=== PATIENT | male | born 1970 | race African-American/Black ===

== ENCOUNTER → 2020-12-01 16:14 | Outpatient (BNVA) | payer OTHER, SELFPAY | PROVIDERS: PCP Internal Medicine; Visit Provider Urology ==

== ENCOUNTER → 2021-01-06 14:11 | Outpatient (BNVA) | payer OTHER, SELFPAY | PROVIDERS: PCP Internal Medicine; Visit Provider Urology | DX: Z13.89 Encounter for screening for other disorder (principal) ==

== ENCOUNTER → 2021-05-26 15:31 | Outpatient (BNVA) | payer OTHER, SELFPAY | PROVIDERS: PCP Internal Medicine; Visit Provider Urology ==

== ENCOUNTER → 2021-11-24 14:23 | Outpatient (BNVA) | payer OTHER, SELFPAY | PROVIDERS: PCP Internal Medicine; Visit Provider Urology | DX: Z13.89 Encounter for screening for other disorder (principal) ==

== ENCOUNTER 2024-01-02 09:01 | Outpatient (AMB) | payer OTHER, SELFPAY ==
--- NOTE | 2024-01-02 09:11 | MHC.OFFVIS ---
Intake Visit Reasons: Hematuria follow up Intake Note: Patient is Present for Follow Up Hematuria Urology Medication: Dutasteride Antibiotic Allergies:None Blood Thinners:None Patient recently was experiencing Hematuria Allergies shellfish derived [SHELLFISH DERIVED] Allergy (Mild, Unverified 05/27/20 17:10) HIVES Medication List - Last Reconciled 01/02/24 by Miguel Ángel Soriano MD albuterol sulfate 90 mcg/actuation 0 mcg inhalation ciprofloxacin HCl 500 mg PO BID 7 days dutasteride 0.5 mg PO DAILY dutasteride 0.5 mg PO DAILY prednisone mg PO tranexamic acid 650 mg PO Q8H 10 days HPI Comments Details: Tyshawn VEGA is a very pleasant male. He is a patient of Dr. Rowe. He is seen for the following urologic conditions - lower urinary tract symptoms - recurring hematuria Previous persistent hematuria Had recommended repeat laser of prostate Has been given TXA previously Lower Urinary Tract Symptoms: Continue with plan follow-up. Current visit is for further evaluation of, lower urinary tract symptoms, predominate obstructive symptoms. Current treatment includes medication, 5-AR. Prior treatments include 03/26 , procedure, TURP. Prostate Symptom Score Moderate (9-19), Bother 3. Symptoms include incomplete emptying, weak stream, nocturia (>2), and are progressing. Results from testing include cystoscopy Enlarged median lobe 04/26 renal/bladder us Yes PVR 50 prostate size 70 Prior Prostate Score mild. Prostate volume 50+gm. Testing at next visit will include Prostate Symptom Score. Treatment plan continue with current medications [facility] Medical History Asthma Bladder outlet obstruction Dysuria Gross hematuria Hematuria Review of Systems Const Denies chills and Denies fever(s) Card Reports no additional complaints and Denies syncope Resp Denies cough GI Denies abdominal pain and Denies heartburn Reports as per HPI and Denies change in libido Neuro Denies syncope Psych Denies change in libido Endo Denies change in libido Physical Exam Const General: cooperative, healthy appearing, comfortable and no acute distress Orientation/consciousness: patient oriented x3 HEENT Face and sinus: Yes normal facial exam Mouth: moist mucous membranes Neck Neck: Yes normal visual inspection, Yes full ROM and Yes trachea midline Chest Chest palpation & inspection: normal inspection of the chest Resp Effort & Inspection: normal respiratory effort, able to speak in complete sentences and no respiratory distress GI Inspection: Yes normal to inspection Back/Spine/Pelvis Cervical Spine: normal cervical lordosis Thoracic/Lumbar Spine: thoracic and lumbar spine normal to inspection Skin General skin exam: no rashes or lesions noted Neuro General: patient oriented x3, gait normal, tone normal and moves all extremities Extrem General: Yes normal to inspection and Yes capillary refill normal Assessment & Plan Assessment & Plan (1) BPH w urinary obs/LUTS: Code(s): N40.1 - Benign prostatic hyperplasia with lower urinary tract symptoms; N13.8 - Other obstructive and reflux uropathy Category: Medical (2) Gross hematuria: Code(s): R31.0 - Gross hematuria Category: Medical Plan Risks, benefits and alternatives to therapy were discussed. These include but are not limited to infection, bleeding, damage to local organs and tissues, need for further interventions. Anesthetic risks regarding cardiac arrhythmia, blood clots, and potential mortality were discussed. The patient understands the typical recovery time and the outpatient nature of the procedure. After consideration of these risks the patient gives full informed consent and they wish to move ahead with the procedure. GreenLight laser prostatectomy Orders: Orders AMB Urinalysis Automated Today R31.0 - Gross hematuria, Z13.9 - Encounter for screening, unspecified Patient Instructions: Imaging studies, laboratory and physical exam results were discussed and reviewed in detail. No major barriers to patient understanding were identified. An opportunity to ask questions regarding the treatment plan was provided. All questions were answered. The patient expressed understanding and agreement with the above treatment plan. The patient is aware they should contact our office by phone for worsening of their current condition or the appearance of new urologic symptoms. Compliance is encouraged with any medications and followup testing that is ordered. It is a privilege to participate in the urologic care of your patient. If you have any questions or concerns regarding treatment for the above conditions, or other urologic issues, please do not hesitate to contact me. The office telephone contact is [phone]. This note is constructed using voice recognition software. While every effort has been made to ensure accuracy food service associate errors may have been included. Yours sincerely, Dr Miguel Ángel Soriano MD, [facility] - Urology Providers of Expert, Compassionate Care for the Genitourinary System Coding Level of Care Code Est Pt Level 4 (31122) Diagnoses BPH w urinary obs/LUTS N40.1; N13.8 Gross hematuria R31.0
== END 2024-01-02 10:15 | disposition home or self-care (01) ==
PROVIDERS: PCP Nurse Practitioner Family; Visit Provider Urology
DX: N40.1 Benign prostatic hyperplasia with lower urinary tract symptoms (principal); N13.8 Other obstructive and reflux uropathy; R31.0 Gross hematuria
CPT/HCPCS: 99213

== ENCOUNTER → 2024-01-02 09:01 | Outpatient (BNVA) | payer OTHER, SELFPAY | PROVIDERS: PCP Nurse Practitioner Family; Visit Provider Urology ==

== ENCOUNTER 2024-02-12 14:25 | Outpatient (AMB) | payer OTHER, SELFPAY ==
--- NOTE | 2024-02-12 14:25 | MHC.OFFVIS ---
Intake Visit Reasons: medication review(Terazosin) Intake Note: Patient is Present for Telephone Follow Up For Med Review Urology Med: Dutasteride, Terazosin Antibiotic Allergy: None Blood Thinner: None Allergies shellfish derived [SHELLFISH DERIVED] Allergy (Mild, Verified 02/12/24 14:27) HIVES Medication List - Last Reconciled 02/12/24 by Miguel Ángel Soriano MD albuterol sulfate 90 mcg/actuation 0 mcg inhalation dutasteride 0.5 mg PO DAILY prednisone mg PO terazosin 10 mg PO BEDTIME 90 days tranexamic acid 650 mg PO Q8H 10 days HPI Comments Details: Tyshawn VEGA is a very pleasant male. He is a patient of Dr. Rowe. He is seen for the following urologic conditions - lower urinary tract symptoms - recurring hematuria Telemedicine Evaluation 15 min Consultation [employer] Jackie Video Dutasteride renewed Terazosin renew Has tranexamic acid Planned prostate procedure for April Lower Urinary Tract Symptoms: Continue with plan follow-up. Current visit is for further evaluation of, lower urinary tract symptoms, predominate obstructive symptoms. Current treatment includes medication, 5-AR. Prior treatments include 03/26 , procedure, TURP. Prostate Symptom Score Moderate (9-19), Bother 3. Symptoms include incomplete emptying, weak stream, nocturia (>2), and are progressing. Results from testing include cystoscopy Enlarged median lobe 04/26 renal/bladder us Yes PVR 50 prostate size 70 Prior Prostate Score mild. Prostate volume 50+gm. Testing at next visit will include Prostate Symptom Score. Treatment plan continue with current medications [facility] Medical History Hematuria Asthma Dysuria Gross hematuria Bladder outlet obstruction Review of Systems Const All systems reviewed & are unremarkable except as noted in HPI and below Reports no additional complaints Resp Reports no additional complaints GI Reports no additional complaints Reports as per HPI Musc Reports no additional complaints Physical Exam Telemedicine evaluation Appropriate responses Regular breathing rate and rhythm HEENT Head: Yes normal to inspection Ears: hearing grossly normal bilaterally Eyes General: appearance normal, both eyes and all related structures Neck Neck: Yes normal visual inspection Chest Chest palpation & inspection: normal inspection of the chest Resp Effort & Inspection: normal respiratory effort and able to speak in complete sentences Telehealth Telehealth Telehealth Platform: [employer] Location of provider rendering services: practice address Location of patient: address on file Patient Identification confirmed using: Name, : Yes Telehealth method: video Patient verbally consented to treatment: Yes Patient verbally consented to billing insurance company: Yes Patient informed of any privacy concerns related to visit: Yes Minutes spent on Phone/Video with Pt.: 15 Assessment & Plan Assessment & Plan (1) BPH w urinary obs/LUTS: Code(s): N40.1 - Benign prostatic hyperplasia with lower urinary tract symptoms; N13.8 - Other obstructive and reflux uropathy Category: Medical (2) Gross hematuria: Code(s): R31.0 - Gross hematuria Category: Medical Plan Risks, benefits and alternatives to therapy were discussed. These include but are not limited to infection, bleeding, damage to local organs and tissues, need for further interventions. Anesthetic risks regarding cardiac arrhythmia, blood clots, and potential mortality were discussed. The patient understands the typical recovery time and the outpatient nature of the procedure. After consideration of these risks the patient gives full informed consent and they wish to move ahead with the procedure. April procedure prostate Medications: New terazosin 10 mg PO BEDTIME 90 caps 1RF 90 days Refilled dutasteride 0.5 mg PO DAILY 90 caps 1RF N13.8 - Other obstructive and reflux uropathy, N40.1 - Benign prostatic hyperplasia with lower urinary tract symptoms Patient Instructions: Imaging studies, laboratory and physical exam results were discussed and reviewed in detail. No major barriers to patient understanding were identified. An opportunity to ask questions regarding the treatment plan was provided. All questions were answered. The patient expressed understanding and agreement with the above treatment plan. The patient is aware they should contact our office by phone for worsening of their current condition or the appearance of new urologic symptoms. Compliance is encouraged with any medications and followup testing that is ordered. It is a privilege to participate in the urologic care of your patient. If you have any questions or concerns regarding treatment for the above conditions, or other urologic issues, please do not hesitate to contact me. The office telephone contact is [phone]. This note is constructed using voice recognition software. While every effort has been made to ensure accuracy puller machine errors may have been included. Yours sincerely, Dr Miguel Ángel Soriano MD, [facility] - Urology Providers of Expert, Compassionate Care for the Genitourinary System Coding Level of Care Code Tele Est Pt Level 3 (11893) Diagnoses BPH w urinary obs/LUTS N40.1; N13.8 Gross hematuria R31.0
--- OUTSIDE RECORDS SUMMARY | 2024-02-15 09:58 | XMS_ITS | Continuity of Care Document ---
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 Name Role Phone Cynthia Jerome MD Primary Care Physician Encounter [facility] [place] Date(s): 10/05/19 - 10/15/19 [facility] [address] [place] [address]- [facility] Attending Physician: hSivani Laboy Admitting Physician: Shivani Laboy Referring Physician: AdmtrShivani Allergies, Adverse Reactions, Alerts Substance Reaction Severity Status shellfish hives Persistent Severe Active Other Food Allergy 1 Active 1crab meat Immunizations Given and Recorded Vaccine Date Status Refusal Reason influenza virus vaccine, inactivated 1 05/27/19 Gi inna influenza virus vaccine, inactivated 06/17/18 Give n influenza virus vaccine, inactivated 06/18/17 Give n influenza virus vaccine, inactivated 06/20/16 Give n influenza virus vaccine, inactivated 11/22/15 Give n influenza virus vaccine, inactivated 10/31/13 Give n tetanus/diphtheria/pertussis, acel(Tdap) 08/20/17 Given FluLaval (oldterm) 2 09/20/12 Given Tet/Diphth/Acel, Pertussis (oldterm) 08/30/07 Give n Pneumococcal Vaccine (oldterm) 3 12/07/06 Given 1Result Comment: [facility] [id number] 2Admin Note: vis date 03/11/2012 3Result Comment: [id number] Medications cetirizine 10 mg oral tablet See Instructions, # 90 tablet, Refills 4 Tot. Refills 4, TAKE ONE TABLET BY MOUTH EVERY NIGHT AT BEDTIME, [facility] Start Date: 01/07/19 Status: Ordered DuoNeb 3 mg-0.5 mg/3 ml inhalation solution 3 mL, Neb, 3 times a day, # 63 mL, 0 Refills, Maintenance, 01/04/17 18:58:49, Solution, 3 mL Neb 3 times a day,x7 days Start Date: 01/04/17 Stop Date: 01/11/17 Status: Ordered fluticasone 50 mcg/inh nasal spray See Instructions, # 16 Gm, Refills 5 Tot. Refills 5, USE 2 SPRAYS IN EACH NOSTRIL DAILY, [facility] Start Date: 01/07/19 Status: Ordered predniSONE 20 mg oral tablet See Instructions, 3 tablets for 3 days, then 2 tablets for 3 days thyen 1 tablet for 3 days, # 18 tablet, 0 Refills, Acute 10/16/19 12:26:00 EST, 10/05/19 12:25:00 EST, Tablet, [id number], 183, cm, 10/05/19 12:00:00 EST, Height, 186.1... Start Date: 10/05/19 Stop Date: 10/16/19 Status: Ordered Problem List Condition Effective Dates Status Health Status Inform ant Acid reflux(Confirmed) Active Asthma, moderate persistant(Confirmed) Active Hypercholesterolemia(Confirmed) Active HTN (hypertension)(Confirmed) Active Morbid Obesity(Confirmed) Active Obesity due to excess calories(Confirmed) Active Prostatism(Confirmed) Active Seasonal allergic rhinitis(Confirmed) Active Sleep apnea(Confirmed) Active Chest tightness(Confirmed) Active Vitamin D deficiency(Confirmed) Active Social History Social History Type Response Tobacco Other: 20 packyear h x, quit 2006. Sex
--- OUTSIDE RECORDS SUMMARY | 2024-02-15 09:58 | XMS_ITS | Continuity of Care Document ---
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 Gas Metal Arc Name Role Phone Rosario WOODY, Erin Primary Care Physician Encounter [facility] [place] Date(s): 10/05/19 - 10/12/19 [facility] [address] [place] [address]- [facility] Attending Physician: Heri WOODY, Booker Weber Referring Physician: Erick Rucker MD Allergies, Adverse Reactions, Alerts Substance Reaction Severity [...] Vaccine (oldterm) 3 12/07/06 Given 1Result Comment: [facility] [id number] 2Admin Note: vis date 03/11/2012 3Result Comment: [id number] Medications cetirizine 10 mg oral tablet See Instructions, # 90 tablet, Refills 4 Tot. Refills 4, TAKE ONE TABLET BY MOUTH EVERY NIGHT AT BEDTIME, [facility] Start Date: 01/07/19 Status: [...] USE 2 SPRAYS IN EACH NOSTRIL DAILY, [facility] Start Date: 01/07/19 Status: Ordered predniSONE 20 mg oral tablet See Instructions, 3 tablets for 3 days, then 2 tablets for 3 days thyen 1 tablet for 3 days, # 18 tablet, 0 Refills, Acute 10/16/19 12:26:00 EST, 10/05/19 12:25:00 EST, Tablet, [id number], 183, cm, 10/05/19 12:00:00 EST, Height, 186.1... Start Date: 10/05/19 Stop Date: 10/16/19 Status: Ordered Problem List Condition Effective Dates Status Health Status Inform ant Acid reflux(Confirmed) Active Asthma, moderate persistant(Confirmed) Active Hypercholesterolemia(Confirmed) Active HTN (hypertension)(Confirmed) Active Morbid Obesity(Confirmed) Active Obesity due to excess calories(Confirmed) Active Prostatism(Confirmed) Active Seasonal allergic rhinitis(Confirmed) Active Sleep apnea(Confirmed) Active Chest tightness(Confirmed) Active Vitamin D deficiency(Confirmed) Active Vital Signs Most recent to oldest [Reference Range]: 1 Height 183 cm (10/05/19 12:00 PM) Oxygen Saturation [94-100 %] 94 % (10/05/19 12:00 PM) Pulse Rate [55-90 bpm] 58 bpm (10/05/19 12:00 PM) Blood Pressure [90-138/55-84 mm Hg] 141/ 61mm Hg *H* (10/05/19 12:00 PM) Temperature [96.8-100.4 DegF] 97.9 DegF (10/05/19 12:00 PM) Blood pressure sites Arm, left (10/05/19 12:00 PM) Temperature Route Oral (10/05/19 12:00 PM) Weight Obtained Via Standing scale (10/05/19 12:00 PM) Social History Social History Type Response Tobacco Other: 20 packyear h x, quit 2006. Sex
--- OUTSIDE RECORDS SUMMARY | 2024-02-15 09:58 | XMS_ITS | Continuity of Care Document ---
Author Organization [facility] Address [address] [place] [id number]- Care Team Providers Care Concrete Bucket Unloader Name Role Phone Soledad ROOF ASSEMBLER, Marques Primary Care Physician Encounter 09/25/23 - 11/22/23 [facility] [address] [place] [id number]- Discharge Disposition: GOALS MET Allergies, Adverse Reactions, Alerts Substance Reaction Severity Status shellfish hives Persistent Severe Active Other Food Allergy 1 Active 1crab meat Immunizations Given and Recorded Vaccine Date Status Refusal Reason influenza virus vaccine, inactivated 07/13/22 Give n influenza virus vaccine, inactivated 1 07/10/20 Re corded influenza virus vaccine, inactivated 2 05/27/19 Gi inna influenza virus vaccine, inactivated 06/17/18 Give n influenza virus vaccine, inactivated 06/18/17 Give n influenza virus vaccine, inactivated 06/20/16 Give n influenza virus vaccine, inactivated 11/22/15 Give n influenza virus vaccine, inactivated 10/31/13 Give n SARS-CoV-2 (COVID-19) mRNA BNT-162b2 vac 09/13/21 Recorded SARS-CoV-2 (COVID-19) mRNA BNT-162b2 vac 02/24/21 Recorded SARS-CoV-2 (COVID-19) mRNA BNT-162b2 vac 02/03/21 Recorded tetanus/diphtheria/pertussis, acel(Tdap) 08/20/17 Given FluLaval (oldterm) 3 09/20/12 Given Tet/Diphth/Acel, Pertussis (oldterm) 08/30/07 Give n Pneumococcal Vaccine (oldterm) 4 12/07/06 Given 1Result Comment: [id number] exp 03/09/2021 2Result Comment: [facility] [id number] 3Admin Note: vis date 03/11/2012 4Result Comment: [id number] Medications Advair Diskus 500 mcg-50 mcg inhalation powder 1, puffs, Inhalation, 2 times a day, # 1 each, Refills 5, Tot. Refills 5, Maintenance, 10/09/23 16:05:00 EST, Route to Pharmacy Electronically, NCPDP_ID- [id number], [facility], 183, cm,10/09/23 15:14:00 EST, Height, 179.2, kg, 09/17/23... Start Date: 10/09/23 Status: Ordered albuterol 0.083% inhalation solution 3 mL = 2.5 mg, Inhalation, Every 6 hours, PRN for wheezing/shortness of breath, # 100 each, 3 Refills, Maintenance, 10/09/23 16:05:00 EST, Solution, [facility], Partial fill upon patient request if the prescription is for a schedule I... Start Date: 10/09/23 Stop Date: 10/03/24 Status: Ordered albuterol CFC free 90 mcg/inh inhalation aerosol 2, puffs, Inhalation, Every 4 hours, PRN, # 2 each, Refills 5, Tot. Refills 5, Maintenance, 10/09/23 16:05:00 EST, Aerosol, Route to Pharmacy Electronically, NCPDP_[id number], [facility], 183, cm, 10/09/23 15:14:00 EST, Height, 179.2,... Start Date: 10/09/23 Stop Date: 04/06/24 Status: Ordered All Day Allergy 10 mg oral tablet 1 tablet, By Mouth, Daily, # 90 tablet, 3 Refills, 10/09/23 16:05:00 EST, [facility], 183, cm, 10/09/23 15:14:00 EST, Height, 179.2, kg, 09/17/23 21:44:00 EST, Dry Weight Start Date: 10/09/23 Status: Ordered amLODIPine 10 mg oral tablet 1 tablet = 10 mg, By Mouth, Daily, # 90 tablet, 3 Refills, Maintenance, 10/09/23 16:05:00 EST, Tablet, [facility], Partial fill upon patient request if the prescription is for a schedule II opioid drug., 183, cm, 10/09/23 15:14:00 EST... Start Date: 10/09/23 Status: Ordered atorvastatin 10 mg oral tablet 1 tablet, By Mouth, Daily, # 90 tablet, 3 Refills, Maintenance, 10/09/23 16:05:00 EST, [facility], 183, cm, 10/09/23 15:14:00 EST, Height, 179.2, kg, 09/17/23 21:44:00 EST, Dry Weight Start Date: 10/09/23 Status: Ordered empagliflozin 25 mg oral tablet 1 tablet = 25 mg, By Mouth, Daily in AM, # 90 tablet, 3 Refills, Maintenance, 10/09/23 16:05:00 EST, Tablet, [facility], Partial fill upon patient request if the prescription is for a schedule II opioid drug., 183, cm, 10/09/23 15:14:... Start Date: 10/09/23 Status: Ordered FREESTYLE LANCETS MISC FREESTYLE LANCETS MISC, See Instructions, # 300 each, 3 Refills, Maintenance, use to check blood sugar for diabetes 4x daily. E11.9, 07/13/22 22:15:00 EDT, 183, cm, 07/13/22 22:09:00 EDT, Height Start Date: 07/13/22 Status: Ordered FreeStyle August 2 Monitor See Instructions, # 7 each, Maintenance, Use to check blood glucose 4 times daily for diabetes. E11.9, 10/09/23 16:17:00 EST, Supply, 183, cm, 10/09/23 15:14:00 EST, Height, 179.2, kg, 09/17/23 21:44:00 EST, Dry Weight Start Date: 10/09/23 Status: Ordered FreeStyle August 2 Sensors See Instructions, # 7 each, Refills 5, Tot. Refills 5, Maintenance, Use to check blood glucose 4 times daily for diabetes. E11.9, 10/09/23 16:17:00 EST, Supply, 183, cm, 10/09/23 15:14:00 EST, Height, 179.2, kg, 09/17/23 21:44:00 EST, Dry Weight Start Date: 10/09/23 Status: Ordered FREESTYLE LITE TEST STRP FREESTYLE LITE TEST STRP, See Instructions, # 300 each, 3 Refills, Maintenance, use to check blood sugar for diabetes 4x daily. E11.9, 07/13/22 22:18:00 EDT, 183, cm, 07/13/22 22:09:00 EDT, Height Start Date: 07/13/22 Status: Ordered furosemide 20 mg oral tablet 20 mg, 1, tablet, By Mouth, Daily, # 90 tablet, Refills 3, Tot. Refills 3, Maintenance, 10/09/23 16:05:00 EST, Route to Pharmacy Electronically, [facility], Partial fill upon patientrequest if the prescription is for a schedule II op... Start Date: 10/09/23 Status: Ordered hydrochlorothiazide-lisinopril 25 mg-20 mg oral tablet 1 tablet, By Mouth, Daily, # 90 tablet, 3 Refills, Maintenance, 10/09/23 16:05:00 EST, Tablet, [facility], Partial fill upon patient request, 1 tablet By Mouth Daily, 183, cm, 10/09/23 15:14:00 EST, Height, 179.2, kg, 09/17/23 21:44:0... Start Date: 10/09/23 Status: Ordered Lantus Solostar Pen 100 units/mL subcutaneous solution See Instructions, INJECT 32 UNITS SUBCUTANEOUSLY ONCE DAILY AT BEDTIME, # 15 mL, 5 Refills, Maintenance, 10/09/23 16:05:00 EST, [facility], 183, cm, 10/09/23 15:14:00 EST, Height, 179.2, kg, 09/17/23 21:44:00 EST, Dry Weight Start Date: 10/09/23 Status: Ordered montelukast 10 mg oral tablet 10 mg, 1, tablet, By Mouth, Daily, # 90 tablet, Refills 3, Tot. Refills 3, Soft Stop, 10/09/23 16:05:00 EST, Route to Pharmacy Electronically, [facility], 183, cm, 10/09/23 15:14:00 EST, Height, 179.2, kg, 09/17/23 21:44:00 EST, Dry W... Start Date: 10/09/23 Stop Date: 10/03/24 Status: Ordered omeprazole 20 mg oral enteric coated capsule 1 capsule, By Mouth, Daily, # 90 capsule, 3 Refills, Maintenance, 10/09/23 16:05:00 EST, [facility], 183, cm, 10/09/23 15:14:00 EST, Height, 179.2, kg, 09/17/23 21:44:00 EST, Dry Weight Start Date: 10/09/23 Status: Ordered Ozempic 2 mg/3 mL (0.25 mg or 0.5 mg dose) subcutaneous solution = 0.25 mg, Subcutaneous Injection, Every week, rotate injection sites, # 3 mL, 0 Refills, Maintenance, 10/09/23 16:27:00 EST, Solution, [facility], Partial fill upon patient request if the prescription is for a schedule II opioid drug... Start Date: 10/09/23 Stop Date: 12/04/23 Status: Ordered Pen [place], 31 G x 5 mm BD Ultra Fine III See Instructions, # 100 each, Refills 3, Tot. Refills 3, Maintenance, use once daily as for Type 2 Diabetes Mellitus, 10/09/23 16:17:00 EST, Supply, 183, cm, 10/09/23 15:14:00 EST, Height, 179.2, kg,09/17/23 21:44:00 EST, Dry Weight Start Date: 10/09/23 Stop Date: 10/03/24 Status: Ordered predniSONE 10 mg oral tablet See Instructions, Day 1-4: 5 tabs By Mouth Daily Day 5-8: 3 tabs By Mouth Daily Day 9-10: 1 tab By Mouth Daily, # 34 tablet, 0 Refills, Maintenance, 10/09/23 16:31:00 EST, [facility], Partial fill upon patient request if the prescri... Start Date: 10/09/23 Status: Ordered sildenafil 100 mg oral tablet 1 tablet = 100 mg, By Mouth, Daily, 1 hour before sexual activity, # 4 tablet, 0 Refills, Maintenance, 05/27/21 18:02:00 EDT, Tablet, [facility], Partial fill upon patient request ifthe prescription is for a schedule II opioid drug.,... Start Date: 05/27/21 Status: Ordered Vitamin D2 50,000 intl units (1.25 mg) oral capsule 1 capsule, By Mouth, Every week, # 13 capsule, 0 Refills, Maintenance, 10/09/23 16:05:00 EST, [facility], 183, cm, 10/09/23 15:14:00 EST, Height, 179.2, kg, 09/17/23 21:44:00 EST, Dry Weight Start Date: 10/09/23 Status: Ordered Problem List Condition Confirmation Course Effective Dates Status Health Status Informant Acid reflux Confirmed Active Asthma, moderate persistant Confirmed Active Degenerative arthritis of knee, bilateral Confirmed Active Diabetes mellitus Confirmed Active Hypercholesterolemia Confirmed Active HTN (hypertension) Confirmed Active Prostatism Confirmed Active Seasonal allergic rhinitis Confirmed Active Severe obesity Confirmed Active Sleep apnea Confirmed Active Vitamin D deficiency Confirmed Active Social History Social History Type Response Tobacco Other: 20 packyear h x, quit 2006. Sex Patient Care team information Care Team Personnel Name: Alicja Manzanares RN Position: S RN Member Role: Primary Care Nurse Name: Sri Jacobo RN Position: [facility] RN Member Role: Primary Care Nurse Name: Marques Rowe NP Position: [facility] PCO Associate Professional Member Role: PCP Address: Address: [address] [place] [address] [place], [place] [address] Name: Lola Fox RN Position: S RN Member Role: Primary Care Nurse Name: Malorie Salas RN Position: S RN Member Role: Primary Care Nurse Name: Shayla Frost RN Position: S RN Member Role: Primary Care Nurse Name: Sophia Crawford RN Position: [facility] Onco RN Member Role: Primary Care Nurse Care Team Related Persons Name: JOMAR VEGA Address: home [address] [place] [id number] Name: ASHLEIGH LAGOS Address: home [address] [address]
--- OUTSIDE RECORDS SUMMARY | 2024-02-15 09:58 | XMS_ITS | Continuity of Care Document ---
Author Organization [facility] Address [address] [place] [id number]- Care Team Providers Care Pallet Assembler Name Role Phone Soledad ADAME, Marques Primary Care Physician Encounter [facility] Date(s): 10/30/23 - 11/29/[address] [address]- Attending Physician: Shivani Laboy Admitting Physician: AdmShivani cesar Referring Physician: [id number] Allergies, Adverse Reactions, Alerts Substance Reaction Severity [...] Vaccine (oldterm) 4 12/07/06 Given 1Result Comment: [id number] exp 03/09/2021 2Result Comment: [facility] [id number] 3Admin Note: vis date 03/11/2012 4Result Comment: [id number] Medications Advair Diskus 500 mcg-50 mcg inhalation powder 1, puffs, Inhalation, 2 times a day, # 1 each, Refills 5, Tot. Refills 5, Maintenance, 10/09/23 16:05:00 EST, Route to Pharmacy Electronically, NCPDP_ID- [id number], [facility], 183, cm,10/09/23 15:14:00 EST, Height, 179.2, kg, 09/17/23... Start Date: 10/09/23 Status: Ordered albuterol 0.083% inhalation solution 3 mL = 2.5 mg, Inhalation, Every 6 hours, PRN for wheezing/shortness of breath, # 100 each, 3 Refills, Maintenance, 10/09/23 16:05:00 EST, Solution, [facility], Partial fill upon patient request if the prescription is for a schedule I... Start Date: 10/09/23 Stop Date: 10/03/24 Status: Ordered albuterol CFC free 90 mcg/inh inhalation aerosol 2, puffs, Inhalation, Every 4 hours, PRN, # 2 each, Refills 5, Tot. Refills 5, Maintenance, 10/09/23 16:05:00 EST, Aerosol, Route to Pharmacy Electronically, NCPDP_[id number], [facility], 183, cm, 10/09/23 15:14:00 EST, Height, 179.2,... Start Date: 10/09/23 Stop Date: 04/06/24 Status: Ordered All Day Allergy 10 mg oral tablet 1 tablet, By Mouth, Daily, # 90 tablet, 3 Refills, 10/09/23 16:05:00 EST, [facility], 183, cm, 10/09/23 15:14:00 EST, Height, 179.2, kg, 09/17/23 21:44:00 EST, Dry Weight Start Date: 10/09/23 Status: Ordered amLODIPine 10 mg oral tablet 1 tablet = 10 mg, By Mouth, Daily, # 90 tablet, 3 Refills, Maintenance, 10/09/23 16:05:00 EST, Tablet, [facility], Partial fill upon patient request if the prescription is for a schedule II opioid drug., 183, cm, 10/09/23 15:14:00 EST... Start Date: 10/09/23 Status: Ordered atorvastatin 10 mg oral tablet 1 tablet, By Mouth, Daily, # 90 tablet, 3 Refills, Maintenance, 10/09/23 16:05:00 EST, [facility], 183, cm, 10/09/23 15:14:00 EST, Height, 179.2, kg, 09/17/23 21:44:00 EST, Dry Weight Start Date: 10/09/23 Status: Ordered empagliflozin 25 mg oral tablet 1 tablet = 25 mg, By Mouth, Daily in AM, # 90 tablet, 3 Refills, Maintenance, 10/09/23 16:05:00 EST, Tablet, [facility], Partial fill upon patient request if [...] 10/09/23 16:05:00 EST, Route to Pharmacy Electronically, [facility], Partial fill upon patientrequest if the prescription is for a schedule II op... Start Date: 10/09/23 Status: Ordered hydrochlorothiazide-lisinopril 25 mg-20 mg oral tablet 1 tablet, By Mouth, Daily, # 90 tablet, 3 Refills, Maintenance, 10/09/23 16:05:00 EST, Tablet, [facility], Partial fill upon patient request, 1 tablet By Mouth Daily, 183, cm, 10/09/23 15:14:00 EST, Height, 179.2, kg, 09/17/23 21:44:0... Start Date: 10/09/23 Status: Ordered Lantus Solostar Pen 100 units/mL subcutaneous solution See Instructions, INJECT 32 UNITS SUBCUTANEOUSLY ONCE DAILY AT BEDTIME, # 15 mL, 5 Refills, Maintenance, 10/09/23 16:05:00 EST, [facility], 183, cm, 10/09/23 15:14:00 EST, Height, 179.2, kg, 09/17/23 21:44:00 EST, Dry Weight Start Date: 10/09/23 Status: Ordered montelukast 10 mg oral tablet 10 mg, 1, tablet, By Mouth, Daily, # 90 tablet, Refills 3, Tot. Refills 3, Soft Stop, 10/09/23 16:05:00 EST, Route to Pharmacy Electronically, [facility], 183, cm, 10/09/23 15:14:00 EST, Height, 179.2, kg, 09/17/23 21:44:00 EST, Dry W... Start Date: 10/09/23 Stop Date: 10/03/24 Status: Ordered omeprazole 20 mg oral enteric coated capsule 1 capsule, By Mouth, Daily, # 90 capsule, 3 Refills, Maintenance, 10/09/23 16:05:00 EST, [facility], 183, cm, 10/09/23 15:14:00 EST, Height, 179.2, kg, 09/17/23 21:44:00 EST, Dry Weight Start Date: 10/09/23 Status: Ordered Ozempic 2 mg/3 mL (0.25 mg or 0.5 mg dose) subcutaneous solution = 0.25 mg, Subcutaneous Injection, Every week, rotate injection sites, # 3 mL, 0 Refills, Maintenance, 10/09/23 16:27:00 EST, Solution, [facility], Partial fill upon patient request if the prescription is for a schedule II opioid drug... Start Date: 10/09/23 Stop Date: 12/04/23 Status: Ordered Pen [place], 31 G x 5 mm BD Ultra [...] tablet, 0 Refills, Maintenance, 10/09/23 16:31:00 EST, [facility], Partial fill upon patient request if the prescri... Start Date: 10/09/23 Status: Ordered sildenafil 100 mg oral tablet 1 tablet = 100 mg, By Mouth, Daily, 1 hour before sexual activity, # 4 tablet, 0 Refills, Maintenance, 05/27/21 18:02:00 EDT, Tablet, [facility], Partial fill upon patient request ifthe prescription is for a schedule II opioid drug.,... Start Date: 05/27/21 Status: Ordered Vitamin D2 50,000 intl units (1.25 mg) oral capsule 1 capsule, By Mouth, Every week, # 13 capsule, 0 Refills, Maintenance, 10/09/23 16:05:00 EST, [facility], 183, cm, 10/09/23 15:14:00 EST, [...] Team Personnel Name: Alicja Manzanares RN Position: [facility] RN Member Role: Primary Care Nurse Name: Sri Jacobo RN Position: [facility] RN Member Role: Primary Care Nurse Name: Marques Rowe NP Position: [facility] PCO Associate Professional Member Role: PCP Address: Address: [address] [place] [address] Name: Lola Fox RN Position: [facility] RN Member Role: Primary Care Nurse Name: Malorie Salas RN Position: [facility] RN Member Role: Primary Care Nurse Name: Shayla Frost RN Position: [facility] RN Member Role: Primary Care Nurse Name: Sophia Crawford RN Position: [facility] Onco RN Member Role: Primary Care Nurse Care Team Related Persons Name: JOMAR VEGA Address: home [address] [place] [id number] Name: ASHLEIGH LAGOS Address: home [address] [place] [address]
--- OUTSIDE RECORDS SUMMARY | 2024-02-15 09:58 | XMS_ITS | Continuity of Care Document ---
Author Organization [facility] Address [address] [place] [id number]- Care Team Providers Care Hospice Team Lead Name Role Phone Soledad REALTIME COURT REPORTER, Marques Primary Care Physician Encounter [facility] Date(s): 10/05/20 - 11/20/[address] [id number] Attending Physician: Rico Soriano MD Admitting Physician: Rico Soriano MD Allergies, Adverse Reactions, Alerts Substance Reaction Severity Status shellfish hives Persistent Severe Active Other Food Allergy 1 Active 1crab meat Immunizations Given and Recorded Vaccine Date Status Refusal Reason influenza virus vaccine, inactivated 1 07/10/20 Re corded influenza virus vaccine, inactivated 2 05/27/19 Gi inna influenza virus vaccine, inactivated 06/17/18 Give n influenza virus vaccine, inactivated 06/18/17 Give n influenza virus vaccine, inactivated 06/20/16 Give n influenza virus vaccine, inactivated 11/22/15 Give n influenza virus vaccine, inactivated 10/31/13 Give n tetanus/diphtheria/pertussis, acel(Tdap) 08/20/17 Given FluLaval (oldterm) 3 09/20/12 Given Tet/Diphth/Acel, Pertussis (oldterm) 08/30/07 Give n Pneumococcal Vaccine (oldterm) 4 12/07/06 Given 1Result Comment: [id number] exp 03/09/2021 2Result Comment: [facility] [id number] 3Admin Note: vis date 03/11/2012 4Result Comment: [id number] Problem List Condition Effective Dates Status Health Status Inform ant Acid reflux(Confirmed) Active Asthma, moderate persistant(Confirmed) Active Hypercholesterolemia(Confirmed) Active HTN (hypertension)(Confirmed) Active Morbid Obesity(Confirmed) Active Prostatism(Confirmed) Active Seasonal allergic rhinitis(Confirmed) Active Sleep apnea(Confirmed) Active Chest tightness(Confirmed) Active Vitamin D deficiency(Confirmed) Active Social History Social History Type Response Tobacco Other: 20 packyear h x, quit 2006. Sex
--- OUTSIDE RECORDS SUMMARY | 2024-02-15 09:58 | XMS_ITS | Continuity of Care Document ---
Author Organization [facility] ter Address [address] [place] [id number]- Care Team Providers Care Rn On Site Name Role Phone Marques Rowe NP Primary Care Physician Encounter [facility] Date(s): 12/02/23 - 01/10/[address] [address]- Attending Physician: Maximo Vega MD Admitting Physician: Maximo Vega MD Referring Physician: Marques Rowe NP Allergies, Adverse Reactions, Alerts Substance Reaction Severity [...] 08/30/07 Give n Pneumococcal Vaccine (oldterm) 4 3/30/07 Given 1Result Comment: [id number] exp 03/09/2021 2Result Comment: [facility] [id number] 3Admin Note: vis date 03/11/2012 4Result Comment: [id number] Medications Advair Diskus 500 mcg-50 mcg inhalation powder 1, puffs, Inhalation, 2 times a day, # 1 each, Refills 5, Tot. Refills 5, Maintenance, 10/09/23 16:05:00 EST, Route to Pharmacy Electronically, NCPDP_ID- [id number], [facility], 183, cm,10/09/23 15:14:00 EST, Height, 179.2, kg, 09/17/23... Start Date: 10/09/23 Status: Ordered albuterol 0.083% inhalation solution 3 mL = 2.5 mg, Inhalation, Every 6 hours, PRN for wheezing/shortness of breath, # 100 each, 3 Refills, Maintenance, 10/09/23 16:05:00 EST, Solution, [facility], Partial fill upon patient request if the prescription is for a schedule I... Start Date: 10/09/23 Stop Date: 10/03/24 Status: Ordered albuterol CFC free 90 mcg/inh inhalation aerosol 2, puffs, Inhalation, Every 4 hours, PRN, # 2 each, Refills 5, Tot. Refills 5, Maintenance, 10/09/23 16:05:00 EST, Aerosol, Route to Pharmacy Electronically, NCPDP_[id number], [facility], 183, cm, 10/09/23 15:14:00 EST, Height, 179.2,... Start Date: 10/09/23 Stop Date: 04/06/24 Status: Ordered All Day Allergy 10 mg oral tablet 1 tablet, By Mouth, Daily, # 90 tablet, 3 Refills, 10/09/23 16:05:00 EST, [facility], 183, cm, 10/09/23 15:14:00 EST, Height, 179.2, kg, 09/17/23 21:44:00 EST, Dry Weight Start Date: 10/09/23 Status: Ordered amLODIPine 10 mg oral tablet 1 tablet = 10 mg, By Mouth, Daily, # 90 tablet, 3 Refills, Maintenance, 10/09/23 16:05:00 EST, Tablet, [facility], Partial fill upon patient request if the prescription is for a schedule II opioid drug., 183, cm, 10/09/23 15:14:00 EST... Start Date: 10/09/23 Status: Ordered atorvastatin 10 mg oral tablet 1 tablet, By Mouth, Daily, # 90 tablet, 3 Refills, Maintenance, 10/09/23 16:05:00 EST, [facility], 183, cm, 10/09/23 15:14:00 EST, Height, 179.2, kg, 09/17/23 21:44:00 EST, Dry Weight Start Date: 10/09/23 Status: Ordered empagliflozin 25 mg oral tablet 1 tablet = 25 mg, By Mouth, Daily in AM, # 90 tablet, 3 Refills, Maintenance, 10/09/23 16:05:00 EST, Tablet, [facility], Partial fill upon patient request [...] 10/09/23 16:05:00 EST, Route to Pharmacy Electronically, [facility], Partial fill upon patientrequest if the prescription is for a schedule II op... Start Date: 10/09/23 Status: Ordered hydrochlorothiazide-lisinopril 25 mg-20 mg oral tablet 1 tablet, By Mouth, Daily, # 90 tablet, 3 Refills, Maintenance, 10/09/23 16:05:00 EST, Tablet, [facility], Partial fill upon patient request, 1 tablet By Mouth Daily, 183, cm, 10/09/23 15:14:00 EST, Height, 179.2, kg, 09/17/23 21:44:0... Start Date: 10/09/23 Status: Ordered Lantus Solostar Pen 100 units/mL subcutaneous solution See Instructions, INJECT 32 UNITS SUBCUTANEOUSLY ONCE DAILY AT BEDTIME, # 15 mL, 5 Refills, Maintenance, 10/09/23 16:05:00 EST, [facility], 183, cm, 10/09/23 15:14:00 EST, Height, 179.2, kg, 09/17/23 21:44:00 EST, Dry Weight Start Date: 10/09/23 Status: Ordered montelukast 10 mg oral tablet 10 mg, 1, tablet, By Mouth, Daily, # 90 tablet, Refills 3, Tot. Refills 3, Soft Stop, 10/09/23 16:05:00 EST, Route to Pharmacy Electronically, [facility], 183, cm, 10/09/23 15:14:00 EST, Height, 179.2, kg, 09/17/23 21:44:00 EST, Dry W... Start Date: 10/09/23 Stop Date: 10/03/24 Status: Ordered omeprazole 20 mg oral enteric coated capsule 1 capsule, By Mouth, Daily, # 90 capsule, 3 Refills, Maintenance, 10/09/23 16:05:00 EST, [facility], 183, cm, 10/09/23 15:14:00 EST, Height, 179.2, kg, 09/17/23 21:44:00 EST, Dry Weight Start Date: 10/09/23 Status: Ordered Pen [place], 31 G x 5 mm BD Ultra [...] Daily, # 34 tablet, 0 Refills, Maintenance, 12/17/23 13:58:00 EDT, [facility], Partial fill upon patient request if the prescri... Start Date: 12/17/23 Status: Ordered semaglutide 0.5 mg/0.5 mL (0.5 mg dose) subcutaneous solution = 0.5 mg, Subcutaneous Injection, Every week, for 4 week(s), in the abdomen, thigh, or upper arm, #2 mL, 3 Refills, Acute 04/07/24 14:02:00 EDT, 12/17/23 14:02:00 EDT, Solution, [facility], Partial fill upon patient request if the pr... Start Date: 12/17/23 Stop Date: 04/07/24 Status: Ordered sildenafil 100 mg oral tablet 1 tablet = 100 mg, By Mouth, Daily, 1 hour before sexual activity, # 4 tablet, 0 Refills, Maintenance, 05/27/21 18:02:00 EDT, Tablet, [facility], Partial fill upon patient request ifthe prescription is for a schedule II opioid drug.,... Start Date: 05/27/21 Status: Ordered tranexamic acid 650 mg oral tablet 1 tablet, By Mouth, 3 times a day, # 18 tablet, 0 Refills, Maintenance, 12/28/23 14:50:00 EDT, [facility], 183, cm, 12/17/23 17:58:00 EDT, Height, 182, kg, 11/07/23 17:47:00 EST, DryWeight Start Date: 12/28/23 Status: Ordered Vitamin D2 50,000 intl units (1.25 mg) oral capsule 1 capsule, By Mouth, Every week, # 13 capsule, 0 Refills, Maintenance, 10/09/23 16:05:00 EST, [facility], 183, cm, 10/09/23 15:14:00 [...] Team Personnel Name: Alicja Manzanares RN [facility] RN Member Role: Primary Care Nurse Name: Sri Jacobo RN Position: [facility] RN Member Role: Primary Care Nurse Name: Marques Rowe NP Position: [facility] PCO Associate Professional Member Role: PCP Address: Address: [address] [place] [address] [place] [address]- Name: Lola Fox RN Position: S RN Member Role: Primary Care Nurse Name: Malorie Salas RN Position: S RN Member Role: Primary Care Nurse Name: Shayla Frost RN Position: S RN Member Role: Primary Care Nurse Name: Sophia Crawford RN Position: [facility] Onco RN Member Role: Primary Care Nurse Care Team Related Persons Name: JOMAR VEGA Address: home [address] [place] [address] Name: ASHLEIGH LAGOS Address: home [address] [address]
--- OUTSIDE RECORDS SUMMARY | 2024-02-15 09:59 | XMS_ITS | Continuity of Care Document ---
Author Organization [facility] ter Address [address] [place] [address]- Care Team Providers Care Hrbp Name Role Phone Marques Rowe NP Primary Care Physician Encounter [facility] Date(s): 09/20/23 - 10/20/[address] [address]- Attending Physician: Not on Staff, Attending MD Admitting Physician: Not on Staff, Admitting MD Referring Physician: Not on Staff, Referring MD Allergies, Adverse Reactions, Alerts Substance Reaction [...] Vaccine (oldterm) 4 3/30/07 Given 1Result Comment: [id number] exp 03/09/2021 2Result Comment: [facility] [id number] 3Admin Note: vis date 03/11/2012 4Result Comment: [id number] Medications Advair Diskus 500 mcg-50 mcg inhalation powder 1, puffs, Inhalation, 2 times a day, # 1 each, Refills 5, Tot. Refills 5, Maintenance, 10/09/23 16:05:00 EST, Route to Pharmacy Electronically, NCPDP_ID- [id number], [facility], 183, cm,10/09/23 15:14:00 EST, Height, 179.2, kg, 09/17/23... Start Date: 10/09/23 Status: Ordered albuterol 0.083% inhalation solution 3 mL = 2.5 mg, Inhalation, Every 6 hours, PRN for wheezing/shortness of breath, # 100 each, 3 Refills, Maintenance, 10/09/23 16:05:00 EST, Solution, [facility], Partial fill upon patient request if the prescription is for a schedule I... Start Date: 10/09/23 Stop Date: 10/03/24 Status: Ordered albuterol CFC free 90 mcg/inh inhalation aerosol 2, puffs, Inhalation, Every 4 hours, PRN, # 2 each, Refills 5, Tot. Refills 5, Maintenance, 10/09/23 16:05:00 EST, Aerosol, Route to Pharmacy Electronically, NCPDP_ID-[id number], [facility], 183, cm, 10/09/23 15:14:00 EST, Height, 179.2,... Start Date: 10/09/23 Stop Date: 04/06/24 Status: Ordered All Day Allergy 10 mg oral tablet 1 tablet, By Mouth, Daily, # 90 tablet, 3 Refills, 10/09/23 16:05:00 EST, [facility], 183, cm, 10/09/23 15:14:00 EST, Height, 179.2, kg, 09/17/23 21:44:00 EST, Dry Weight Start Date: 10/09/23 Status: Ordered amLODIPine 10 mg oral tablet 1 tablet = 10 mg, By Mouth, Daily, # 90 tablet, 3 Refills, Maintenance, 10/09/23 16:05:00 EST, Tablet, [facility], Partial fill upon patient request if the prescription is for a schedule II opioid drug., 183, cm, 10/09/23 15:14:00 EST... Start Date: 10/09/23 Status: Ordered atorvastatin 10 mg oral tablet 1 tablet, By Mouth, Daily, # 90 tablet, 3 Refills, Maintenance, 10/09/23 16:05:00 EST, [facility], 183, cm, 10/09/23 15:14:00 EST, Height, 179.2, kg, 09/17/23 21:44:00 EST, Dry Weight Start Date: 10/09/23 Status: Ordered empagliflozin 25 mg oral tablet 1 tablet = 25 mg, By Mouth, Daily in AM, # 90 tablet, 3 Refills, Maintenance, 10/09/23 16:05:00 EST, Tablet, [facility], Partial fill upon patient request [...] 16:05:00 EST, Route to Pharmacy Electronically, [facility], Partial fill upon patientrequest if the prescription is for a schedule II op... Start Date: 10/09/23 Status: Ordered hydrochlorothiazide-lisinopril 25 mg-20 mg oral tablet 1 tablet, By Mouth, Daily, # 90 tablet, 3 Refills, Maintenance, 10/09/23 16:05:00 EST, Tablet, [facility], Partial fill upon patient request, 1 tablet By Mouth Daily, 183, cm, 10/09/23 15:14:00 EST, Height, 179.2, kg, 09/17/23 21:44:0... Start Date: 10/09/23 Status: Ordered Lantus Solostar Pen 100 units/mL subcutaneous solution See Instructions, INJECT 32 UNITS SUBCUTANEOUSLY ONCE DAILY AT BEDTIME, # 15 mL, 5 Refills, Maintenance, 10/09/23 16:05:00 EST, [facility], 183, cm, 10/09/23 15:14:00 EST, Height, 179.2, kg, 09/17/23 21:44:00 EST, Dry Weight Start Date: 10/09/23 Status: Ordered montelukast 10 mg oral tablet 10 mg, 1, tablet, By Mouth, Daily, # 90 tablet, Refills 3, Tot. Refills 3, Soft Stop, 10/09/23 16:05:00 EST, Route to Pharmacy Electronically, [facility], 183, cm, 10/09/23 15:14:00 EST, Height, 179.2, kg, 09/17/23 21:44:00 EST, Dry W... Start Date: 10/09/23 Stop Date: 10/03/24 Status: Ordered omeprazole 20 mg oral enteric coated capsule 1 capsule, By Mouth, Daily, # 90 capsule, 3 Refills, Maintenance, 10/09/23 16:05:00 EST, [facility], 183, cm, 10/09/23 15:14:00 EST, Height, 179.2, kg, 09/17/23 21:44:00 EST, Dry Weight Start Date: 10/09/23 Status: Ordered Ozempic 2 mg/3 mL (0.25 mg or 0.5 mg dose) subcutaneous solution = 0.25 mg, Subcutaneous Injection, Every week, rotate injection sites, # 3 mL, 0 Refills, Maintenance, 10/09/23 16:27:00 EST, Solution, [facility], Partial fill upon patient request if the prescription is for a schedule II opioid drug... Start Date: 10/09/23 Stop Date: 12/04/23 Status: Ordered Pen [place], 31 G x 5 mm BD Ultra [...] tablet, 0 Refills, Maintenance, 10/09/23 16:31:00 EST, [facility], Partial fill upon patient request if the prescri... Start Date: 10/09/23 Status: Ordered sildenafil 100 mg oral tablet 1 tablet = 100 mg, By Mouth, Daily, 1 hour before sexual activity, # 4 tablet, 0 Refills, Maintenance, 05/27/21 18:02:00 EDT, Tablet, [facility], Partial fill upon patient request ifthe prescription is for a schedule II opioid drug.,... Start Date: 05/27/21 Status: Ordered Vitamin D2 50,000 intl units (1.25 mg) oral capsule 1 capsule, By Mouth, Every week, # 13 capsule, 0 Refills, Maintenance, 10/09/23 16:05:00 EST, [facility], 183, cm, 10/09/23 15:14:00 [...] Team Personnel Name: Alicja Manzanares RN Position: [facility] RN Member Role: Primary Care Nurse Name: Sri Jacobo RN Position: [facility] RN Member Role: Primary Care Nurse Name: Marques Rowe NP Position: [facility] PCO Associate Professional Member Role: PCP Address: Address: [address] [place] [address] Name: Lola Fox RN Position: [facility] RN Member Role: Primary Care Nurse Name: Malorie Salas RN Position: [facility] RN Member Role: Primary Care Nurse Name: Shayla Frost RN Position: [facility] RN Member Role: Primary Care Nurse Name: Sophia Crawford RN Position: [facility] Onco RN Member Role: Primary Care Nurse Care Team Related Persons Name: GARY JOMAR Address: home [address] [place] [address] Name: ASHLEIGH LAGOS Address: home [address] [place] [id number]
--- OUTSIDE RECORDS SUMMARY | 2024-02-15 09:59 | XMS_ITS | Continuity of Care Document ---
Author Organization [facility] Address [address] [place] [address]- Care Team Providers Care Plate Keeper Name Role Phone Soledad PRE PAROLE COUNSELING AIDE, Marques Primary Care Physician Encounter [facility] Date(s): 04/25/23 - 05/25/23 [facility] [address] [place] [id number] Allergies, Adverse Reactions, Alerts Substance Reaction Severity [...] Vaccine (oldterm) 4 12/07/06 Given 1Result Comment: [id number] exp 03/09/2021 2Result Comment: [facility] [id number] 3Admin Note: vis date 03/11/2012 4Result Comment: [id number] Medications Advair Diskus 500 mcg-50 mcg inhalation powder 1, puffs, Inhalation, 2 times a day, # 1 each, Refills 11, Tot. Refills 11, Maintenance, 07/13/22 22:22:00 EDT, Route to Pharmacy Electronically, NCPDP_ID- [id number], [facility], 183, cm, 07/13/22 22:09:00 EDT, Height Start Date: 07/13/22 Status: Ordered albuterol 0.083% inhalation solution 3 mL = 2.5 mg, Inhalation, Every 6 hours, PRN for wheezing/shortness of breath, # 60 mL, 0 Refills,Maintenance, 05/31/22 15:53:00 EDT, Solution, [facility], Partial fill upon patient request if the prescription is for a schedule II o... Start Date: 05/31/22 Status: Ordered albuterol CFC free 90 mcg/inh inhalation aerosol 2, puffs, Inhalation, Every 4 hours, PRN, # 2 each, Refills 5, Tot. Refills 5, Maintenance, 05/23/23 11:48:00 EDT, Aerosol, Route to Pharmacy Electronically, NCPDP_[id number], [facility], 183, , 05/23/23 10:47:00 EDT, Height Start Date: 05/23/23 Stop Date: 11/19/23 Status: Ordered All Day Allergy 10 mg oral tablet 1 tablet, By Mouth, Daily, # 90 tablet, 3 Refills, 05/23/23 11:51:00 EDT, [facility], 183, , 05/23/23 10:47:00 EDT, Height Start Date: 05/23/23 Status: Ordered amLODIPine 10 mg oral tablet 1 tablet = 10 mg, By Mouth, Daily, # 90 tablet, 3 Refills, Maintenance, 03/30/23 15:54:00 EDT, Tablet, [facility], Partial fill upon patient request if the prescription is for a schedule II opioid drug., 183, cm, 03/30/23 15:10:00 EDT... Start Date: 03/30/23 Status: Ordered atorvastatin 10 mg oral tablet 1 tablet, By Mouth, Daily, # 90 tablet, 3 Refills, Maintenance, 07/13/22 22:12:00 EDT, [facility], 183, cm, 07/13/22 22:09:00 EDT, Height Start Date: 07/13/22 Status: Ordered empagliflozin 25 mg oral tablet 1 tablet = 25 mg, By Mouth, Daily in AM, # 90 tablet, 3 Refills, Maintenance, 03/30/23 15:48:00 EDT, Tablet, [facility], Partial fill upon patient request if the prescription is for a schedule II opioid drug., 183, cm, 03/30/23 15:10:... Start Date: 03/30/23 Stop Date: 03/24/24 Status: Ordered FREESTYLE LANCETS MISC FREESTYLE LANCETS MISC, See Instructions, # 300 each, 3 Refills, Maintenance, use to check blood sugar for diabetes 4x daily. E11.9, 07/13/22 22:15:00 EDT, 183, cm, 07/13/22 22:09:00 EDT, Height Start Date: 07/13/22 Status: Ordered FreeStyle August 2 Monitor See Instructions, # 7 each, Maintenance, Use to check blood glucose 4 times daily for diabetes. E11.9, 09/15/22 11:52:00 EST, Supply, 183, cm, 09/15/22 11:16:00 EST, Height Start Date: 09/15/22 Status: Ordered FreeStyle August 2 Sensors See Instructions, # 7 each, Maintenance, Use to check blood glucose 4 times daily for diabetes. E11.9, 09/15/22 11:53:00 EST, Supply, 183, cm, 09/15/22 11:16:00 EST, Height Start Date: 09/15/22 Status: Ordered FREESTYLE LITE TEST STRP FREESTYLE LITE TEST STRP, See Instructions, # 300 each, 3 Refills, Maintenance, use to check blood sugar for diabetes 4x daily. E11.9, 07/13/22 22:18:00 EDT, 183, cm, 07/13/22 22:09:00 EDT, Height Start Date: 07/13/22 Status: Ordered furosemide 20 mg oral tablet 20 mg, 1, tablet, By Mouth, Daily, # 30 tablet, Refills 0, Tot. Refills 0, Maintenance, 02/13/22 14:23:00 EDT, Route to Pharmacy Electronically, [facility], Partial fill upon patientrequest if the prescription is for a schedule II op... Start Date: 02/13/22 Status: Ordered hydrochlorothiazide-lisinopril 25 mg-20 mg oral tablet 1 tablet, By Mouth, Daily, # 90 tablet, 3 Refills, Maintenance, 07/13/22 22:22:00 EDT, Tablet, [facility], Partial fill upon patient request, 1 tablet By Mouth Daily, 183, cm, 07/13/22 22:09:00 EDT, Height Start Date: 07/13/22 Status: Ordered Lantus Solostar Pen 100 units/mL subcutaneous solution See Instructions, INJECT 20 UNITS SUBCUTANEOUSLY ONCE DAILY AT BEDTIME, # 15 mL, 3 Refills, Maintenance, 07/11/22 17:50:00 EDT, [facility], 183, cm, 06/15/22 8:46:00 EDT, Height Start Date: 07/11/22 Status: Ordered metFORMIN 1000 mg oral tablet 1 tablet = 1,000 mg, By Mouth, 2 times a day, # 180 tablet, 3 Refills, Maintenance, 07/13/22 22:22:00 EDT, Tablet, [facility], Partial fill upon patient request if the prescription is for a schedule II opioid drug., 183, cm, 07/13/22... Start Date: 07/13/22 Stop Date: 07/08/23 Status: Ordered montelukast 10 mg oral tablet 10 mg, 1, tablet, By Mouth, Daily, # 90 tablet, Refills 3, Tot. Refills 3, Soft Stop, 05/23/23 11:51:00 EDT, Route to Pharmacy Electronically, [facility], 183, cm, 05/23/23 10:47:00 EDT, Height Start Date: 05/23/23 Stop Date: 05/17/24 Status: Ordered Nasonex 50 mcg/inh nasal spray 1 sprays, Nares, Both, Daily, # 17 Gm, 0 Refills, Maintenance, 06/08/22 13:55:00 EDT, [place], [facility], Partial fill upon patient request if the prescription is for a schedule II opioid drug., 1 sprays Nares, Both Daily, 183, cm, .. Start Date: 06/08/22 Status: Ordered omeprazole 20 mg oral enteric coated capsule 1 capsule, By Mouth, Daily, # 90 capsule, 0 Refills, Maintenance, 03/28/23 15:03:00 EDT, [facility], 183, cm, 01/19/23 17:39:00 EDT, Height Start Date: 03/28/23 Status: Ordered Pen [place], 31 G x 5 mm BD Ultra Fine III See Instructions, # 100 each, Refills 3, Tot. Refills 3, Maintenance, use once daily as for Type 2 Diabetes Mellitus, 07/13/22 22:20:00 EDT, Supply, 183, cm, 07/13/22 22:09:00 EDT, Height Start Date: 07/13/22 Stop Date: 07/08/23 Status: Ordered predniSONE 10 mg oral tablet See Instructions, take 4 tabs PO day 1-3, take 3 tabs PO day 4-6, take 2 tabs PO day 7-9, take 1 tab PO day 10-12, # 30 tablet, 0 Refills, Maintenance, 05/23/23 11:49:00 EDT, Tablet, [facility], Partial fill upon patient request if th... Start Date: 05/23/23 Status: Ordered ProAir HFA 90 mcg/inh inhalation aerosol 2 puffs, Inhalation, Every 6 hours, PRN as needed for wheezing, # 18 Gm, 0 Refills, Maintenance, 05/04/23 23:22:00 EDT, Aerosol, [id number], Partial fill upon patient request if the prescription is for a schedule II opioid drug., 183,... Start Date: 05/04/23 Status: Ordered sildenafil 100 mg oral tablet 1 tablet = 100 mg, By Mouth, Daily, 1 hour before sexual activity, # 4 tablet, 0 Refills, Maintenance, 05/27/21 18:02:00 EDT, Tablet, [facility], Partial fill upon patient request ifthe prescription is for a schedule II opioid drug.,... Start Date: 05/27/21 Status: Ordered tranexamic acid 650 mg oral tablet 1 tablet = 650 mg, By Mouth, 3 times a day, # 18 tablet, 0 Refills, Maintenance, 03/30/23 15:51:00 EDT, Tablet, [facility], Partial fill upon patient request if the prescription is for a schedule II opioid drug., 183, cm, 03/30/23 15:... Start Date: 03/30/23 Stop Date: 04/05/23 Status: Ordered Vitamin D2 50,000 intl units (1.25 mg) oral capsule 1 capsule, By Mouth, Every week, # 13 capsule, 0 Refills, Maintenance, 03/29/23 14:07:00 EDT, [facility], 183, cm, 01/19/23 17:39:00 EDT, Height Start Date: 03/29/23 Status: Ordered Problem List Condition Confirmation Course Effective Dates Status Health Status Informant Acid reflux Confirmed Active Asthma, moderate persistant Confirmed Active Degenerative arthritis of knee, bilateral Confirmed Active Diabetes mellitus Confirmed Active Hypercholesterolemia Confirmed Active HTN (hypertension) Confirmed Active Morbid Obesity Confirmed Active Prostatism Confirmed Active Seasonal allergic rhinitis Confirmed Active Severe obesity Confirmed Active Sleep apnea Confirmed Active Vitamin D deficiency Confirmed Active Social History Social History Type Response Tobacco Other: 20 packyear h x, quit 2006. Sex Patient Care team information Care Team Personnel Name: Marques Rowe NP Position: [facility] PCO Associate Professional Member Role: PCP Address: Address: [address] [place] [address] [place] [address]- Name: Sophia Crawford RN Position: [facility] RN Member Role: Primary Care Nurse Care Team Related Persons Name: JOMAR VEGA Address: home [address] [place] [id number] Name: ASHLEIGH LAGOS Address: home [address] [address]
--- OUTSIDE RECORDS SUMMARY | 2024-02-15 09:59 | XMS_ITS | Continuity of Care Document ---
Author Organization [facility] ter Address [address] [place] [id number]- Care Team Providers Care Heat Treating Operator Name Role Phone Soledad ADAME, Marques Primary Care Physician [place] [facility] [place]05[place]22 - 12/08/[address] [address] Attending Physician: Erwin Law MD Admitting Physician: Thanh WOODY, Erwin Referring Physician: Erwin Law MD Allergies, Adverse Reactions, Alerts Substance Reaction [...] Vaccine (oldterm) 4 3/30/07 Given 1Result Comment: [id number] exp 03/09/2021 2Result Comment: [facility] [id number] 3Admin Note: vis date 03/11/2012 4Result Comment: [id number] Medications Advair Diskus 500 mcg-50 mcg inhalation powder 1, puffs, Inhalation, 2 times a day, # 1 each, Refills 11, Tot. Refills 11, Maintenance, 07/13/22 22:22:00 EDT, Route to Pharmacy Electronically, NCPDP_ID- [id number], [facility], 183, cm, 07/13/22 22:09:00 EDT, Height Start Date: 07/13/22 Status: Ordered albuterol 0.083% inhalation solution 3 mL = 2.5 mg, Inhalation, Every 6 hours, PRN for wheezing/shortness of breath, # 60 mL, 0 Refills,Maintenance, 05/31/22 15:53:00 EDT, Solution, [facility], Partial fill upon patient request if the prescription is for a schedule II o... Start Date: 05/31/22 Status: Ordered All Day Allergy 10 mg oral tablet 1 tablet, By Mouth, Daily, # 90 tablet, 3 Refills, 12/04/22 16:31:00 EDT, [facility], 183, cm, 09/28/22 12:55:00 EST, Height Start Date: 12/04/22 Status: Ordered amLODIPine 10 mg oral tablet 1 tablet = 10 mg, By Mouth, Daily, # 90 tablet, 3 Refills, Maintenance, 02/13/22 14:14:00 EDT, Tablet, [facility], Partial fill upon patient request if the prescription is for a schedule II opioid drug., 183, cm, 02/13/22 13:12:00 EDT... Start Date: 02/13/22 Status: Ordered atorvastatin 10 mg oral tablet 1 tablet, By Mouth, Daily, # 90 tablet, 3 Refills, Maintenance, 07/13/22 22:12:00 EDT, [facility], 183, cm, 07/13/22 22:09:00 EDT, Height Start Date: 07/13/22 Status: Ordered empagliflozin 10 mg oral tablet 1 tablet = 10 mg, By Mouth, Daily in AM, # 90 tablet, 3 Refills, Maintenance, 09/15/22 11:58:00 EST, Tablet, [facility], Partial fill upon patient request if the prescription is for a schedule II opioid drug., 183, cm, 09/15/22 11:16:... Start Date: 09/15/22 Stop Date: 09/10/23 Status: Ordered ergocalciferol 23574 iu oral capsule 50,000 International_Units, 1, capsule, By Mouth, Every week, # 13 capsule, Refills 0, Tot. Refills0, Maintenance, 10/15/22 1:19:00 EST, Route to Pharmacy Electronically, [facility], Partial fill upon patient request if the prescript... Start Date: 10/15/22 Stop Date: 01/14/23 Status: Ordered FREESTYLE LANCETS MISC FREESTYLE LANCETS [...] 02/13/22 14:23:00 EDT, Route to Pharmacy Electronically, [facility], Partial fill upon patientrequest if the prescription is for a schedule II op... Start Date: 02/13/22 Status: Ordered hydrochlorothiazide-lisinopril 25 mg-20 mg oral tablet 1 tablet, By Mouth, Daily, # 90 tablet, 3 Refills, Maintenance, 07/13/22 22:22:00 EDT, Tablet, [facility], Partial fill upon patient request, 1 tablet By Mouth Daily, 183, cm, 07/13/22 22:09:00 EDT, Height Start Date: 07/13/22 Status: Ordered Lantus Solostar Pen 100 units/mL subcutaneous solution See Instructions, INJECT 20 UNITS SUBCUTANEOUSLY ONCE DAILY AT BEDTIME, # 15 mL, 3 Refills, Maintenance, 07/11/22 17:50:00 EDT, [facility], 183, cm, 06/15/22 8:46:00 EDT, Height Start Date: 07/11/22 Status: Ordered metFORMIN 1000 mg oral tablet 1 tablet = 1,000 mg, By Mouth, 2 times a day, # 180 tablet, 3 Refills, Maintenance, 07/13/22 22:22:00 EDT, Tablet, [facility], Partial fill upon patient request if the prescription is for a schedule II opioid drug., 183, cm, 07/13/22... Start Date: 07/13/22 Stop Date: 07/08/23 Status: Ordered montelukast 10 mg oral tablet 10 mg, 1, tablet, By Mouth, Daily, # 90 tablet, Refills 3, Tot. Refills 3, Soft Stop, 12/05/21 17:18:00 EDT, Route to Pharmacy Electronically, [facility], 183, cm, 08/31/21 12:05:00 EST, Height Start Date: 12/05/21 Stop Date: 11/30/22 Status: Ordered Nasonex 50 mcg/inh nasal spray 1 sprays, Nares, Both, Daily, # 17 Gm, 0 Refills, Maintenance, 06/08/22 13:55:00 EDT, [place], [facility], Partial fill upon patient request if the prescription is for a schedule II opioid drug., 1 sprays Nares, Both Daily, 183, cm, ... Start Date: 06/08/22 Status: Ordered omeprazole 20 mg oral enteric coated capsule 1 capsule, By Mouth, Daily, # 90 capsule, 0 Refills, Maintenance, 10/06/22 13:33:00 EST, [facility], 183, cm, 09/28/22 12:55:00 EST, Height Start Date: 10/06/22 Status: Ordered Pen [place], 31 G x 5 mm BD Ultra Fine III See Instructions, # 100 each, Refills 3, Tot. Refills 3, Maintenance, use once daily as for Type 2 Diabetes Mellitus, 07/13/22 22:20:00 EDT, Supply, 183, cm, 07/13/22 22:09:00 EDT, Height Start Date: 07/13/22 Stop Date: 07/08/23 Status: Ordered sildenafil 100 mg oral tablet 1 tablet = 100 mg, By Mouth, Daily, 1 hour before sexual activity, # 4 tablet, 0 Refills, Maintenance, 05/27/21 18:02:00 EDT, Tablet, [facility], Partial fill upon patient request ifthe prescription is for a schedule II opioid drug.,... Start Date: 05/27/21 Status: Ordered tranexamic acid 650 mg oral tablet 1 tablet = 650 mg, By Mouth, 3 times a day, # 18 tablet, 0 Refills, Maintenance, 08/13/22 0:42:00 EST, Tablet, [facility], Partial fill upon patient request if the prescription is for a schedule II opioid drug., 183, cm, 07/13/22 22:0... Start Date: 08/13/22 Stop Date: 08/19/22 Status: Ordered Ventolin HFA 108 mcg/inh inhalation aerosol with adapter 2 puffs, Inhalation, 4 times a day, PRN for wheezing, # 2 each, 5 Refills, Maintenance, 07/22/22 12:32:00 EST, Aerosol, [facility], Partial fill upon patient request if the prescription is for a schedule II opioid drug., 183, cm, 110... Start Date: 07/22/22 Status: Ordered Problem List Condition Confirmation Course [...] Team Personnel Name: Marques Rowe NP Position: [facility] PCO Associate Professional Member Role: PCP Address: Address: [address] [place] [address] [place] [address]- Name: Sophia Crawford RN Position: [facility] RN Member Role: Primary Care Nurse Care Team Related Persons Name: JOMAR VEGA Address: home [address] [place] [id number] Name: ASHLEIGH LAGOS Address: home [address] [place] [id number]
--- OUTSIDE RECORDS SUMMARY | 2024-02-15 09:59 | XMS_ITS | Continuity of Care Document ---
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 Name Role Phone Soledad ADAME, Marques Primary Care Physician Encounter [facility] [place] Date(s): 11/07/23 - 12/07/23 [facility] [address] [place] [address]- Attending Physician: Shivani Laboy Admitting Physician: Shivani Laboy Referring Physician: [...] Vaccine (oldterm) 4 3/30/07 Given 1Result Comment: [id number] exp 03/09/2021 2Result Comment: [facility] [id number] 3Admin Note: vis date 03/11/2012 4Result Comment: [id number] Medications Advair Diskus 500 mcg-50 mcg inhalation powder 1, puffs, Inhalation, 2 times a day, # 1 each, Refills 5, Tot. Refills 5, Maintenance, 10/09/23 16:05:00 EST, Route to Pharmacy Electronically, NCPDP_ID- [id number], [facility], 183, cm,10/09/23 15:14:00 EST, Height, 179.2, kg, 09/17/23... Start Date: 10/09/23 Status: Ordered albuterol 0.083% inhalation solution 3 mL = 2.5 mg, Inhalation, Every 6 hours, PRN for wheezing/shortness of breath, # 100 each, 3 Refills, Maintenance, 10/09/23 16:05:00 EST, Solution, [facility], Partial fill upon patient request if the prescription is for a schedule I... Start Date: 10/09/23 Stop Date: 10/03/24 Status: Ordered albuterol CFC free 90 mcg/inh inhalation aerosol 2, puffs, Inhalation, Every 4 hours, PRN, # 2 each, Refills 5, Tot. Refills 5, Maintenance, 10/09/23 16:05:00 EST, Aerosol, Route to Pharmacy Electronically, NCPDP_[id number], [facility], 183, cm, 10/09/23 15:14:00 EST, Height, 179.2,... Start Date: 10/09/23 Stop Date: 04/06/24 Status: Ordered All Day Allergy 10 mg oral tablet 1 tablet, By Mouth, Daily, # 90 tablet, 3 Refills, 10/09/23 16:05:00 EST, [facility], 183, cm, 10/09/23 15:14:00 EST, Height, 179.2, kg, 09/17/23 21:44:00 EST, Dry Weight Start Date: 10/09/23 Status: Ordered amLODIPine 10 mg oral tablet 1 tablet = 10 mg, By Mouth, Daily, # 90 tablet, 3 Refills, Maintenance, 10/09/23 16:05:00 EST, Tablet, [facility], Partial fill upon patient request if the prescription is for a schedule II opioid drug., 183, cm, 10/09/23 15:14:00 EST... Start Date: 10/09/23 Status: Ordered atorvastatin 10 mg oral tablet 1 tablet, By Mouth, Daily, # 90 tablet, 3 Refills, Maintenance, 10/09/23 16:05:00 EST, [facility], 183, cm, 10/09/23 15:14:00 EST, Height, 179.2, kg, 09/17/23 21:44:00 EST, Dry Weight Start Date: 10/09/23 Status: Ordered empagliflozin 25 mg oral tablet 1 tablet = 25 mg, By Mouth, Daily in AM, # 90 tablet, 3 Refills, Maintenance, 10/09/23 16:05:00 EST, Tablet, [facility], Partial fill upon patient request [...] 10/09/23 16:05:00 EST, Route to Pharmacy Electronically, [facility], Partial fill upon patientrequest if the prescription is for a schedule II op... Start Date: 10/09/23 Status: Ordered hydrochlorothiazide-lisinopril 25 mg-20 mg oral tablet 1 tablet, By Mouth, Daily, # 90 tablet, 3 Refills, Maintenance, 10/09/23 16:05:00 EST, Tablet, [facility], Partial fill upon patient request, 1 tablet By Mouth Daily, 183, cm, 10/09/23 15:14:00 EST, Height, 179.2, kg, 09/17/23 21:44:0... Start Date: 10/09/23 Status: Ordered Lantus Solostar Pen 100 units/mL subcutaneous solution See Instructions, INJECT 32 UNITS SUBCUTANEOUSLY ONCE DAILY AT BEDTIME, # 15 mL, 5 Refills, Maintenance, 10/09/23 16:05:00 EST, [facility], 183, cm, 10/09/23 15:14:00 EST, Height, 179.2, kg, 09/17/23 21:44:00 EST, Dry Weight Start Date: 10/09/23 Status: Ordered montelukast 10 mg oral tablet 10 mg, 1, tablet, By Mouth, Daily, # 90 tablet, Refills 3, Tot. Refills 3, Soft Stop, 10/09/23 16:05:00 EST, Route to Pharmacy Electronically, [facility], 183, cm, 10/09/23 15:14:00 EST, Height, 179.2, kg, 09/17/23 21:44:00 EST, Dry W... Start Date: 10/09/23 Stop Date: 10/03/24 Status: Ordered omeprazole 20 mg oral enteric coated capsule 1 capsule, By Mouth, Daily, # 90 capsule, 3 Refills, Maintenance, 10/09/23 16:05:00 EST, [facility], 183, cm, 10/09/23 15:14:00 EST, Height, 179.2, kg, 09/17/23 21:44:00 EST, Dry Weight Start Date: 10/09/23 Status: Ordered Ozempic 2 mg/3 mL (0.25 mg or 0.5 mg dose) subcutaneous solution = 0.25 mg, Subcutaneous Injection, Every week, rotate injection sites, # 3 mL, 0 Refills, Maintenance, 10/09/23 16:27:00 EST, Solution, [facility], Partial fill upon patient request if the prescription is for a schedule II opioid drug... Start Date: 10/09/23 Stop Date: 12/04/23 Status: Ordered Pen [place], 31 G x 5 mm BD Ultra [...] tablet, 0 Refills, Maintenance, 10/09/23 16:31:00 EST, [facility], Partial fill upon patient request if the prescri... Start Date: 10/09/23 Status: Ordered sildenafil 100 mg oral tablet 1 tablet = 100 mg, By Mouth, Daily, 1 hour before sexual activity, # 4 tablet, 0 Refills, Maintenance, 05/27/21 18:02:00 EDT, Tablet, [facility], Partial fill upon patient request ifthe prescription is for a schedule II opioid drug.,... Start Date: 05/27/21 Status: Ordered Vitamin D2 50,000 intl units (1.25 mg) oral capsule 1 capsule, By Mouth, Every week, # 13 capsule, 0 Refills, Maintenance, 10/09/23 16:05:00 EST, [facility], 183, cm, 10/09/23 15:14:00 [...] Team Personnel Name: Alicja Manzanares RN Position: [facility] RN Member Role: Primary Care Nurse Name: Sri Jacobo RN Position: [facility] RN Member Role: Primary Care Nurse Name: Marques Roew NP Position: [facility] PCO Associate Professional Member Role: PCP Address: Address: [address] [place] [address] Name: Lola Fox RN Position: [facility] RN Member Role: Primary Care Nurse Name: Malorie Salas RN Position: [facility] RN Member Role: Primary Care Nurse Name: Shayla Frost RN Position: [facility] RN Member Role: Primary Care Nurse Name: Sophia Crawford RN Position: [facility] Onco RN Member Role: Primary Care Nurse Care Team Related Persons Name: GARY JOMAR Address: home [address] [place] [address] Name: ASHLEIGH LAGOS Address: home [address] [place] [id number]
--- OUTSIDE RECORDS SUMMARY | 2024-02-15 09:59 | XMS_ITS | Continuity of Care Document ---
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 Name Role Phone Soledad ADAME, Marques Primary Care Physician Encounter [facility] [place] Date(s): 09/15/23 - 09/22/[address] [address]- Encounter Diagnosis Asthma(Final) - 09/15/23 Discharge Disposition: A-D/C Home Attending Physician: Hugo Cook MD Admitting Physician: Albert Hoyt DO Referring Physician: Not on Staff, Referring MD [...] mRNA [id number] vac 02/03/21 Recorded tetanus/diphtheria/pertussis, acel(Tdap) 12/11/17 Given FluLaval (oldterm) 3 09/20/12 Given Tet/Diphth/Acel, Pertussis (oldterm) 08/30/07 Give n Pneumococcal Vaccine (oldterm) 4 12/07/06 Given 1Result Comment: [id number] exp 03/09/2021 2Result Comment: [facility] [id number] 3Admin Note: vis date 03/11/2012 4Result Comment: [id number] Medications Advair Diskus 500 mcg-50 mcg inhalation powder 1, puffs, Inhalation, 2 times a day, # 1 each, Refills 2, Tot. Refills 2, Maintenance, 09/22/23 9:59:00 EST, Route to Pharmacy Electronically, [id number], [facility], 183, cm, 09/22/23 5:17:00 EST, Height, 179.2... Start Date: 09/22/23 Status: Ordered albuterol 0.083% inhalation solution 3 mL = 2.5 mg, Inhalation, Every 6 hours, PRN for wheezing/shortness of breath, # 100 each, 2 Refills, Maintenance, 09/22/23 9:59:00 EST, Solution, [facility], Partial fill upon patientrequest if the prescription is for a schedule II op... Start Date: 09/22/23 Stop Date: 06/18/24 Status: Ordered albuterol CFC free 90 mcg/inh inhalation aerosol 2, puffs, Inhalation, Every 4 hours, PRN, # 2 each, Refills 5, Tot. Refills 5, Maintenance, 09/22/23 9:59:00 EST, Aerosol, Route to Pharmacy Electronically, [id number], [facility], 183, cm, 09/22/23 5:17:00 EST,... Start Date: 09/22/23 Stop Date: 03/20/24 Status: Ordered All Day Allergy 10 mg oral tablet 1 tablet, By Mouth, Daily, # 90 tablet, 3 Refills, 05/23/23 11:51:00 EDT, [facility], 183, cm, 05/23/23 10:47:00 EDT, Height Start Date: 05/23/23 Status: Ordered amLODIPine 10 mg oral tablet 10 mg, Tablet, By Mouth, Hold for: SBP <110, 09/22/23 9:00:00 EST Start Date: 09/22/23 Stop Date: 09/22/23 Status: Completed amLODIPine 10 mg oral tablet 1 tablet = 10 mg, By Mouth, Daily, # 30 tablet, 2 Refills, Maintenance, 09/22/23 9:59:00 EST, Tablet, [facility], Partial fill upon patient request if the prescription is for a scheduleII opioid drug., 183, cm, 09/22/23 5:17:00 EST, Hei... Start Date: 09/22/23 Status: Ordered atorvastatin 10 mg oral tablet 1 tablet, By Mouth, Daily, # 30 tablet, 2 Refills, Maintenance, 09/22/23 10:00:00 EST, [facility], 183, cm, 09/22/23 5:17:00 EST, Height, 179.2, kg, 09/17/23 21:44:00 EST, Dry Weight Start Date: 09/22/23 Status: Ordered Augmentin 500 mg-125 mg oral tablet 1 tablet, By Mouth, Every 8 hours, for 3 days, # 9 tablet, 0 Refills, Acute 09/25/23 10:00:00 EST, 09/22/23 10:00:00 EST, Tablet, [facility], Partial fill upon patient request if the prescription is for a schedule II opioid drug., 183, c... Start Date: 09/22/23 Stop Date: 09/25/23 Status: Ordered azithromycin 250 mg oral tablet 1 tablet = 250 mg, By Mouth, Daily, for 3 days, # 3 tablet, 0 Refills, Acute 09/25/23 10:01:00 EST,09/22/23 10:01:00 EST, Tablet, [facility], Partial fill upon patient request if the prescription is for a schedule II opioid drug., 183,... Start Date: 09/22/23 Stop Date: 09/25/23 Status: Ordered Cough Relief 15 mg/5 mL oral syrup 5 mL = 15 mg, By Mouth, Every 4 hours, PRN for cough, # 120 mL, 1 Refills, Acute 11/08/23 11:00:00 EST, 09/22/23 10:40:00 EST, Syrup, [facility], Partial fill upon patient request if the prescription is for a schedule II opioid drug., 18... Start Date: 09/22/23 Stop Date: 11/08/23 Status: Ordered empagliflozin 25 mg oral tablet 1 tablet = 25 mg, By Mouth, Daily in AM, # 30 tablet, 2 Refills, Maintenance, 09/22/23 9:59:00 EST,Tablet, [facility], Partial fill upon patient request if the prescription is for a schedule II opioid drug., 183, cm, 09/22/23 5:17:00 ES... Start Date: 09/22/23 Stop Date: 09/16/24 Status: Ordered FREESTYLE LANCETS MISC FREESTYLE LANCETS MISC, See Instructions, # 300 each, 3 Refills, Maintenance, use to check blood sugar for diabetes 4x daily. E11.9, 07/13/22 22:15:00 EDT, 183, cm, 07/13/22 22:09:00 EDT, Height Start Date: 07/13/22 Status: Ordered FreeStyle August 2 Monitor See Instructions, # 7 each, Maintenance, Use to check blood glucose 4 times daily for diabetes. E11., 09/15/22 11:52:00 EST, Supply, 183, cm, 09/15/22 [...] By Mouth, Daily, # 30 tablet, Refills 2, Tot. Refills 2, Maintenance, 09/22/23 10:00:00 EST, Route to Pharmacy Electronically, [facility], Partial fill upon patient request if the prescription is for a schedule II opioi... Start Date: 09/22/23 Status: Ordered hydrochlorothiazide-lisinopril 25 mg-20 mg oral tablet 1 tablet, By Mouth, Daily, # 30 tablet, 2 Refills, Maintenance, 09/22/23 9:59:00 EST, Tablet, [facility], Partial fill upon patient request, 1 tablet By Mouth Daily, 183, cm, 09/22/23 5:17:00 EST, Height, 179.2, kg, 09/17/23 21:44:00 EST... Start Date: 09/22/23 Status: Ordered Lantus Solostar Pen 100 units/mL subcutaneous solution See Instructions, INJECT 32 UNITS SUBCUTANEOUSLY ONCE DAILY AT BEDTIME, # 15 mL, 2 Refills, Maintenance, 09/22/23 11:36:00 EST, [facility], 183, cm, 09/22/23 11:03:00 EST, Height, 179.2, kg, 09/17/23 21:44:00 EST, Dry Weight Start Date: 09/22/23 Status: Ordered lisinopril 20 mg oral tablet 40 mg, Tablet, By Mouth, 09/22/23 9:00:00 EST Start Date: 09/22/23 Stop Date: 09/22/23 Status: Completed montelukast 10 mg oral tablet 10 mg, 1, tablet, By Mouth, Daily, # 90 tablet, Refills 2, Tot. Refills 2, Soft Stop, 09/22/23 10:00:00 EST, Route to Pharmacy Electronically, [facility], 183, cm, 09/22/23 5:17:00 EST,Height, 179.2, kg, 09/17/23 21:44:00 EST, Dry Weight Start Date: 09/22/23 Stop Date: 06/18/24 Status: Ordered Nasonex 50 mcg/inh nasal spray 1 sprays, Nares, Both, Daily, # 17 Gm, 0 Refills, Maintenance, 06/08/22 13:55:00 EDT, [place], [facility], Partial fill upon patient request if the prescription is for a schedule II opioid drug., 1 sprays Nares, Both Daily, 183, cm, ... Start Date: 06/08/22 Status: Ordered omeprazole 20 mg oral enteric coated capsule 1 capsule, By Mouth, Daily, # 30 capsule, 2 Refills, Maintenance, 09/22/23 10:00:00 EST, [facility], 183, cm, 09/22/23 5:17:00 EST, Height, 179.2, kg, 09/17/23 21:44:00 EST, Dry Weight Start Date: 09/22/23 Status: Ordered Pen [place], 31 G x 5 mm BD Ultra [...] 0 Refills, Maintenance, 05/27/21 18:02:00 EDT, Tablet, [facility], Partial fill upon patient request ifthe prescription is for a schedule II opioid drug.,... Start Date: 05/27/21 Status: Ordered Vitamin D2 50,000 intl units (1.25 mg) oral capsule 1 capsule, By Mouth, Every week, # 13 capsule, 0 Refills, Maintenance, 07/23/23 19:49:00 EST, [facility], 183, cm, 05/23/23 10:47:00 EDT, Height Start Date: 07/23/23 Status: Ordered Problem List Condition Confirmation Course [...] Confirmed Active Vitamin D deficiency Confirmed Active Results Radiology Reports * Exam Date Time Procedure Performing Provider Status 09/20/23 1:21 PM Chest Portable Trish Summers; Auth (Verified) Notes: (Chest Portable) Reason For Exam: Shortness of Breath RESULT: Chest Portable Chest Portable Reason: Shortness of Breath; Clinical Question(s): Pneumonia; pleural effusion. COMPARISON: 09/15/2023. FINDINGS: Single AP upright chest x-ray labeled 12:52 PM. LUNGS AND PLEURA: Interval decreasing lung volumes with bronchovascular crowding versus mild pulmonary congestion. No sizable pleural effusion. No pneumothorax. HEART, MEDIASTINUM AND AMY: Heart is normal in size. Normal mediastinal and hilar contour. BONES AND SOFT TISSUES: No acute abnormality. IMPRESSION: Decrease in volumes with bronchovascular crowding versus mild pulmonary vascular congestion. WSN: [id number] Ordering Physician: Ivett Millard Dictated By: Edwin Bosch MD Dictated Date/Time: 09/20/23 4:25 pm Reviewed By: Edwin Bosch MD Signed By: Edwin Bosch MD Signed Date/Time: 09/20/23 4:25 pm Transcribed By: GRACIE Transcribed Date/Time: 09/20/23 4:22 pm * Exam Date Time Procedure Performing Provider Status 09/15/23 12:24 PM Chest 2 Views Frontal and Lat Jenni Moran; Nader (Verified) Notes: (Chest 2 Views Frontal and Lat) Reason For Exam: Chest Pain;Other: RESULT: Chest 2 Views Frontal and Lat Chest 2 Views Frontal and Lat Hx of Present Illness: Pt c o cough, +flu Sunday. Pt reports exertional SOB, hx asthma. Was prescribed prednisone Sunday, sts It's not helping .; Reason: Other:; Chest Pain; Clinical Question(s): Other: COMPARISON: 06/14/2022. FINDINGS: LINES AND TUBES: None. LUNGS AND PLEURA: No focal consolidation. Normal pulmonary vascularity. No pleural effusion. No pneumothorax. HEART, MEDIASTINUM AND AMY: Heart is normal in size. Normal mediastinal and hilar contour. BONES AND SOFT TISSUES: No acute abnormality. IMPRESSION: No focal consolidation or pleural effusion. WSN: [id number] Ordering Physician: Getachew Phipps Dictated By: Christiane Garay MD Dictated Date/Time: 09/15/23 12:35 p Reviewed By: Christiane Garay MD Signed By: Christiane Garay MD Signed Date/Time: 09/15/23 12:35 pm Transcribed By: GRACIE Transcribed Date/Time: 09/15/23 12:31 pm Vital Signs Most recent to oldest [Reference Range]: 1 2 3 Height 183 cm (09/22/23 11:03 AM) 183 cm (09/22/23 5:17 AM) 183 cm (09/21/23 10:39 PM) Weight 179.2 kg (09/17/23 9:44 PM) 170.9 kg (09/17/23 6:24 PM) 170.9 kg (09/17/23 2:20 AM) Oxygen Saturation [94-100 %] 95 % (09/22/23 11:03 AM) 96 % (09/22/23 5:17 AM) 96 % (09/21/23 10:39 PM) Pulse Rate [55-90 bpm] 102 bpm *H* (09/22/23 11:03 AM) 101 bpm *H* (09/22/23 5:17 AM) 100 bpm *H* (09/21/23 10:39 PM) Body Mass Index [18.5-24.99 kg/m2] 53.51 kg/m2 *>HHI* (09/17/23 9:44 PM) 51.03 kg/m2 *>HHI* (09/17/23 6:24 PM) 51.03 kg/m2 *>HHI* (09/17/23 2:20 AM) Blood Pressure [90-138/55-84 mm Hg] 110/65mm Hg (09/22/23 11:03 AM) 118/65mm Hg (09/22/23 9:22 AM) 118/65mm Hg (09/22/23 9:21 AM) Respiratory Rate [16-30 br/min] 18 br/min (09/22/23 11:03 AM) 20 br/min (09/22/23 5:17 AM) 20 br/min (09/21/23 10:39 PM) Temperature [96.8-100.4 DegF] 97.2 DegF (09/22/23 11:03 AM) 97.2 DegF (09/22/23 5:17 AM) 97.9 DegF (09/21/23 10:39 PM) Liters per Minute 3.5 L/min (09/22/23 11:03 AM) 3 L/min (09/22/23 5:17 AM) 3 L/min (09/21/23 10:39 PM) Mode of Delivery (Oxygen) Nasal cannula (09/22/23 11:03 AM) Nasal cannula (09/22/23 5:17 AM) Nasal cannula (09/21/23 10:39 PM) Blood pressure sites Arm, right (09/22/23 11:03 AM) Arm, left (09/22/23 5:17 AM) Arm, right (09/21/23 10:39 PM) Temperature Route Oral (09/22/23 11:03 AM) Oral (09/22/23 5:17 AM) Oral (09/21/23 10:39 PM) Dry Weight 179.2 kg (09/17/23 9:44 PM) 172.4 kg (09/17/23 6:24 PM) 172.4 kg (09/17/23 2:20 AM) Weight Obtained Via Standing scale (09/17/23 9:44 PM) Patient/family stated (09/16/23 3:04 PM) Dry Weight Obtained Via Patient/family s tated (09/15/23 11:02 AM) Social History Social History Type Response Tobacco Other: 20 packyear h x, quit 2006. Sex Admission evaluation note * Mariam Kingston: PERFORM Event Display: Admission Note Authored Date: Patient: ??AMEE VEGA ? Age:??53 Years?Sex:??Male?:??1970?? Chief Complaint/Reason for Consultation Hx of asthma. P/w 1.5 wks SOB, wheezing. tested flu + on Sunday. Finished PO steroid taper , w/o sxs improvement. . No CP/LE edema. No fevers or chills. History of Present Illness Patient is a 53-year-old male with past medical history of morbid obesity, ROULA???noncompliant with CPAP, essential hypertension, hyperlipidemia, T2DM, seasonal allergic rhinitis, moderate persistent asthma, GERD, vitamin D deficiency, degenerative joint disease. ?? Patient presented to emergency department with approximately 1.5 -week history of persistent dyspnea, intermittent dry non-productive cough, and feeling generally well.?Last week,??09/06,??he contacted PCP office and was started on prednisone taper which he??completed. ??Unfortunately without much symptomatic improvement.?This past Sunday (09/10), he tested negative for COVID, however was positive for influenza A. ??Due to feeling overall unwell, and no improvement in his breathing, he presented to emergency department today.?? Patient denied fevers, chills or rigors.?? Denies any chest pain, dizziness/lightheadedness or diaphoresis.?? No abdominal pain/distention/nausea/vomiting/diarrhea/melena.?? No lower extremity edema or asymmetry. ?? On arrival to ED patient was mildly hypertensive, with minimal tachycardia in the 90s???100s.?? He was mildly tachypneic mostly in the low 20s, and hypoxic requiring 3 LPM's NC. Initial lab work showed leukocytosis, unremarkable H/H and platelet levels.?? General chemistry panel was also reassuring with good renal function creatinine 0.9/BUN of 11; no electrolyte derangements. Twelve-lead EKG demonstrated sinus rhythm at a rate of 100 bpm; no prolonged QTc of 485; no evidence of acute ischemic changes.?? Compared to prior study from 09/28/2022. Basic will panel, confirmed influenza A Chest x-ray fortunately did not show any evidence of acute cardiopulmonary process, no consolidation or pleural effusion. ?? Patient required IV steroids and multiple??albuterol treatments in the ED to achieve??minimal symptomatic relief.?? He needs to be admitted for further evaluation and management. Review of Systems Constitutional symptoms: ??Negative except as documented in HPI.?? Respiratory symptoms:??As per HPI Cardiovascular symptoms:?Negative Gastrointestinal symptoms: ??Negative Genitourinary symptoms: ??Negative Neurologic symptoms:?Negative? Objective Measurements?? Height: 191 cm (09/15/23) Dry Weight: 172.4 kg (09/15/23) ?Vital Signs?? Temperature: 98.4 DegF (09/15/23 15:57:00) Temperature Route: Oral (09/15/23 15:57:00) Pulse Rate:??95 bpm??High (09/15/23 22:49:00) Respiratory Rate: 25 br/min (09/15/23 22:49:00) Systolic Blood Pressure:??154 mm Hg??High (09/15/23 22:49:00) Diastolic Blood Pressure:??98 mm Hg??High (09/15/23 22:49:00) Blood pressure sites: Arm, left (09/15/23 22:49:00) Mean Arterial Pressure: 117 mm Hg (09/15/23 22:49:00) Pulse Pressure: 56 mm Hg (09/15/23 22:49:00) Oxygen Saturation:??93 %??Low (09/15/23 22:49:00) Liters per Minute: 3 L/min (09/15/23 22:49:00) Mode of Delivery (Oxygen): Room air (09/15/23 22:49:00) Early Warning Score: 4 (09/15/23 22:49:17) ?? Pain Scores 1 - 10 Pain Scale Score: 7 (11:41) ? Intake/Output?? No Data Available ? Physical Exam GEN:??Extremely pleasant??gentleman. ??Morbidly obese.?? Sitting comfortably in wheelchair. ??On nasal cannula until p.m. subjective attractions??in the high 90s.?? Speaks in full sentences.?? Nontoxic. ??No distress.?? PONCE x 3. ??His arrived at a later time to provide collateral information??for medication list reviewed. CV: Regular rate and rhythm. S1 and S2 normal . No murmurs. PULM: ??BS clear to auscultation BL. ??On nasal cannula running at 2 LPM's NC, with O2 saturations in high 90s.?? Speaking in full sentences.?? Appears relaxed. ??No accessory muscle use or tripoding.?? No coughing. ABD: Soft. Nontender. Non-distended. Normal bowel sounds present x4 quadrants EXT:??No lower extremity edema or asymmetry. NEURO: No gross neurologic focal deficits. SKIN: No rashes warm/dry/well-perfused. ??No abnormal rashes or lesions.? Assessment/Plan Patient is a 53-year-old male with past medical history of morbid obesity, ROULA???noncompliant with CPAP, essential hypertension, hyperlipidemia, T2DM, seasonal allergic rhinitis, moderate persistent asthma, GERD, vitamin D deficiency, degenerative joint disease. ?? Diagnoses ?? Influenza A (J10.1): . Asthma exacerbation (J45.901): . Acute hypoxic respiratory failure (J96.01): . Shortness of breath (R06.02): . Presented with approximately 1.5-week history of persistent dyspnea, failed outpatient prednisone taper.?? This past Sunday tested positive for influenza A, negative for COVID-19 on home test.?? Arrived to ED mildly hypoxic, requiring supplemental oxygen, IV steroids and multiple albuterol treatments.?? At the time of bedside evaluation, he reported that he still feels tight, however lung sounds are reassuring. ??? Admit to acute care medical floor, telemetry monitoring ??? Continue IV Solumedrol 60 mg q6hrs; can start??tapering ??tomorrow depending on clinical course ???MELISSA q4hrs DuoNeb treatments ???PRN q4hrs DuoNeb treatments for wheezing/dyspnea ??? As needed Robitussin ??? As needed Tylenol ??? Incentive spirometry ?? Morbid Obesity (E66.01): . ROULA (obstructive sleep apnea) (G47.33): -Will closely monitor pulse oximetry when he sleeps.?? Ordered CPAP, however will likely refuse again. ?? Essential hypertension (I10): . -Resumed amlodipine 10 mg, hydrochlorothiazide/lisinopril???per home medication list, and Lasix 20 mg ?? Hyperlipidemia (E78.5): . -Continue atorvastatin 10 mg ?? Insulin dependent type 2 diabetes mellitus (E11.9): Reported that metformin was discontinued.?? He was instead started on empagliflozin.?? His Lantus was increased from 20 units to 24 units. -POC TID and QHS -Continue insulin Lantus 19 units QHS -SSI w. lispro -Diabetic diet ??? Hypoglycemia protocol -POC ?? Seasonal allergic rhinitis (J30.2): . -Resumed cetirizine, per home medication list ?? Chronic GERD (K21.9): . -Pantoprazole as a formally substitute for home omeprazole ?? Vitamin D deficiency (E55.9): . -Takes once weekly vitamin D2 50,000 units every Sunday, will hold for now ?? Multilevel degenerative disc disease (M53.9): . -PRN Tylenol ?? Quality Measures: DVT prophylaxis: Lovenox BID, per BMI Diet:??Diabetic diet Code Status: FULL CODE-as discussed with patient and his at bedside Medication list: confirmed with??patient and his at bedside ?? Opportunity for questions given and answered.?? Patient verbalized understanding and in agreement with the above plan. ?? I personally spent a total of??80 minutes reviewing the chart, notes, images, and labs, speakingwith nurses, examining and interviewing the patient,??speaking with family, placing orders, reconciling medications, and documenting in the medical record.? Histories Allergies Allergies ?(Active and Proposed Allergies Only) shellfish? (Severity: Persistent Severe, Onset: Unknown) ?Reactions: hives Other Food Allergy? (Severity: Unknown severity, Onset: Unknown) ?Comments: crab meat ? Past Medical History/Problem List Active Problems??(12) Acid reflux Asthma, moderate persistant Degenerative arthritis of knee, bilateral Diabetes mellitus HTN (hypertension) Hypercholesterolemia Morbid Obesity Prostatism Seasonal allergic rhinitis Severe obesity Sleep apnea Vitamin D deficiency ? Past Surgical History CT angiography of coronary artery with contrast at [facility]: 02/14/23 ? Social History Alcohol Details:??Use: Never. 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 Exercise Details:??Regular exercise: Yes. ??Exercise duration: 20. ??Exercise frequency: 5-6 times/week. ??Exercise type: Walking. Home/Environment Details:??Living situation: Home/Independent. ??Lives with: Children, Spouse. ??Other: has 7 children. Nutrition/Health Details:??Diet: Regular. Sexual Details:??Gender identity: Identifies as male. ??Self described orientation: Straight or heterosexual. ??Preferred pronoun: He/him. Substance Abuse Details:??Use: Never. Tobacco Details:??Other: 20 packyear hx, quit 2006. Electronic Cigarette/Vaping Details:??Electronic Cigarette Use: Never. ? Psychosocial History Independent,??employed. ??Happily . ?? Family History Mother: Asthma; Diabetes mellitus type II Father (): CAD - Coronary artery disease; Diabetes mellitus type II; Hypertension Mat. Grandmother: Cancer of breast ? Medications Home Medications Albuterol (albuterol CFC free 90 mcg/inh inhalation aerosol)?2?puff(s)?Inhalation?Every4 hours?as needed?for 30?Days?as needed for wheezing Albuterol (albuterol 0.083% inhalation solution)?3?Milliliter?2.5?Milligram?Inhalation?Every 6 hours?as needed?for wheezing/shortness of breath?for 90?Days Amlodipine (amLODIPine 10 mg oral tablet)?1?tab(s)?10?Milligram?By Mouth?Daily Atorvastatin (atorvastatin 10 mg oral tablet)?1?tab(s)?By Mouth?Daily Cetirizine (All Day Allergy 10 mg oral tablet)?1?tab(s)?By Mouth?Daily Durable Medical Equipment (Pen [place], 31 G x 5 mm BD Ultra Fine III)?See Instructions?for 90?Days?use once daily as for Type 2 Diabetes Mellitus Durable Medical Equipment (FreeStyle August 2 Monitor)?See Instructions?Use to check blood glucose 4 times daily for diabetes. E11.9 Durable Medical Equipment (FreeStyle August 2 Sensors)?See Instructions?Use to check blood glucose 4 times daily for diabetes. E11.9 empagliflozin (empagliflozin 25 mg oral tablet)?1?tab(s)?25?Milligram?By Mouth?Daily in AM?for 90?Days Ergocalciferol (Vitamin D2 50,000 intl units (1.25 mg) oral capsule)?1?capsule?By Mouth?Every week Fluticasone-Salmeterol (Advair Diskus 500 mcg-50 mcg inhalation powder)?1?puff(s)?Inhalation?2 times a day Furosemide (furosemide 20 mg oral tablet)?20?Milligram?1?tablet?By Mouth?Daily Hydrochlorothiazide-Lisinopril (hydrochlorothiazide-lisinopril 25 mg-20 mg oral tablet)?1?tab(s)?By Mouth?Daily Insulin Glargine (Lantus Solostar Pen 100 units/mL subcutaneous solution)?See Instructions?INJECT 20 UNITS SUBCUTANEOUSLY ONCE DAILY AT BEDTIME Miscellaneous Rx (FREESTYLE LANCETS ?? MISC)?See Instructions?use to check blood sugar for diabetes 4x daily. E11.9 Miscellaneous Rx (FREESTYLE LITE TEST STRP)?See Instructions?use to check blood sugar for diabetes 4x daily. E11.9 Mometasone Nasal (Nasonex 50 mcg/inh nasal spray)?1?spray(s)?Nares, Both?Daily Montelukast (montelukast 10 mg oral tablet)?10?Milligram?1?tablet?By Mouth?Daily?for 90?Days Omeprazole (omeprazole 20 mg oral enteric coated capsule)?1?capsule?By Mouth?Daily Sildenafil (sildenafil 100 mg oral tablet)?1?tab(s)?100?Milligram?By Mouth?Daily?1 hour before sexual activity Tranexamic Acid (tranexamic acid 650 mg oral tablet)?1?tab(s)?650?Milligram?By Mouth?3 times a day?for 6?Days ? Results Recent Labs BLOOD COUNT & DIFF WBC 6.2 k/mm3 ()?? 09/15/2023 12:00 RBC 4.75 m/mm3 ()?? 09/15/2023 12:00 Hgb 14.0 Gm/dL ()?? 09/15/2023 12:00 Hct 42.6 % ()?? 09/15/2023 12:00 MCV 89.7 femtoliters ()?? 09/15/2023 12:00 MCH 29.5 pg ()?? 09/15/2023 12:00 MCHC 32.9 g/dL (Low)?? 09/15/2023 12:00 Platelet Count 196 k/mm3 ()?? 09/15/2023 12:00 RDW-SD 38.4 femtoliters ()?? 09/15/2023 12:00 MPV 11.1 femtoliters ()?? 09/15/2023 12:00 Nucleated RBC (Automated) 0.0 #/100 WBC'S ()?? 09/15/2023 12:00 Abs. NRBC 0.0 k/mm3 ()?? 09/15/2023 12:00 Abs. Neut 3.5 k/mm3 ()?? 09/15/2023 12:00 Abs. Lymph 2.0 k/mm3 ()?? 09/15/2023 12:00 Abs. [place] 0.6 k/mm3 ()?? 09/15/2023 12:00 Abs. Eo 0.1 k/mm3 ()?? 09/15/2023 12:00 Abs. Baso 0.0 k/mm3 ()?? 09/15/2023 12:00 Neut % 56.4 % ()?? 09/15/2023 12:00 Lymph % 32.0 % ()?? 09/15/2023 12:00 [place] % 10.0 % ()?? 09/15/2023 12:00 Eos % 0.8 % ()?? 09/15/2023 12:00 Baso % 0.5 % ()?? 09/15/2023 12:00 Imm Gran 0.3 % ()?? 09/15/2023 12:00 Abs. Imm Gran 0.0 k/mm3 ()?? 09/15/2023 12:00 ?? CARDIAC High Sensitivity Troponin (HSTnT) 18 ng/L ()?? 09/15/2023 14:42 ?? CHEM GENERAL Sodium 140 mmol/L ()?? 09/15/2023 11:48 Potassium 3.8 mmol/L ()?? 09/15/2023 11:48 Chloride 101 mmol/L ()?? 09/15/2023 11:48 Bicarbonate Level 28 mmol/L ()?? 09/15/2023 11:48 Anion Gap 11 ()?? 09/15/2023 11:48 Glucose Level 217 mg/dL (High)?? 09/15/2023 11:48 BUN 11 mg/dL ()?? 09/15/2023 11:48 Creatinine-Blood 0.9 mg/dL ()?? 09/15/2023 11:48 Estimated GFR Creatinine 103 ML/MIN/1.73 M2 ()?? 09/15/2023 11:48 Calcium 8.8 mg/dL ()?? 09/15/2023 11:48 ?? HEME OTHER Hold Lavender Top SPECIMEN DISCARDED AFTER 24 HOURS. ()?? 09/15/2023 14:42 Hold Blue Top SPECIMEN DISCARDED AFTER 4 HOURS. ()?? 09/15/2023 14:42 ?? MISC. CHEMISTRY Hold Gel Top SPECIMEN DISCARDED AFTER 1 WEEK ()?? 09/15/2023 14:42 Hold Hodge Top SPECIMEN DISCARDED AFTER 1 WEEK ()?? 09/15/2023 14:42 ?? URINE OTHER Est Creatinine Clearance 111.43 mL/min ()?? 09/15/2023 12:59 ?? VIROLOGY Influenza A PCR POSITIVE (Abnormal)?? 09/15/2023 13:41 Influenza B PCR NEGATIVE ()?? 09/15/2023 13:41 RSV PCR NEGATIVE ()?? 09/15/2023 13:41 COVID-19 PCR Specimen Source NASAL ()?? 09/15/2023 13:41 COVID-19 PCR Result NEGATIVE ()?? 09/15/2023 13:41 ? Imaging(s) ?Chest 2 Views Frontal and Lat ?? 09/15/2023 12:24??by Christiane Garay MD ?IMPRESSION: ?? No focal consolidation or pleural effusion. ? EKG study * Event Display: EKG Authored Date: * Event Display: ECG 12-Lead Authored Date: Please click on pdf link to open report * Event Display: ECG 12-Lead Authored Date: Ventricular Rate: 100 BPM Atrial Rate: 100 BPM P-R Interval: 138 ms QRS Duration: 64 ms Q-T Interval: 376 ms QTC Calculation(Bazett): 485 ms P [place]: 78 degrees R [place]: 54 degrees T [place]: 99 degrees Baseline artifact limits ECG interpretation Probable Normal sinus rhythm Nonspecific T wave abnormality Borderline ECG When compared with ECG of 28-SEP-2022 13:08, No significant change was found Confirmed by SIMA MELGAR MD ([id number]) on 09/19/2023 9:31:37 AM [place]: SIMA MELGAR MD Cardiology * Event Display: Cardiac Rhythm Strips Authored Date: Hospital Progress note * Frieda Somers RN: VERIFY, PERFORM, SIGN Event Display: Progress Note Hospital Authored Date: Patient: AMEE VEGA Age: 53 years Sex: Male : 1970 Associated Diagnoses: None Author: Frieda Somers RN Findings Problem Related to Alteration in Respiratory Function (new) : Alteration in Respiratory Function/new 09/22/2023 11:00 EST Alteration in Resp Status Related to Influenza/RSV Goals & Outcomes, Respiratory Pt will maintain/resume baseline physical assessment, Pt will maintain adequate nutritional intake, Pt will maintain/resume normal fluid/electrolyte balance Interventions, Respiratory Resolved problem, Interventions no longer in effect Goals/Interventions, Respiratory Yes Respiratory, Problem Start 09/18/2023 10:52 Reviewed Plan with, Respiratory Patient Patient Progression, Respiratory Resolved problem Respiratory, Problem Resolved 09/22/2023 11:10 09/22/2023 9:00 EST Alteration in Resp Status Related to Influenza/RSV Goals & Outcomes, Respiratory Pt will maintain/resume baseline physical assessment, Pt will maintain adequate nutritional intake, Pt will maintain/resume normal fluid/electrolyte balance Interventions, Respiratory Assess/monitor tolerance to IV infusions; verify rate/dose, Position forcomfort & optimal oxygenation, Initiate pulmonary rehab nurse consult, Monitor sputum color & consistency. Report changes to MD, Teach/encourage use of incentive spirometer, Teach the proper use of inhalers Goals/Interventions, Respiratory Yes Respiratory, Problem Start 09/18/2023 10:52 Reviewed Plan with, Respiratory Patient Patient Progression, Respiratory Patient progressing according to plan . Nursing Data Vital Signs : VITAL SIGNS SECTION 09/22/2023 11:03 EST Temperature 97.2 DegF Temperature Route Oral Pulse Rate 102 bpm H Respiratory Rate 18 br/min Systolic Blood Pressure 110 mm Hg Diastolic Blood Pressure 65 mm Hg Blood pressure sites Arm, right Mean Arterial Pressure 80 mm Hg Pulse Pressure 45 mm Hg Oxygen Saturation 95 % Liters per Minute 3.5 L/min Mode of Delivery (Oxygen) Nasal cannula . Narrative/Incidental Patient alert and oriented x4. Precautions maintained for Flu. Tele rhythm NSR. On 3L NC scheduled nebs administered. Prod cough, cough syrup administered. Inc spirometer at bedside reinforced education. Independent ambulating to bathroom. States no pain. Please see biophysical for further assessment. Patient being discharged home with services. IV and tele discontinued. at bedside. Patient belongings with patient. Safety remained.. . Discharge Information Case Management Discharge Plan : Case Management Discharge Plan Data 09/18/2023 10:50 EST Discharge [employer] Pulmonary Rehab Discharge : Pulmonary Rehab Discharge Status 09/18/2023 10:50 EST Patient Going Home on Oxygen Yes Portable unit required Yes Oxygen Sat. Rm. Air 86 % Oxygen Device used at Home Nasal cannula Liter flow 3 LPM Oxygen Use Duration Continuous Informational handouts Oxygen Therapy Home care instructions Call company when you get home. Rehabilitation Discharge : Rehab Discharge Index 09/19/2023 15:27 EST Full chart review completed Not Done: Task Duplication (Not Done) 09/19/2023 15:11 EST Comments on treatment indicated 53 M admitted for SOB, wheezing, found to be influenza +. WBAT. Skilled PT for strength, balance, amb, transfers, stairs, safety. Rec home c services. Distance pt will ambulate >50ft Full chart review completed Yes Other findings see comment Plan of care PT Gait training, Transfer training, Therapeutic exercise, Functional Activities, Balance training, Neuromuscular education * Joey WOODY, Hugo: PERFORM Event Display: Progress Note Hospital Authored Date: Patient: ??AMEE VEGA ? Age:??53 Years?Sex:??Male?:??1970?? Attending Attestation (Hugo Cook MD):??I have seen and evaluated this patient. ??I have discussed the case and its management with the resident and agree with the findings and plan as documentedin the resident???s note. ? Pt much better--told me that he feels much better mild tachycardia could be from deconditioning WBC elevated but better and could also be from steroids He is aware about home O2 no wheezing on my exam wants to go home. Asked for refill of meds d/c with augmentin and azithromycin PCP f/u was advised ?? * Gregg WOODY, David A: MODIFY, PERFORM, MODIFY Event Display: Progress Note Hospital Authored Date: Patient: ??AMEE VEGA ? Age:??53 Years?Sex:??Male?:??1970?? 53-year-old male with history of type 2 diabetes mellitus admitted for respiratory failure in the setting of flu.?? in the Past 24 hours patient blood glucose has ranged from 1 76-385. This morning his a.m. blood sugar was 235. His last steroid dose was from yesterday and is being discharged. TDD in the past 24 hours were 78 which is equivalent to 0.43 units/kg. ?? We would recommend to discharge the patient on??metformin 1000 mg twice daily, Jardiance 25 Mg daily and increase Lantus to 32 units on discharge ?? The patient can follow-up with PCP for further management of his diabetes and titration of insulin. ?? Recommendations was communicated to primary team via telephone. ?? Rest of Management per primary team Thank you for consulting endocrinology/diabetes & metabolism.?Please do not hesitate to contact us on tigertext?? with any questions or concerns. Page #: [phone] David Escobedo MD PGY-V ?? *This note was dictated by [employer] voice detection software, for any errors or clarifications, please do not hesitate to connect with the scribe.? Consult note * Misa WOODY, Vikram: PERFORM Event Display: Consultation Note Authored Date: [id number] Patient: ??AMEE VEGA ? Age:??53 Years?Sex:??Male?:??1970?? Provider Clinical Summary Consult type: BIDS Reason for consultation: Type 2 diabetes mellitus, steroid use Requesting provider: Marietta Reed NP History of Present Illness 53-year-old male with past medical history of type 2 diabetes mellitus, hypertension, hyperlipidemia, obesity currently admitted to the hospital for acute hypoxemic respiratory failure??secondary to influenza infection.?? Patient was started on??steroids for management of??his respiratory failure. BIDS has been consulted for assistance with management of patient's type 2 diabetes mellitus??and hyperglycemia in the setting of steroid use. ?? Diabetes History: ?? Outpatient diabetes medications:??Lantus 24 units daily, metformin 1000 Mg twice daily, Jardiance 25 Mg daily ?? Home blood glucose monitoring:??POC fingersticks? HbA1C: 11.4% in September 2022 ?? Outpatient DM provider:??PCP ? Current Inpatient glycemic history and management: ?- Basal insulin:??Lantus 25 units daily ?-??Prandial insulin: Humalog 2 units starting at 100??mg/dL with interval increase of 2 units for every??50??mg/dL rise in blood glucose??TIDAC ?- Diet:??60 g carbohydrates per meal ?? Glycemic trends reviewed: Blood glucose range in the past 24 hours 301- >500, bedtime??BG??>500 and??this morning FBG??301mg/dL.?He received a total of 25 units of Lantus and 50 units of Humalog in the past 24 hours.. Physical Exam Vitals & Measurements T:??97.7?F?? TMIN:??97.5?F?? TMAX:??98.4?F?? HR:??91??(Peripheral)?? RR:??20?? BP:??116/75?? SpO2:??95%?? WT:??179.2??kg?? Patient not seen??due to??isolation Assessment/Plan 53-year-old male with past medical history of type 2 diabetes mellitus, hypertension, hyperlipidemia, obesity currently admitted to the hospital for acute hypoxemic respiratory failure??secondary to influenza infection.?? Patient was started on??steroids for management of??his respiratory failure. BIDS has been consulted for assistance with management of patient's type 2 diabetes mellitus??and hyperglycemia in the setting of steroid use. ?? Type 2 diabetes mellitus Home medications:??Lantus??24 units daily, metformin 1000 Mg twice daily, Jardiance 25 Mg daily Patient has had significant hyperglycemia over the past 24 hours, likely in the setting of steroid use??(day 3) ?Continue Lantus 25 units??daily ?Increase Humalog scale to start at??12 units for blood sugar 100mg/dL??with interval increase of??3 units for every 50mg/dL, 3 times daily AC??for today ?Starting tomorrow, please give NPH 40 units??1 hour prior to prednisone administration??(hold NPH if prednisone is being held) ?Would also decrease Humalog scale to start at 6 units for blood sugar 100mg/dL??with interval increase of 2 units for every 50mg/dL??3 times daily AC??starting tomorrow. ?? Plan of care discussed with Dr. Dominique, addendum to follow. ?? Vikram Bynum MD PGY IV Endocrinology, Diabetes, & Metabolism?? Problem List/Past Medical History Ongoing Acid reflux Asthma, moderate persistant Degenerative arthritis of knee, bilateral Diabetes mellitus HTN (hypertension) Hypercholesterolemia Morbid Obesity Prostatism Seasonal allergic rhinitis Severe obesity Sleep apnea TURP - Transurethral resection of prostate Vitamin D deficiency Procedure/Surgical History ???CT angiography of coronary artery with contrast at [facility] (02/14/2023) Medications Inpatient Acetaminophen Tablet, 650 mg, By Mouth, Every 4 hours, PRN amLODIPine 10 mg oral tablet, 10 mg, By Mouth, Daily atorvastatin 10 mg oral tablet, 10 mg, By Mouth, Daily Breo Ellipta 200 mcg-25 mcg Inhaler, 1 puffs, Inhalation, Daily Cetirizine Tablet, 10 mg, By Mouth, Daily Docusate Sodium Capsule, 100 mg= 1 capsule, By Mouth, 2 times a day, PRN Duoneb Inhalation Solution, 1 vials, BAND Nebulizer, 4 times a day Duoneb Inhalation Solution, 1 vials, BAND Nebulizer, Every 4 hours, PRN Enoxaparin Inj, 40 mg= 0.4 mL, Subcutaneous Injection, 2 times a day furosemide 20 mg oral tablet, 20 mg, By Mouth, Daily hydrochlorothiazide 25 mg oral tablet, 25 mg, By Mouth, Daily Insulin Glargine Inj, 25 units= 0.25 mL, Subcutaneous Injection, Daily at bedtime Insulin LISPRO Sliding Scale, 2-14 units, Subcutaneous Injection, 3 times a day before meals lisinopril 20 mg oral tablet, 40 mg, By Mouth, Daily Melatonin Tablet, 3 mg, By Mouth, Daily at bedtime, PRN MiraLax Powder, 17 Gm= 1 pack/packet, By Mouth, Daily, PRN montelukast 10 mg oral tablet, 10 mg, By Mouth, Daily NaCL 0.9% Flush, 3 mL, IV Push, Every 8 hours NaCL 0.9% Flush, 3 mL, IV Push, Every 8 hours, PRN pantoprazole 20 mg oral delayed release tablet, 20 mg, By Mouth, Daily predniSONE 20 mg oral tablet, 20 mg, By Mouth, Daily Robitussin DM Liquid, 10 mL, By Mouth, Every 4 hours, PRN Senna Tablet, 8.6 mg= 1 tablet, By Mouth, 2 times a day, PRN Simethicone Tablet, 80 mg, Chew, 3 times a day, PRN Home Advair Diskus 500 mcg-50 mcg inhalation powder, 1 puffs, Inhalation, 2 times a day, 11 refills albuterol 0.083% inhalation solution, 2.5 mg= 3 mL, Inhalation, Every 6 hours, PRN albuterol CFC free 90 mcg/inh inhalation aerosol, 2 puffs, Inhalation, Every 4 hours, PRN, 5 refills All Day Allergy 10 mg oral tablet, 1 tablet, By Mouth, Daily, 3 refills amLODIPine 10 mg oral tablet, 10 mg= 1 tablet, By Mouth, Daily, 3 refills atorvastatin 10 mg oral tablet, 1 tablet, By Mouth, Daily, 3 refills empagliflozin 25 mg oral tablet, 25 mg= 1 tablet, By Mouth, Daily in AM, 3 refills FREESTYLE LANCETS MISC, See Instructions, 3 refills FreeStyle August 2 Monitor, See Instructions FreeStyle August 2 Sensors, See Instructions FREESTYLE LITE TEST STRP, See Instructions, 3 refills furosemide 20 mg oral tablet, 20 mg= 1 tablet, By Mouth, Daily hydrochlorothiazide-lisinopril 25 mg-20 mg oral tablet, 1 tablet, By Mouth, Daily, 3 refills Lantus Solostar Pen 100 units/mL subcutaneous solution, See Instructions montelukast 10 mg oral tablet, 10 mg= 1 tablet, By Mouth, Daily, 3 refills Nasonex 50 mcg/inh nasal spray, 1 sprays, Nares, Both, Daily omeprazole 20 mg oral enteric coated capsule, 1 capsule, By Mouth, Daily Pen [place], 31 G x 5 mm BD Ultra Fine III, See Instructions, 3 refills sildenafil 100 mg oral tablet, 100 mg= 1 tablet, By Mouth, Daily tranexamic acid 650 mg oral tablet, 650 mg= 1 tablet, By Mouth, 3 times a day Vitamin D2 50,000 intl units (1.25 mg) oral capsule, 1 capsule, By Mouth, Every week Allergies shellfish??(hives) Other Food Allergy Social History Alcohol Use: Never. Electronic Cigarette/Vaping Electronic Cigarette Use: Never. 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 Exercise Regular exercise: Yes. Exercise duration: 20. Exercise frequency: 5-6 times/week. Exercise type: Walking. Home/Environment Living situation: Home/Independent. Lives with: Children, Spouse. Other: has 7 children. Nutrition/Health Diet: Regular. Sexual Gender identity: Identifies as male. Self described orientation: Straight or heterosexual. Preferred pronoun: He/him. Substance Abuse Use: Never. Tobacco Other: 20 packyear hx, quit 2006. Family History Asthma: Mother. CAD - Coronary artery disease: Father. Cancer of breast: Mat. Grandmother. Diabetes mellitus type II: Mother and Father. Hypertension: Father. Immunizations Vaccine Date Status influenza virus vaccine, inactivated - Not Given Comments : Parent Or Guardian Refuses influenza virus vaccine, inactivated 07/13/2022 Given SARS-CoV-2 (COVID-19) mRNA BNT-162b2 vac 09/13/2021 Recorded SARS-CoV-2 (COVID-19) mRNA BNT-162b2 vac 02/24/2021 Recorded SARS-CoV-2 (COVID-19) mRNA BNT-162b2 vac 02/03/2021 Recorded influenza virus vaccine, inactivated 07/10/2020 Recorded Comments : [id number] exp 03/09/2021 influenza virus vaccine, inactivated 05/27/2019 Given Comments : [facility] [id number] influenza virus vaccine, inactivated 06/17/2018 Given tetanus/diphtheria/pertussis, acel(Tdap) 08/20/2017 Given influenza virus vaccine, inactivated 06/18/2017 Given influenza virus vaccine, inactivated 06/20/2016 Given influenza virus vaccine, inactivated 11/22/2015 Given influenza virus vaccine, inactivated 10/31/2013 Given FluLaval (oldterm) 09/20/2012 Given Comments : vis date 03/11/2012 Tet/Diphth/Acel, Pertussis (oldterm) 08/30/2007 Given Pneumococcal Vaccine (oldterm) 12/07/2006 Given Comments : [id number] ?? [id number] * Randy Dominique MD: PERFORM Event Display: Consultation Note Authored Date: [id number] I have discussed the case and its management with the fellow and agree with the findings and plan as documented in the fellow???s note.? Note * Frieda Somers RN: PERFORM Event Display: Discharge/Transfer Note Hospital Authored Date: [id number] Nursing Discharge Note Entered On: 09/22/2023 16:11 EST Performed On: 09/22/2023 16:11 EST by Frieda Somers RN Nursing Discharge Note 2 Discharge Time : 09/22/2023 16:11 EST Discharge Level of Care at Discharge : Home/Shelter/Foster Care Discharge [employer](v[employer] : [employer] Patient Left Unit Via : Wheelchair Patient Accompanied Off Unit with : Significant other DC Instructions Provided & Signed by Pt : Yes Patient Understands D/C Instructions : Yes Patient Instructions Discharge Signed : Yes Did Pt have Specialty Bed or Wound Vac : No Frieda Somers RN - 09/22/2023 16:11 EST * Ivett Millard MD: MODIFY, MODIFY, PERFORM, MODIFY Event Display: Discharge/Transfer Note Hospital Authored Date: [id number] Patient: ??AMEE VEGA ? Age:??53 Years?Sex:??Male?:??1970?? Patient Information Discharge Location: Primary Care Physician: Marques Rowe NP Admit Date/Time: 09/15/23 18:03 Discharge date : 09/22/23 Discharge Disposition Discharge Disposition: Home with Home Health Discharge Diagnosis Acute hypoxic respiratory failure (J96.01) Asthma exacerbation (J45.901) Influenza A (J10.1) Shortness of breath (R06.02) Morbid Obesity (E66.01) ROULA (obstructive sleep apnea) (G47.33) Essential hypertension (I10) Hyperlipidemia (E78.5) Insulin dependent type 2 diabetes mellitus (E11.9) Seasonal allergic rhinitis (J30.2) Chronic GERD (K21.9) Vitamin D deficiency (E55.9) Multilevel degenerative disc disease (M53.9) Asthma (J45.909) Leukocytosis (D72.829) ?? _ Discharge Medications Albuterol (albuterol 0.083% inhalation solution)?3?Milliliter?2.5?Milligram?Inhalation?Every 6 hours?as needed?for wheezing/shortness of breath?for 90?Days Albuterol (albuterol CFC free 90 mcg/inh inhalation aerosol)?2?puff(s)?Inhalation?Every4 hours?as needed?for 30?Days?as needed for wheezing Amlodipine (amLODIPine 10 mg oral tablet)?1?tab(s)?10?Milligram?By Mouth?Daily Amoxicillin-Clavulanate (Augmentin 500 mg-125 mg oral tablet)?1?tab(s)?By Mouth?Every 8hours?for 3?Days Atorvastatin (atorvastatin 10 mg oral tablet)?1?tab(s)?By Mouth?Daily Azithromycin (azithromycin 250 mg oral tablet)?1?tab(s)?250?Milligram?By Mouth?Daily?for 3?Days Cetirizine (All Day Allergy 10 mg oral tablet)?1?tab(s)?By Mouth?Daily Dextromethorphan (Cough Relief 15 mg/5 mL oral syrup)?5?Milliliter?15?Milligram?By Mouth?Every 4 hours?as needed?for cough Durable Medical Equipment (Pen [place], 31 G x 5 mm BD Ultra Fine III)?See Instructions?for 90?Days?use once daily as for Type 2 Diabetes Mellitus Durable Medical Equipment (FreeStyle August 2 Monitor)?See Instructions?Use to check blood glucose 4 times daily for diabetes. E11.9 Durable Medical Equipment (FreeStyle August 2 Sensors)?See Instructions?Use to check blood glucose 4 times daily for diabetes. E11.9 empagliflozin (empagliflozin 25 mg oral tablet)?1?tab(s)?25?Milligram?By Mouth?Daily in AM Ergocalciferol (Vitamin D2 50,000 intl units (1.25 mg) oral capsule)?1?capsule?By Mouth?Every week Fluticasone-Salmeterol (Advair Diskus 500 mcg-50 mcg inhalation powder)?1?puff(s)?Inhalation?2 times a day Furosemide (furosemide 20 mg oral tablet)?20?Milligram?1?tablet?By Mouth?Daily Hydrochlorothiazide-Lisinopril (hydrochlorothiazide-lisinopril 25 mg-20 mg oral tablet)?1?tab(s)?By Mouth?Daily Insulin Glargine (Lantus Solostar Pen 100 units/mL subcutaneous solution)?See Instructions?INJECT 24 UNITS SUBCUTANEOUSLY ONCE DAILY AT BEDTIME Miscellaneous Rx (FREESTYLE LANCETS ?? MISC)?See Instructions?use to check blood sugar for diabetes 4x daily. E11.9 Miscellaneous Rx (FREESTYLE LITE TEST STRP)?See Instructions?use to check blood sugar for diabetes 4x daily. E11.9 Mometasone Nasal (Nasonex 50 mcg/inh nasal spray)?1?spray(s)?Nares, Both?Daily Montelukast (montelukast 10 mg oral tablet)?10?Milligram?1?tablet?By Mouth?Daily?for 90?Days Omeprazole (omeprazole 20 mg oral enteric coated capsule)?1?capsule?By Mouth?Daily Sildenafil (sildenafil 100 mg oral tablet)?1?tab(s)?100?Milligram?By Mouth?Daily?1 hour before sexual activity ? Medications Started Amoxicillin-Clavulanate (Augmentin 500 mg-125 mg oral tablet)?1?tab(s)?By Mouth?Every 8hours?for 3?Days Azithromycin (azithromycin 250 mg oral tablet)?1?tab(s)?250?Milligram?By Mouth?Daily?for 3?Days Dextromethorphan (Cough Relief 15 mg/5 mL oral syrup)?5?Milliliter?15?Milligram?By Mouth?Every 4 hours?as needed?for cough Medications Discontinued N/A Doses Changed Insulin lantus 32units at bedtime PCP Follow-Up/Heads-Up Patient was admitted with hypoxia??in the setting of asthma exacerbation??possibly from upper respiratory tract infection due to influenza A.?? Patient was managed with??inhalers, and prednisone.?? Antibiotics were also started, and??with concerns of??pneumonia during hospitalization. ?? Acute hypoxic respiratory failure/asthma exacerbation/influenza A/? ??Community- acquired pneumonia-patient was stable on 3 L nasal cannula after management of??asthma exacerbation with steroids and inhalers. ??However secondary to patient requiring up to 5 L of nasal cannula with increased cough and sputum production and tachycardia. ??Therefore chest x-ray was obtained with concerns for pneumonia and started on IV ceftriaxone and azithromycin.??Discharging the patient on azithromycin and??Augmentin,??please follow-up with the patient outpatient for monitoring. ??Also, his new baseline is 3 Lof oxygen at home for which??he has been sent with prescription.?? Advised him about complaints on C PAP for ROULA, kindly assess and reevaluate ?? Type 2 diabetes mellitus-patient's blood glucose levels in the hospital were persistently elevated.?? This probably is in the setting of prednisone use.?? NPH??was administered along with prednisone for tighter blood glucose control.?? Endocrinology recommended the same insulin home regimen as previous.?? Please follow-up with the patient??to track his glucose levels and then discuss dosing accordingly. ??Also endocrine requested an outpatient follow-up. Future Appointments Sunday 2:00 PM EST ?? With: Timmy ADAME, Silvia Pickett Where: [facility] [address] [place] [address]- Status: Pending Hospital Course Amee is a 53 y/o male with past medical history of morbid obesity, ROULA non-compliant with CPAP, essential hypertension, hyperlipidemia, T2DM, seasonal allergic rhinitis, moderate persistent asthma, GERD, vitamin D deficiency, degenerative joint disease admitted on 09/15/23 for acute hypoxic respiratory failure in the setting of asthma exacerbation secondary to influenza A. Patient's hospital course has been complicated by episodes of hyperglycemia in the setting of steroid use; he was started on 125 mg IV methylprednisolone on 09/15/23, 180 mg IV methylprednisolone on 09/16/23, and transitioned to 40 mg prednisone PO on 09/17/23. 30 units NPH 1 hour were administered??prior to prednisone administration according to??BIDs recommendations to optimize glucose control. Due to increasedoxygen demand to 5L NC, intermittent tachycardia, and increased immobility, there was low concern for DVT, so D-dimer was obtained on 09/20. D-dimer was low, ruling out DVT. Portable CXR was obtainedon 09/20 to assess for pulmonary or cardiac findings, which showed possible right sided pleural effusion and increased congestion compared to admission CXR on 09/15 on my read, however radiology final report indicated decrease in volumes with bronchovascular crowding versus mild pulmonary vascular congestion, with no sizeable pleural effusion. Started 1 gm ceftriaxone and 500 mg Azithromycin on 09/20 to cover CAP, and will continue 1 gm ceftriaxone today and 250 mg Azithromycin daily. Due to possible right sided pleural effusion, pulmonary congestion, and fluid overload, giving 20 mg IV Lasix??was given on 09/21/2023. ??Over the night,??patient needed??3 L of oxygen via nasal cannula??only??which looks to be his??new baseline.?? Also, on examination on 09/22/2023 patient is much more comfortable??and hemodynamically stable??and therefore??discharged home on oral??Augmentin 875 mg twice daily for 3 days and??azithromycin??250 mg for 3 days??daily. ?? Acute hypoxic respiratory failure (J96.01):?? Asthma exacerbation (J45.901):?? Asthma (J45.909):?? Influenza A (J10.1):?? Leukocytosis (D72.829):?? Shortness of breath (R06.02): Concerns for community-acquired pneumonia ? Up trending leukocytosis likely secondary to daily prednisone. However, with continued uptrend, could be due to pneumonia or underlying infection. Possible strep pneumo considering darker sputum production. Patient remains afebrile. NT-ProNP WNL, with level at 48 reassuring against heart failure, however level may be impacted by high BMI PT consult recommended home with services and Pulm rehab recommends 3 LPM??on dc D-Dimer level low, ruling out PE CXR from 09/20, official radiology read: interval decreasing lung volumes with bronchovascular crowding versus mild pulmonary congestion. No sizable pleural effusion. No pneumothorax. ?? Recs: -Amoxicillin 875 mg twice daily for 3 days -Azithromycin 250 mg daily for 3 days -3 L of O2 at home -Outpatient evaluation??for management of??ROULA -Cough syrup for occasional cough -Very low concern for??volume overload/heart failure exacerbation. ??Therefore outpatient follow-upwith cardiology??and a possible echo. ?? Insulin dependent type 2 diabetes mellitus (E11.9):?? Poorly controlled T2DM, last A1c reported in 06/02 of 10.9, and Lantus was increased from 20 units to 24 units. Self reported home glucose levels range from 180 - 400. Blood sugars ranging between 176-341mg/dL in the past 24 hours, with FBS this morning 176mg/dL [id number]/dL yesterday. Received a total of 35U Lantus, 30 units NPH, and 34U of Humalog in the past 24hours ?? Recs: -Insulin glargine increased to 32 units daily at bedtime -Outpatient follow-up with PCP/endocrinology ?? Morbid Obesity (E66.01):?? ROULA (obstructive sleep apnea) (G47.33):? Recommendations:??Please use your CPAP at home ?? Essential hypertension (I10):? Recs: - Continue amlodipine 10 mg, hydrochlorothiazide/lisinopril (25-20 mg). - Continue home Lasix 20 mg ?? Hyperlipidemia (E78.5):??-Continue atorvastatin 10 mg Seasonal allergic rhinitis (J30.2):??- Resumed 10 mg cetirizine Chronic GERD (K21.9):??- Continue pantoprazole 20 mg Vitamin D deficiency (E55.9):??-Once weekly vitamin D2 50,000 units every Sunday Multilevel degenerative disc disease (M53.9):??-PRN Tylenol Objective Vital Signs?? Temperature: 97.2 DegF (09/22/23 05:17:00) Temperature Route: Oral (09/22/23 05:17:00) Pulse Rate:??101 bpm??High (09/22/23 05:17:00) Respiratory Rate: 20 br/min (09/22/23 05:17:00) Systolic Blood Pressure: 118 mm Hg (09/22/23 09:22:00) Diastolic Blood Pressure: 65 mm Hg (09/22/23 09:22:00) Blood pressure sites: Arm, left (09/22/23 05:17:00) Mean Arterial Pressure: 88 mm Hg (09/22/23 05:17:00) Pulse Pressure: 60 mm Hg (09/22/23 05:17:00) Oxygen Saturation: 96 % (09/22/23 05:17:00) Liters per Minute: 3 L/min (09/22/23 05:17:00) Mode of Delivery (Oxygen): Nasal cannula (09/22/23 05:17:00) Early Warning Score: 6 (09/22/23 10:15:19) ? . Physical Exam General Appearance: The patient appears alert and not in acute distress. Obese habitus. On 5L NC. HEET:??EOMI. CHLOE. No scleral icterus. Neck supple. Respiratory: No wheezes. No crackles.?? Cardiovascular: RRR S1 S2. No murmurs, rubs or gallops. Gastrointestinal: Abdomen soft, non-tender, non-distended. Normal bowel sounds. No pulsatile mass. No hepatosplenomegaly. Neurologic: No focal neurological deficits.??Moves all extremities spontaneously.?? Skin: No rashes or lesions. No petechiae or purpura. Skin intact, warm, and dry Musculoskeletal: No cyanosis or clubbing. No gross deformities. Normal range of motion.??No edema of lower extremities. Psychiatric: Normal mood and affect. Alert and oriented x3 Consultants Randy Dominique MD - Endocrinology Patient Education Titles Influenza (Adult)?? Azithromycin Oral Tablet?? Amoxicillin/Clavulanate Oral Tablet?? Follow-Up Appointments Added Follow Up ?Time Frame ?Comments Prescription has been sent to pharmacy in [facility]?1 to 2 weeks Patient Instructions You presented with??low oxygen levels in the setting of??your asthma getting worse probably from aninfluenza A infection.?? You were started on inhalers and??steroids, and to put on oxygen. ??You are getting better, however certainly??on 09/20/2023 you were needing more oxygen??and also had increased cough and sputum. ??Therefore,??we obtained a chest x-ray??and we were concerned that he might have a??infection on your lungs. ??Therefore we started you on antibiotics.?? At home, please continueto take the antibiotics Augmentin 875 mg??twice daily for 3 days and azithromycin 250 mg daily for 3 days??to complete the course.?? Also,??as per??evaluation for your oxygen requirement she will need to be on 3 L of oxygen at home consistently??and we are sending you prescriptions for the same.?? Please follow-up with your PCP??given that this is a new requirement??and also I would advise you touse your CPAP machine given that?? could control your ROULA. ??Also,??your blood glucose levels were a little??high.?? That is probably because of giving steroids while in the hospital. ??Endocrine doctors followed you??and suggest that you take increased Lantus as below.?Also the suggested that you will follow-up with your PCP or the??them as an outpatient basis to??titrate/monitor your blood glucose levels.?? Please follow-up with them as needed. ?? Medications Started Amoxicillin-Clavulanate (Augmentin 500 mg-125 mg oral tablet)?1?tab(s)?By Mouth?Every 8hours?for 3?Days Azithromycin (azithromycin 250 mg oral tablet)?1?tab(s)?250?Milligram?By Mouth?Daily?for 3?Days Dextromethorphan (Cough Relief 15 mg/5 mL oral syrup)?5?Milliliter?15?Milligram?By Mouth?Every 4 hours?as needed?for cough Medications Discontinued N/A Doses Changed Insulin lantus 32units at bedtime Home Health Face to Face *Denotes mandatory mckeon ?? *I certify that this patient is under my care and that I or an allowed non- physician working with me had a face to face encounter with the patient on this date:??09/22/2023 10:48 ?? 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 *Select the indications for the discipline/s that are being arranged for this patient. Nursing (select all that apply): [_] None [_] Medication management (reconciliation, teaching)?? [xx_] Chronic disease management?? [_] Wound care and treatment?? [_] Home safety evaluation [_] Administer SQ/IM/IV medications?? [_] Cath care?? [_] Drain care?? [_] Trach or GT care?? Other _ Occupation Therapy (select all that apply): [_] None [_] ADL Management [_] Fall prevention training [_] Energy conservation [_] Cognitive training Other _ Physical Therapy (select all that apply): [_] None [xx_] Functional mobility training [xx_] Home exercise program to strengthen [xx_] Increase ROM?? [_] Falls prevention training [_] Home maintenance program for chronic disease Other _ Speech Therapy (select all that apply): [_] None [_] Swallow evaluation and training [_] Speech and language training [_] Cognitive training to process, organize, and/or recall information Other _ ? *Homebound due to (select all that apply): [_] Inability to leave home without assistance/supervision [_] Inability to ambulate without assistance [_] Pain [xx_] Decreased strength and endurance [_] Unsteady gait [_] Severe SOB and fatigue [_] Impaired transfers [_] Inability to negotiate stairs [_] Limited weight bearing [_] Mental status change? *Physician Signature: Ivett Millard MD_ ?? *By signing this, I certify that I have personally evaluated the patient and agree with the findings and recommendations as documented above. ? TF Results Discharge Labs BLOOD COUNT & DIFF WBC 16.4 k/mm3 (High)?? 09/22/2023 08:32 RBC 4.92 m/mm3 ()?? 09/22/2023 08:32 Hgb 14.6 Gm/dL ()?? 09/22/2023 08:32 Hct 44.2 % ()?? 09/22/2023 08:32 MCV 89.8 femtoliters ()?? 09/22/2023 08:32 MCH 29.7 pg ()?? 09/22/2023 08:32 MCHC 33.0 g/dL ()?? 09/22/2023 08:32 Platelet Count 244 k/mm3 ()?? 09/22/2023 08:32 RDW-SD 39.6 femtoliters ()?? 09/22/2023 08:32 MPV 11.5 femtoliters ()?? 09/22/2023 08:32 Nucleated RBC (Automated) 0.0 #/100 WBC'S ()?? 09/22/2023 08:32 Abs. NRBC 0.0 k/mm3 ()?? 09/22/2023 08:32 Abs. Neut 13.9 k/mm3 (High)?? 09/21/2023 01:51 Abs. Lymph 2.7 k/mm3 ()?? 09/21/2023 01:51 Abs. [place] 1.1 k/mm3 ()?? 09/21/2023 01:51 Abs. Eo 0.1 k/mm3 ()?? 09/21/2023 01:51 Abs. Baso 0.1 k/mm3 ()?? 09/21/2023 01:51 Neut % 77.1 % (High)?? 09/21/2023 01:51 Lymph % 15.0 % ()?? 09/21/2023 01:51 [place] % 6.3 % ()?? 09/21/2023 01:51 Eos % 0.5 % ()?? 09/21/2023 01:51 Baso % 0.4 % ()?? 09/21/2023 01:51 Imm Gran 0.7 % ()?? 09/21/2023 01:51 Abs. Imm Gran 0.1 k/mm3 ()?? 09/21/2023 01:51 ?? CARDIAC Nt-Probnp 61 pg/mL ()?? 09/20/2023 02:05 High Sensitivity Troponin (HSTnT) 12 ng/L ()?? 09/16/2023 06:06 ?? CHEM GENERAL Sodium 139 mmol/L ()?? 09/22/2023 08:32 Potassium 3.7 mmol/L ()?? 09/22/2023 08:32 Chloride 97 mmol/L (Low)?? 09/22/2023 08:32 Bicarbonate Level 26 mmol/L ()?? 09/22/2023 08:32 Anion Gap 16 ()?? 09/22/2023 08:32 Glucose Level 204 mg/dL (High)?? 09/22/2023 08:32 Glucose, POC 235 mg/dL (High)?? 09/22/2023 08:23 Hemoglobin A1C (Monitoring) 9.1 % (High)?? 09/18/2023 02:03 BUN 26 mg/dL (High)?? 09/22/2023 08:32 Creatinine-Blood 1.1 mg/dL ()?? 09/22/2023 08:32 Estimated GFR Creatinine 82 ML/MIN/1.73 M2 ()?? 09/22/2023 08:32 Calcium 9.2 mg/dL ()?? 09/22/2023 08:32 Phosphorus 3.8 mg/dL ()?? 09/21/2023 01:52 Magnesium 2.5 mg/dL (High)?? 09/21/2023 01:52 ?? COAG D-Dimer 0.37 mg/L FEU ()?? 09/20/2023 09:29 ? HEME OTHER Hold Lavender Top SPECIMEN DISCARDED AFTER 24 HOURS. ()?? 09/15/2023 14:42 Hold Blue Top SPECIMEN DISCARDED AFTER 4 HOURS. ()?? 09/15/2023 14:42 ?? MISC. CHEMISTRY Procalcitonin 0.13 ng/mL ()?? 09/20/2023 02:05 Hold Gel Top SPECIMEN DISCARDED AFTER 1 WEEK ()?? 09/15/2023 14:42 Hold Hodge Top SPECIMEN DISCARDED AFTER 1 WEEK ()?? 09/15/2023 14:42 ? URINE OTHER Est Creatinine Clearance 83.40 mL/min ()?? 09/20/2023 03:15 ? VIROLOGY Influenza A PCR POSITIVE (Abnormal)?? 09/15/2023 13:41 Influenza B PCR NEGATIVE ()?? 09/15/2023 13:41 RSV PCR NEGATIVE ()?? 09/15/2023 13:41 COVID-19 PCR Specimen Source NASAL ()?? 09/15/2023 13:41 COVID-19 PCR Result NEGATIVE ()?? 09/15/2023 13:41 ? Imaging(s) ?Chest 2 Views Frontal and Lat ?? 09/15/2023 12:24??by Christiane Garay MD ?IMPRESSION: ?? No focal consolidation or pleural effusion. ? Patient seen and discussed with Dr. Joey Millard MD Internal Medicine PGY1 Pager?? [phone] 45_ minutes spent on discharge * Christiane Willis RN: PERFORM Event Display: Patient Education/Instruction Authored Date: [id number] Inpatient Adult Discharge Instructions [address] [id number] Name: AMEE VEGA : 1970 Visit: 09/15/2023 18:03:00 Current Date: 09/22/2023 11:12 Account: [id number] Inpatient Adult Discharge Instructions We would like to thank you for allowing us to assist you with your healthcare needs. The following includes patient education materials and information regarding your injury/illness. Our entire staffstrives to provide an excellent experience for our patients and their families. PLEASE ENSURE YOU FOLLOW-UP PER THE INSTRUCTIONS BELOW! ?? YOUR OPINION IS IMPORTANT TO US! Please complete the survey you may receive by mail or email. Your feedback will be used to make improvements to the healthcare experiences of our patients and their families. Surveys are administered by [employer] ?? If further treatment with your primary care physician or another doctor is recommended, it is important for you to keep the appointment. Call your primary care physician or return to the Emergency Department immediately if your condition worsens, fails to improve, or new symptoms develop. If you need to find a doctor, you can call [facility] Link for a referral at [phone] or toll free at [phone]) or log in to [email or web address].. ?? [facility], in keeping with [facility] guidance, no longer requires face masks for staff, patientsor visitors in most situations. Similiar to time spent indoors at other locations, there is the chance that you were exposed to repiratory viruses during your time with us (such as flu or COVID-19). If you develop symptoms concerning for a viral respiratory infection, please seek testing (and treatment if indicated) from your medical provider or home test kit. ?? You can view and manage your care through the patient portal or by using a health care kosta of your choosing. Friday is a website that allows you to securely view your medical information including your hospital discharge summary, office visit summaries, medications and follow-up visits. You can also request appointments, renew medications, and request access to your medical information using a health care kosta of your choosing, or just ask a question. You can enroll at [email or web address] or register during your next office visit. You have been discharged from [facility], Patient Care Unit: S2. If you have any questions regarding these instructions after you leave, please call us and we will be happy to assist you. [facility] Your Care Team Attending Physician Hugo Cook MD Consulting Providers Randy Dominique MD Discharging Providers Hugo Cook MD Reason for Admission Hx of asthma. P/w 1.5 wks SOB, wheezing. tested flu + on Sunday. Finished PO steroid taper , w/o sxs improvement. . No CP/LE edema. No fevers or chills. Your Diagnosis Asthma Acute hypoxic respiratory failure Asthma exacerbation Influenza A Shortness of breath Morbid Obesity ROULA (obstructive sleep apnea) Essential hypertension Hyperlipidemia Insulin dependent type 2 diabetes mellitus Seasonal allergic rhinitis Chronic GERD Vitamin D deficiency Multilevel degenerative disc disease Leukocytosis Tests Performed Below is a partial list of the tests performed during your hospitalization. You may have had other tests and procedures not included in this list. Please discuss all test results with your provider. Basic Metabolic Panel BUN CBC CBC w/ Differential COVID-19, RSV, and Flu A/B, Rapid PCR Creatinine D Dimer DIFFERENTIAL Electrolytes Glucose Level GLUCOSE POC HEMOGLOBIN A1C High??Sensitivity??Troponin T HOLD BLUE TUBE HOLD GEL TUBE HOLD HODGE TUBE HOLD LAVENDER TUBE Magnesium Level Phosphorus Level PROBNP PROCALCITONIN, SERUM Troponin T, High Sensitivity CXR Portable XR Chest 2 Views Frontal and Lat Primary Care Provider Marques Rowe NP Advance Directive Health Care Proxy on File Yes - Health Care Proxy Discharge Vitals Temperature: 97.2 DegF Height: 183 cm Pulse Rate:??102 bpm??High Weight: 179.2 kg Respiratory Rate: 18 br/min Body Mass Index:??53.51 kg/m2??Critical Systolic Blood Pressure: 110 mm Hg Body surface area: 3.02 Diastolic Blood Pressure: 65 mm Hg ?? Oxygen Saturation: 95 % ?? Studies Pending All tests and labs ordered during this hospital stay have been completed unless listed below. Please discuss all pending results with your provider listed above in these instructions. ?? Add On Lab Order Sputum Culture w/ Gram Smear Strep Pneumoniae Urinary Ag What to do next Instructions From Your Doctor Discharge Orders Scheduled Follow-Up Appointments Sunday 2:00 PM EST ?? With: Timmy ADAME, Silvia Pickett Where: [facility] [address] [address]- Status: Pending You Need to Schedule the Following Appointments Follow Up with??Prescription has been sent to pharmacy in [facility] Follow Up with??Marques Rowe When:??Within 1 to 2 weeks Where: [address] [facility] [place] [address]- Business (1) ?? [address] [place] [address]- Business (1) ?? [address] [place] [address]- Business (1) Discharge Medications AMEE VEGA :1970 Visit Date:09/15/2023 Medications: Please continue your medications until treatment is completed or stopped by your provider. Medications not listed below should be discontinued. Discuss any questions related to medications with your provider. What How Much When Why Instructions Next Dose New Amoxicillin-Clavulanate (Augmentin 500 mg-125 mg oral tablet) 1 tab(s) Oral Every 8 hours Duration: 3 Days Pickup at [place] [address] 09/22, 5 pm New Azithromycin (azithromycin 250 mg oral tablet) 1 tab(s) Oral Daily Duration: 3 Days Pickup at [place] [address] 09/23, 9 am New Dextromethorphan (Cough Relief 15 mg/ 5 mL oral syrup) 5 Milliliter Oral Every 4 hours as needed for for cough Refills: 1 Pickup at [place] [address] ?? As Needed Changed Insulin Glargine (Lantus Solostar Pen 100 units/ mL subcutaneous solution) See instructions INJECT 24 UNITS SUBCUTANEOUSLY ONCE DAILY AT BEDTIME ?? Pickup at [place] [address] 09/22, 9 pm Changed empagliflozin (empagliflozin 25 mg oral tablet) 1 tab(s) Oral Daily in the morning Pickup at [place] [address] 09/23, 9 am Unchanged Albuterol (albuterol 0.083% inhalation solution) 3 Milliliter Inhalation Every 6 hours as needed for for wheezing/shortness of breath Duration: 90 Days Pickup at [place] [address] As Needed Unchanged Albuterol (albuterol CFC free 90 mcg/ inh inhalation aerosol) 2 puff(s) Inhalation Every 4 hours as needed for as needed for wheezing Asthma, moderate persistant Duration: 30 Days Pickup at [place] [address] As Needed Unchanged Amlodipine (amLODIPine 10 mg oral tablet) 1 tab(s) Oral Daily Pickup at [place] [address] 09/23, 9 am Unchanged Atorvastatin (atorvastatin 10 mg oral tablet) 1 tab(s) Oral Daily Pickup at [place] [address] 09/23, 9 am Unchanged Cetirizine (All Day Allergy 10 mg oral tablet) 1 tab(s) Oral Daily 09/23, 9 am Unchanged Durable Medical Equipment (FreeStyle August 2 Monitor) See instructions Diabetes mellitus Use to check blood glucose 4 times daily for diabetes. E11.9 ?? n/a Unchanged Durable Medical Equipment (FreeStyle August 2 Sensors) See instructions Diabetes mellitus Use to check blood glucose 4 times daily for diabetes. E11.9 ?? n/a Unchanged Durable Medical Equipment (Pen [place], 31 G x 5 mm BD Ultra Fine III) See instructions Diabetes mellitus Duration: 90 Days use once daily as for Type 2 Diabetes Mellitus ?? n/a Unchanged Ergocalciferol (Vitamin D2 50,000 intl units (1.25 mg) oral capsule) 1 capsule Oral Every week Resume Schedule Unchanged Fluticasone-Salmeterol (Advair Diskus 500 mcg-50 mcg inhalation powder) 1 puff(s) Inhalation Twice a day Pickup at [place] [address] 09/22, 9 pm Unchanged Furosemide (furosemide 20 mg oral tablet) 1 tab(s) Oral Daily Pickup at [place] [address] 09/23, 9 am Unchanged Hydrochlorothiazide-Lisinopril (hydrochlorothiazide-lisinopril 25 mg- 20 mg oral tablet) 1 tab(s) Oral Daily Pickup at [place] [address] 09/23, 9 am Unchanged Miscellaneous Rx (FREESTYLE LANCETS MISC) See instructions Diabetes mellitus use to check blood sugar for diabetes 4x daily. E11.9 ?? n/a Unchanged Miscellaneous Rx (FREESTYLE LITE TEST STRP) See instructions Diabetes mellitus use to check blood sugar for diabetes 4x daily. E11.9 ?? n/a Unchanged Mometasone Nasal (Nasonex 50 mcg/ inh nasal spray) 1 spray(s) Nares, Both Daily 09/23, 9 am Unchanged Montelukast (montelukast 10 mg oral tablet) 1 tab(s) Oral Daily Duration: 90 Days Pickup at [place] [address] 09/23, 9 am Unchanged Omeprazole (omeprazole 20 mg oral enteric coated capsule) 1 capsule Oral Daily Pickup at [place] [address] 09/23, 9 am Unchanged Sildenafil (sildenafil 100 mg oral tablet) 1 tab(s) Oral Daily 1 hour before sexual activity ?? 09/23, 9 am Pharmacy Information [facility] 3: [address] [place] [address] [phone] ?? What How Much When Comments Stop Taking Metformin (metFORMIN 1000 mg oral tablet) 1 tab(s) Oral Twice a day Duration: 90 Days Stop Taking PredniSONE (predniSONE 10 mg oral tablet) See instructions take 4 tabs PO day 1-3, take 3 tabs PO day 4-6, take 2 tabs PO day 7-9, take 1 tab PO day 10-12 ?? Stop Taking Tranexamic Acid (tranexamic acid 650 mg oral tablet) 1 tab(s) Oral 3 times a day Duration: 6 Days Test Results Below is a partial list of the most recent Laboratory test results done prior to this discharge. You may have had other tests and procedures not included in this list. Please discuss all test resultswith your provider. Est Creatinine Clearance - 83.40 mL/min (09/20/2023) Basic Metabolic Panel (09/22/2023) ???Sodium - 139 mmol/L???Potassium - 3.7 mmol/L???Chloride - 97 mmol/L???Bicarbonate Level - 26 mmol/L???Anion Gap - 16???Glucose Level - 204 mg/dL???BUN - 26 mg/dL???Creatinine-Blood - 1.1 mg/dL???Estimated GFR Creatinine - 82 ML/MIN/1.73 M2???Calcium - 9.2 mg/dL BUN (09/18/2023) ???BUN - 25 mg/dL CBC (09/22/2023) ???WBC - 16.4 k/mm3???RBC - 4.92 m/mm3???Hgb - 14.6 Gm/dL???Hct - 44.2 %???MCV - 89.8 femtoliters???MCH - 29.7 pg???MCHC - 33.0 g/dL???Platelet Count - 244 k/mm3???RDW-SD - 39.6 femtoliters???MPV - 11.5 femtoliters???Nucleated RBC (Automated) - 0.0 #/100 WBC'S???Abs. NRBC - 0.0 k/mm3 CBC w/ Differential (09/18/2023) ???WBC - 11.8 k/mm3???RBC - 4.82 m/mm3???Hgb - 14.1 Gm/dL???Hct - 43.9 %???MCV - 91.1 femtoliters???MCH - 29.3 pg???MCHC - 32.1 g/dL???Platelet Count - 226 k/mm3???RDW-SD - 39.8 femtoliters???MPV - 11.4 femtoliters???Nucleated RBC (Automated) - 0.0 #/100 WBC'S???Abs. NRBC - 0.0 k/mm3???Abs. Neut - 8.1 k/mm3???Abs. Lymph - 2.6 k/mm3???Abs. [place] - 0.9 k/mm3???Abs. Eo - 0.0 k/mm3???Abs. Baso - 0.0 k/mm3???Neut % - 69.1 %???Lymph % - 22.4 %???B[place] % - 7.7 %???Eos % - 0.1 %???Baso % - 0.3 %???Imm Gran - 0.4 %???Abs. Imm Gran - 0.1 k/mm3 COVID-19, RSV, and Flu A/B, Rapid PCR (09/15/2023) ???Influenza A PCR - POSITIVE???Influenza B PCR - NEGATIVE???RSV PCR - NEGATIVE???COVID-19 PCR Specimen Source - NASAL???COVID-19 PCR Result - NEGATIVE Creatinine (09/18/2023) ???Creatinine-Blood - 1.1 mg/dL???Estimated GFR Creatinine - 83 ML/MIN/1.73 M2 D Dimer (09/20/2023) ???D-Dimer - 0.37 mg/L FEU DIFFERENTIAL (09/21/2023) ???Abs. Neut - 13.9 k/mm3???Abs. Lymph - 2.7 k/mm3???Abs. [place] - 1.1 k/mm3???Abs. Eo - 0.1 k/mm3???Abs. Baso - 0.1 k/mm3???Neut % - 77.1 %???Lymph % - 15.0 %???B[place] % - 6.3 %???Eos % - 0.5 %???Baso %- 0.4 %???Imm Gran - 0.7 %???Abs. Imm Gran - 0.1 k/mm3 Electrolytes (09/18/2023) ???Sodium - 135 mmol/L???Potassium - 4.1 mmol/L???Chloride - 97 mmol/L???Bicarbonate Level - 26 mmol/L???Anion Gap - 12 Glucose Level (09/18/2023) ???Glucose Level - 418 mg/dL GLUCOSE POC (09/22/2023) ???Glucose, POC - 235 mg/dL HEMOGLOBIN A1C (09/18/2023) ???Hemoglobin A1C (Monitoring) - 9.1 % High??Sensitivity??Troponin T (09/15/2023) ???High Sensitivity Troponin (HSTnT) - 18 ng/L HOLD BLUE TUBE (09/15/2023) ???Hold Blue Top - SPECIMEN DISCARDED AFTER 4 HOURS. HOLD GEL TUBE (09/15/2023) ???Hold Gel Top - SPECIMEN DISCARDED AFTER 1 WEEK HOLD HODGE TUBE (09/15/2023) ???Hold Hodge Top - SPECIMEN DISCARDED AFTER 1 WEEK HOLD LAVENDER TUBE (09/15/2023) ???Hold Lavender Top - SPECIMEN DISCARDED AFTER 24 HOURS. Magnesium Level (09/21/2023) ???Magnesium - 2.5 mg/dL Phosphorus Level (09/21/2023) ???Phosphorus - 3.8 mg/dL PROBNP (09/20/2023) ???Nt-Probnp - 61 pg/mL PROCALCITONIN, SERUM (09/20/2023) ???Procalcitonin - 0.13 ng/mL Troponin T, High Sensitivity (09/16/2023) ???High Sensitivity Troponin (HSTnT) - 12 ng/L Immunizations This Visit Not Given Vaccine Commentsinfluenza virus vaccine, inactivated Parent Or Guardian Refuses Allergies (NKA means No Known Allergies) shellfish??(hives) Other Food Allergy Problems Active Problems??(13) Acid reflux?? Asthma, moderate persistant?? Degenerative arthritis of knee, bilateral?? Diabetes mellitus?? HTN (hypertension)?? Hypercholesterolemia?? Morbid Obesity?? Prostatism?? Seasonal allergic rhinitis?? Severe obesity?? Sleep apnea?? Sleep Apnea?? Vitamin D deficiency?? Education Materials Below is the list of Educational Leaflet Providered with your Discharge Instructions. Influenza (Adult)?? Azithromycin Oral Tablet?? Amoxicillin/Clavulanate Oral Tablet?? Valuables and Belongings I fully understand and agree that [facility] accepts no responsibility for all my personal property including clothing, toilet articles, radios, jewelry, dentures, hearing aids, rings, money, or any other property that is in my possession or is brought to me after admission. I understand certain valuables may be placed in a hospital safe for a short period of time. I understand that the hospital is not liable for loss or damage due to accident, fire, or other natural occurrence while said property is in the safe. I accept full responsibility for any personal property that I keep with me, and will not hold the hospital responsible in case of loss or disappearance. I acknowledge that i have been encouraged to send valuables and belongings home. ?? No Valuables/Belongings: No valuables/belongings present Review of Valuable and Belonging List: With patient Date for Pt to Sign Valuables/Belongings: 09/18/23 21:58:00 ?? Other Discharge Information ? Case Management Discharge Plan?? Discharge Plan?? Discharge Medical Equipment [employer]: [employer] ?? Pulmonary Rehab Status?? Pulmonary Rehab Discharge Status?? Patient Going Home on Oxygen: Yes Portable unit required: Yes Oxygen Sat. Rm. Air: 86 % Oxygen Device used at Home: Nasal cannula Liter flow: 3 LPM Oxygen Use Duration: Continuous Respiratory Rate: 18 br/min Discharge Medical Equipment Companies: [employer] Home care instructions: Call company when you get home. Informational handouts: Oxygen Therapy ? Common Emergency Awareness Tips IS IT A STROKE? Act FAST and Check for these signs: FACE Does the face look uneven? ARM Does one arm drift down? SPEECH Does their speech sound strange? TIME Call at any sign of stroke ?? Heart Attack Signs Chest discomfort: Most heart attacks involve discomfort in the center of the chest and lasts more than a few minutes, or goes away and comes back. It can feel like uncomfortable pressure, squeezing, fullness or pain. Discomfort in upper body: Symptoms can include pain or discomfort in one or both arms, back, neck, jaw or stomach. Shortness of breath: With or without discomfort. Other signs: Breaking out in a cold sweat, nausea, or lightheaded. Remember, MINUTES DO MATTER. If you experience any of these heart attack warning signs, call to get immediate medical attention! ?? Smoking can increase your chances of developing chronic health problems and can cause harmful effects to other family members in your house. If you smoke, you are strongly encouraged to quit. Please call [facility] Link at [phone] or [phone] ([phone]) or log in to [email or web address] for referrals to smoking cessation programs. ?? 464 Suicide & Crisis Lifeline is available 02/04 if you or someone you know needs to find a reason to keep living. By calling 167 you'll be connected to a skilled, trained counselor at a crisis center in your area. INPATIENT DISCHARGE INSTRUCTIONS SIGNATURE PAGE BREANNA VEGAJIGNESHLIN Location:[facility] Registration Date and Time:09/15/2023 18:03 EST Primary Care Physician: Marques Rowe NP, Attending Physician: Carlos Manuel Cook MDhammad, I AMEE VEGA, have received the above patient education materials/instructions and have verbalized understanding. If ambulance or transport services are being used I further acknowledge being given a choice of service. ?? If you need to contact me, please call me at this number: . Patient/Exchange Trouble Shooter Name: Patient/Exchange Trouble Shooter Signature: Relationship to Patient: Witness Name/Signature: Date: * Hugo Cook MD: PERFORM, SIGN, VERIFY Event Display: Patient Education Handout Authored Date: * Hugo Cook MD: PERFORM Event Display: Patient Education Leaflets Authored Date: Influenza (Adult) ?? [id number] Influenza (Adult) Updated for the flu season Influenza is also called the flu. It's a viral illness that affects the air passages of your nose, sinuses, throat, and lungs. It's different from the common cold. The flu can easily be passed from one to person to another. It may be spread through the air by coughing and sneezing. It can also be spread by touching the sick person and then touching your own eyes, nose, or mouth. The flu starts 1 to 3 days after you are exposed to the flu virus. It may last??for 1 to 2 weeks but sometimes people feel tired or fatigued for many weeks afterward. You usually don???t need to takeantibiotics unless you are at high risk for or have a complication from a bacterial infection. Thismight be an ear or sinus infection or pneumonia. Flu symptoms may be mild or severe. They can include extreme tiredness (wanting to stay in bed all day), chills, fevers, muscle aches, soreness with eye movement, headache, and a dry, hacking cough. Antiviral medicine for the flu is available by prescription. If you start taking it within 48 hours, it may help reduce how long your symptoms last and how severe they are. Your provider may do a test to find out if you have influenza and which strain you have. Home care Follow these guidelines when caring for yourself at home: ??? Stay away from cigarette smoke, whether it's yours or other people???s. ??? Acetaminophen or ibuprofen will help ease your fever, muscle aches, and headache. Don???t give aspirin to anyone younger than 18 who has the flu. This can cause a serious condition called Arabella syndrome. ??? Nausea, loose stools, and loss of appetite are common with the flu. Eat light meals. Drink 6 to 8 glasses of liquids every day. Good choices are water, sport drinks, soft drinks without caffeine, juices, tea, and soup. Extra fluids will also help loosen secretions in your nose and lungs. ??? Fhzs-lsq-onwpiem cold medicines will not make the flu go awayfaster. But the medicines may help with coughing, sore throat, and congestion in your nose and sinuses. Don???t use a decongestant if you have high blood pressure. ??? Stay home until your fever has been gone for at least 24 hours without using medicine to reduce fever. ?? Follow-up care Follow up with your healthcare provider, or as advised, if you're not getting better over the next week. If you're age 65 or older, talk with your provider about getting a pneumococcal vaccine. You shouldalso get vaccinated against pneumococcal pneumoniae at other ages if you have a weak immune system,chronic asthma, COPD (chronic obstructive pulmonary disorder), or certain other conditions. With very few exceptions, all adults should get a flu vaccine every fall. May and June are generally good times to get vaccinated. Ask your provider about this. ?? When to get medical advice Call your healthcare provider right away if you have the flu and any of these occur: ??? Cough with lots of colored mucus (sputum) or blood in your mucus ??? Chest pain, shortness of breath, wheezing, or trouble breathing ??? Severe headache, or face, neck, or ear pain ??? New rash??with fever ??? Fever of 100.4??F (38??C)??or higher, or as??advised by your provider ??? Confusion, behavior change, or seizure ??? Severe weakness or dizziness ??? You get a new??fever or cough aftergetting better for a few days Also call your provider if you have flu symptoms and have a weakened immune system or are taking medicines that can weaken your immune system. These include steroids and certain anti-inflammatory medicines. ?? Last Reviewed Date: 2022 ?? [employer]. All rights reserved. This information is not intended as a substitute for professional medical care. Always follow your healthcare professional's instructions. ?? * Hugo Cook MD: PERFORM Event Display: Patient Education Leaflets Authored Date: [id number] Azithromycin Oral Tablet ?? [id number] Azithromycin Oral Tablet Brands: Zithromax Uses For treating bacterial infection. ?? Instructions You may take with food to prevent stomach upset. Keep the medicine at room temperature. Avoid heat and direct light. Do not take this medicine with antacids. If you forget to take a dose on time, take it as soon as you remember. If it is almost time for thenext dose, do not take the missed dose. Return to your normal schedule. Do not take 2 doses at one time. Drug interactions can change how medicines work or increase risk for side effects. Tell your healthcare providers about all medicines taken. Include prescription and jqey-lca-vmtgenj medicines, vitamins, and herbal medicines. Speak with your doctor or pharmacist before starting or stopping any medicine. Keep using this medicine for the full number of days that it is prescribed. Do not stop the medicine even if you start to feel better. ?? Cautions Tell your doctor and pharmacist if you ever had an allergic reaction to a medicine. Do not use the medication any more than instructed. Please tell your doctor if you have moderate to severe diarrhea while on this medicine. Do not treat the diarrhea with urtb-yln-lhqncyn diarrhea medicine. This medicine passes into breast milk. Ask your doctor before . During , this medicine should be used only when clearly needed. Talk to your doctor about the risks and benefits. Do not share this medicine with anyone who has not been prescribed this medicine. ?? Side Effects The following is a list of some common side effects from this medicine. Please speak with your doctor about what you should do if you experience these or other side effects. ??? diarrhea ??? nausea and vomiting ??? stomach upset or abdominal pain ??? yeast infection of mouth ??? vaginal itching or yeast infection Call your doctor or get medical help right away if you notice any of these more serious side effects: ??? severe, watery or bloody diarrhea ??? ear problems (ringing in the ears, hearing loss) ??? fainting ??? swelling in the neck or throat ??? fast or irregular heart beats ??? signs of liver damage (such as yellowing of eye or skin, dark urine, or unusual tiredness) ??? muscle weakness ??? red, burning, or itchy skin ??? severe stomach or bowel pain ??? blurring or changes of vision ??? severe or persistent vomiting A few people may have an allergic reaction to this medicine. Symptoms can include difficulty breathing, skin rash, itching, swelling, or severe dizziness. If you notice any of these symptoms, seek medical help quickly. ?? Extra Please speak with your doctor, nurse, or pharmacist if you have any questions about this medicine. ?? [email or web address] IMPORTANT NOTE: This document tells you briefly how to take your medicine, but it does not tell youall there is to know about it. Your doctor or pharmacist may give you other documents about your medicine. Please talk to them if you have any questions. Always follow their advice. There is a more complete description of this medicine available in [place]. Scan this code on your smartphone or tablet or use the web address below. You can also ask your pharmacist for a printout. If you have any questions, please ask your pharmacist. The display and use of this drug information is subject to Terms of Use. Copyright(c) 2022 [employer]. ?? [employer]. All rights reserved. This information is not intended as a substitute for professional medical care. Always follow your healthcare professional's instructions. ?? * Joey WOODY, Hugo: PERFORM Event Display: Patient Education Leaflets Authored Date: [id number] Amoxicillin/Clavulanate Oral Tablet ?? [id number] Amoxicillin/Clavulanate Oral Tablet Brands: Augmentin Uses This medicine is used for the following purposes: ??? infections caused by bacteria ??? urinary tract infections ?? Instructions Take the medicine with food. Keep the medicine at room temperature. Avoid heat and direct light. It is important that you keep taking each dose of this medicine on time even if you are feeling well. If you forget to take a dose on time, take it as soon as you remember. If it is almost time for thenext dose, do not take the missed dose. Return to your normal schedule. Do not take 2 doses at one time. Tell your doctor and pharmacist about all your medicines. Include prescription and vxgj-pap-jwxzqpdzshwmvfgd, vitamins, and herbal medicines. Keep using this medicine for the full number of days that it is prescribed. Do not stop the medicine even if you start to feel better. If you have diabetes and use urine glucose tests, this medicine may cause incorrect results. Pleasecheck with your doctor before making any changes to your diabetes treatment plan. ?? Cautions Tell your doctor and pharmacist if you ever had an allergic reaction to a medicine. Do not use the medication any more than instructed. Please tell your doctor if you have moderate to severe diarrhea while on this medicine. Do not treat the diarrhea with ltap-hqn-vghodwd diarrhea medicine. Tell the doctor or pharmacist if you are , planning to be , or . Do not start or stop any other medicines without first speaking to your doctor or pharmacist. Do not share this medicine with anyone who has not been prescribed this medicine. ?? Side Effects The following is a list of some common side effects from this medicine. Please speak with your doctor about what you should do if you experience these or other side effects. ??? diarrhea ??? nausea and vomiting ??? stomach upset or abdominal pain Call your doctor or get medical help right away if you notice any of these more serious side effects: ??? severe or persistent abdominal pain ??? severe, watery or bloody diarrhea ??? signs of liver damage (such as yellowing of eye or skin, dark urine, or unusual tiredness) ??? red, burning, or itchyskin ??? yeast infection of mouth ??? vaginal itching or discharge A few people may have an allergic reaction to this medicine. Symptoms can include difficulty breathing, skin rash, itching, swelling, or severe dizziness. If you notice any of these symptoms, seek medical help quickly. ?? Extra Please speak with your doctor, nurse, or pharmacist if you have any questions about this medicine. ?? [email or web address] IMPORTANT NOTE: This document tells you briefly how to take your medicine, but it does not tell youall there is to know about it. Your doctor or pharmacist may give you other documents about your medicine. Please talk to them if you have any questions. Always follow their advice. There is a more complete description of this medicine available in [place]. Scan this code on your smartphone or tablet or use the web address below. You can also ask your pharmacist for a printout. If you have any questions, please ask your pharmacist. The display and use of this drug information is subject to Terms of Use. Copyright(c) 2022 [employer]. ?? [employer]. All rights reserved. This information is not intended as a substitute for professional medical care. Always follow your healthcare professional's instructions. ?? * Elo CLARKE, Taya Jefferson: PERFORM Event Display: Discharge/Transfer Note Hospital Authored Date: [id number] Pulmonary Rehab Discharge Status Entered On: 09/18/2023 10:51 EST Performed On: 09/18/2023 10:50 EST by Taya Gasca RN Pulmonary Rehab Discharge Status Patient Going Home on Oxygen : Yes Portable unit required : Yes Oxygen Sat. Rm. Air : 86 % Oxygen Device used at Home : Nasal cannula Liter flow : 3 LPM Oxygen Use Duration : Continuous Discharge Medical Equ[employer] Companies([email or web address]) : Mitch Home care instructions : Call company when you get home. Informational handouts : Oxygen Therapy Taya Gasca RN - 09/18/2023 10:50 EST Patient Care team information Care Team Personnel Name: Alicja Manzanares RN Position: S RN Member Role: Primary Care Nurse Name: Sri Jacobo RN Position: S RN Member Role: Primary Care Nurse Name: Marques Rowe NP Position: [facility] PCO Associate Professional Member Role: PCP Address: Address: [address] [place] [address] [place] [address]- Name: Lola Fox RN Position: S RN Member Role: Primary Care Nurse Name: Malorie Salas RN Position: S RN Member Role: Primary Care Nurse Name: Shayla Frost RN Position: S RN Member Role: Primary Care Nurse Name: Sophia Crawford RN Position: [facility] RN Member Role: Primary Care Nurse Name: *Junito OBRIEN Attending Position: [facility] ED Medicine MD Name: Demetrio Farley RN Position: [facility] ED RN W/OE and Tasks Member Role: Patient Care Provider Name: Olena Henriquez RN Position: [facility] ED RN W/OE and Tasks Member Role: Patient Care Provider Name: Amaya Pike Position: [facility] ED TA [facility] Care Team Related Persons Name: JOMAR VEAG Address: home [address] [place] [address] Name: ASHLEIGH LAGOS Address: home [address] [place] [id number]
--- OUTSIDE RECORDS SUMMARY | 2024-02-15 09:59 | XMS_ITS | Continuity of Care Document ---
Author Organization [facility] Address [address] [place] [address] ve [address] [place] [address]- Care Team Providers Care Manager University Name Role Phone Cynthia Jerome MD Primary Care Physician [phone] Encounter [facility] Date(s): 08/06/19 - 10/22/[address] [place] [address]- [facility] Attending Physician: Rico Soriano MD Referring Physician: Rosario WOODY, Erin Allergies, Adverse Reactions, Alerts Substance Reaction Severity [...] Vaccine (oldterm) 3 12/07/06 Given 1Result Comment: [facility] [id number] 2Admin Note: vis date 03/11/2012 3Result Comment: [id number] Medications cetirizine 10 mg oral tablet See Instructions, # 90 tablet, Refills 4 Tot. Refills 4, TAKE ONE TABLET BY MOUTH EVERY NIGHT AT BEDTIME, [facility] Start Date: 4/30/19 Status: Ordered DuoNeb 3 mg-0.5 mg/3 ml inhalation solution 3 mL, Neb, 3 times a day, # 63 mL, 0 Refills, Maintenance, 01/04/17 18:58:49, Solution, 3 mL Neb 3 times a day,x7 days Start Date: 01/04/17 Stop Date: 01/11/17 Status: Ordered fluticasone 50 mcg/inh nasal spray See Instructions, # 16 Gm, Refills 5 Tot. Refills 5, USE 2 SPRAYS IN EACH NOSTRIL DAILY, [facility] Start Date: 01/07/19 Status: Ordered Problem List Condition Effective Dates [...]
--- OUTSIDE RECORDS SUMMARY | 2024-02-15 09:59 | XMS_ITS | Continuity of Care Document ---
Author Organization [facility] Address [address] [place] [address]- Care Team Providers Care Ux Developer Name Role Phone yCnthia Jerome MD Primary Care Physician [place] [facility] [place] 07/17/20 [facility] [address] [place] [address]- Attending Physician: Leo Shah MD Admitting Physician: Leo Shah MD Referring Physician: Leo Shah MD Allergies, Adverse Reactions, Alerts Substance Reaction [...] Vaccine (oldterm) 4 12/07/06 Given 1Result Comment: [id number] exp 03/09/2021 2Result Comment: [facility] [id number] 3Admin Note: vis date 03/11/2012 4Result Comment: [id number] Medications cetirizine 10 mg oral tablet See Instructions, # 90 tablet, Refills 4 Tot. Refills 4, TAKE ONE TABLET BY MOUTH EVERY NIGHT AT BEDTIME, [facility] Start Date: 01/07/19 Status: Ordered DuoNeb 3 mg-0.5 mg/3 ml inhalation solution 3 mL, Neb, 3 times a day, # 63 mL, 0 Refills, Maintenance, 01/04/17 18:58:49, Solution, 3 mL Neb 3 times a day,x7 days Start Date: 01/04/17 Stop Date: 01/11/17 Status: Ordered Problem List Condition Effective Dates [...]
--- OUTSIDE RECORDS SUMMARY | 2024-02-15 09:59 | XMS_ITS | Continuity of Care Document ---
Author Organization [facility] Address [address] [place] [address] Dr [address] [place] [address]- Care Team Providers Care Lap Checker Name Role Phone Rosario WOODY, Erin Primary Care Physician Encounter [facility] [place] Date(s): 09/22/19 - 10/02/[address] [place] [address]- [facility] Attending Physician: Shivani Laboy Admitting Physician: AdmShivani cesar Referring Physician: AdmtrShivani Allergies, Adverse Reactions, Alerts [...] Vaccine (oldterm) 3 12/07/06 Given 1Result Comment: [facility] [id number] 2Admin Note: vis date 03/11/2012 3Result Comment: [id number] Medications cetirizine 10 mg oral tablet See Instructions, # 90 tablet, Refills 4 Tot. Refills 4, TAKE ONE TABLET BY MOUTH EVERY NIGHT AT BEDTIME, [facility] Start Date: 01/07/19 Status: [...] USE 2 SPRAYS IN EACH NOSTRIL DAILY, [facility] Start Date: 01/07/19 Status: Ordered Problem List Condition Effective Dates Status Health Status Inform ant Acid reflux(Confirmed) Active Asthma, moderate persistant(Confirmed) Active Hypercholesterolemia(Confirmed) Active HTN (hypertension)(Confirmed) Active Morbid Obesity(Confirmed) Active Obesity due to excess calories(Confirmed) Active Prostatism(Confirmed) Active Seasonal allergic rhinitis(Confirmed) Active Sleep apnea(Confirmed) Active Vitamin D deficiency(Confirmed) Active Social History Social History Type Response Tobacco Other: 20 packyear h x, quit 2006. Sex
--- OUTSIDE RECORDS SUMMARY | 2024-02-15 09:59 | XMS_ITS | Continuity of Care Document ---
Author Organization [facility] Address [address] [place] [id number]- Care Team Providers Care Solar Panel Installation Supervisor Name Role Phone Soledad ADAME, Marques Primary Care Physician Encounter [facility] Date(s): 03/21/23 - 07/19/23 [facility] [address] [place] [id number]- Attending Physician: Rosa Elena Vega MD Admitting Physician: Rosa Elena Vega MD Referring Physician: Marques Rowe NP [...] Vaccine (oldterm) 4 12/07/06 Given 1Result Comment: [id number] exp 03/09/2021 2Result Comment: [facility] [id number] 3Admin Note: vis date 03/11/2012 4Result Comment: [id number] Medications Advair Diskus 500 mcg-50 mcg inhalation powder 1, puffs, Inhalation, 2 times a day, # 1 each, Refills 11, Tot. Refills 11, Maintenance, 07/13/22 22:22:00 EDT, Route to Pharmacy Electronically, NCPDP_ID- [id number], [facility], 183, cm, 07/13/22 22:09:00 EDT, Height Start Date: 07/13/22 Status: Ordered albuterol 0.083% inhalation solution 3 mL = 2.5 mg, Inhalation, Every 6 hours, PRN for wheezing/shortness of breath, # 60 mL, 0 Refills,Maintenance, 05/31/22 15:53:00 EDT, Solution, [facility], Partial fill upon patient request if the prescription is for a schedule II o... Start Date: 05/31/22 Status: Ordered albuterol CFC free 90 mcg/inh inhalation aerosol 2, puffs, Inhalation, Every 4 hours, PRN, # 2 each, Refills 5, Tot. Refills 5, Maintenance, 05/23/23 11:48:00 EDT, Aerosol, Route to Pharmacy Electronically, NCPDP_ID-[id number], [facility], 183, cm, 05/23/23 10:47:00 EDT, Height Start Date: 05/23/23 Stop Date: 11/19/23 Status: Ordered All Day Allergy 10 mg oral tablet 1 tablet, By Mouth, Daily, # 90 tablet, 3 Refills, 05/23/23 11:51:00 EDT, [facility], 183, cm, 05/23/23 10:47:00 EDT, Height Start Date: 05/23/23 Status: Ordered amLODIPine 10 mg oral tablet 1 tablet = 10 mg, By Mouth, Daily, # 90 tablet, 3 Refills, Maintenance, 03/30/23 15:54:00 EDT, Tablet, [facility], Partial fill upon patient request if the prescription is for a schedule II opioid drug., 183, cm, 03/30/23 15:10:00 EDT... Start Date: 03/30/23 Status: Ordered atorvastatin 10 mg oral tablet 1 tablet, By Mouth, Daily, # 90 tablet, 3 Refills, Maintenance, 07/13/22 22:12:00 EDT, [facility], 183, cm, 07/13/22 22:09:00 EDT, Height Start Date: 07/13/22 Status: Ordered empagliflozin 25 mg oral tablet 1 tablet = 25 mg, By Mouth, Daily in AM, # 90 tablet, 3 Refills, Maintenance, 03/30/23 15:48:00 EDT, Tablet, [facility], Partial fill upon patient [...] 02/13/22 14:23:00 EDT, Route to Pharmacy Electronically, [facility], Partial fill upon patientrequest if the prescription is for a schedule II op... Start Date: 02/13/22 Status: Ordered hydrochlorothiazide-lisinopril 25 mg-20 mg oral tablet 1 tablet, By Mouth, Daily, # 90 tablet, 3 Refills, Maintenance, 07/13/22 22:22:00 EDT, Tablet, [facility], Partial fill upon patient request, 1 tablet By Mouth Daily, 183, cm, 07/13/22 22:09:00 EDT, Height Start Date: 07/13/22 Status: Ordered Lantus Solostar Pen 100 units/mL subcutaneous solution See Instructions, INJECT 20 UNITS SUBCUTANEOUSLY ONCE DAILY AT BEDTIME, # 15 mL, 3 Refills, Maintenance, 07/11/22 17:50:00 EDT, [facility], 183, cm, 06/15/22 8:46:00 EDT, Height Start Date: 07/11/22 Status: Ordered metFORMIN 1000 mg oral tablet 1 tablet = 1,000 mg, By Mouth, 2 times a day, # 180 tablet, 3 Refills, Maintenance, 07/13/22 22:22:00 EDT, Tablet, [facility], Partial fill upon patient request if the prescription is for a schedule II opioid drug., 183, cm, 07/13/22... Start Date: 07/13/22 Stop Date: 07/08/23 Status: Ordered montelukast 10 mg oral tablet 10 mg, 1, tablet, By Mouth, Daily, # 90 tablet, Refills 3, Tot. Refills 3, Soft Stop, 05/23/23 11:51:00 EDT, Route to Pharmacy Electronically, [facility], 183, cm, 05/23/23 10:47:00 EDT, Height Start Date: 05/23/23 Stop Date: 05/17/24 Status: Ordered Nasonex 50 mcg/inh nasal spray 1 sprays, Nares, Both, Daily, # 17 Gm, 0 Refills, Maintenance, 06/08/22 13:55:00 EDT, [place], [facility], Partial fill upon patient request if the prescription is for a schedule II opioid drug., 1 sprays Nares, Both Daily, 183, cm, ... Start Date: 06/08/22 Status: Ordered omeprazole 20 mg oral enteric coated capsule 1 capsule, By Mouth, Daily, # 90 capsule, 0 Refills, Maintenance, 03/28/23 15:03:00 EDT, [facility], 183, cm, 01/19/23 17:39:00 EDT, Height Start Date: 03/28/23 Status: Ordered Pen [place], 31 G x 5 mm BD Ultra [...] 10-12, # 30 tablet, 0 Refills, Maintenance, 07/18/23 8:56:00 EST, Tablet, [facility], Partial fill upon patient request if the... Start Date: 07/18/23 Status: Ordered ProAir HFA 90 mcg/inh inhalation aerosol 2 puffs, Inhalation, Every 6 hours, PRN as needed for wheezing, # 18 Gm, 0 Refills, Maintenance, 05/04/23 23:22:00 EDT, Aerosol, [id number], Partial fill upon patient request if the prescription is for a schedule II opioid drug., 183,... Start Date: 05/04/23 Status: Ordered sildenafil 100 mg oral tablet 1 tablet = 100 mg, By Mouth, Daily, 1 hour before sexual activity, # 4 tablet, 0 Refills, Maintenance, 05/27/21 18:02:00 EDT, Tablet, [facility], Partial fill upon patient request ifthe prescription is for a schedule II opioid drug.,... Start Date: 05/27/21 Status: Ordered tranexamic acid 650 mg oral tablet 1 tablet = 650 mg, By Mouth, 3 times a day, # 18 tablet, 0 Refills, Maintenance, 03/30/23 15:51:00 EDT, Tablet, [facility], Partial fill upon patient request if the prescription is for a schedule II opioid drug., 183, cm, 03/30/23 15:... Start Date: 03/30/23 Stop Date: 04/05/23 Status: Ordered Vitamin D2 50,000 intl units (1.25 mg) oral capsule 1 capsule, By Mouth, Every week, # 13 capsule, 0 Refills, Maintenance, 03/29/23 14:07:00 EDT, [facility], 183, cm, [...] Team Personnel Name: Marques Rowe NP Position: [facility] PCO Associate Professional Member Role: PCP Address: Address: [address] [place] [address] [place] [address]- Name: Sophia Crawford RN Position: [facility] RN Member Role: Primary Care Nurse Care Team Related Persons Name: JOMAR VEGA Address: home [address] [place] [id number] Name: ASHLEIGH LAGOS Address: home [address] [address]
--- OUTSIDE RECORDS SUMMARY | 2024-02-15 09:59 | XMS_ITS | Continuity of Care Document ---
Author Organization [facility] Address [address] [place] [address]- Care Team Providers Care Fixture Relamper Name Role Phone Soledad ADAME, Marques Primary Care Physician En[facility] [place](s): 11/07/23 - 11/14/23 [facility] [address] [place] [address]- Attending Physician: Daija Arredondo MD Referring Physician: Marques Rowe NP Allergies, [...] Vaccine (oldterm) 4 12/07/06 Given 1Result Comment: [id number] exp 03/09/2021 2Result Comment: [facility] [id number] 3Admin Note: vis date 03/11/2012 4Result Comment: [id number] Medications Advair Diskus 500 mcg-50 mcg inhalation powder 1, puffs, Inhalation, 2 times a day, # 1 each, Refills 5, Tot. Refills 5, Maintenance, 10/09/23 16:05:00 EST, Route to Pharmacy Electronically, NCPDP_ID- [id number], [facility], 183, cm,10/09/23 15:14:00 EST, Height, 179.2, kg, 09/17/23... Start Date: 10/09/23 Status: Ordered albuterol 0.083% inhalation solution 3 mL = 2.5 mg, Inhalation, Every 6 hours, PRN for wheezing/shortness of breath, # 100 each, 3 Refills, Maintenance, 10/09/23 16:05:00 EST, Solution, [facility], Partial fill upon patient request if the prescription is for a schedule I... Start Date: 10/09/23 Stop Date: 10/03/24 Status: Ordered albuterol CFC free 90 mcg/inh inhalation aerosol 2, puffs, Inhalation, Every 4 hours, PRN, # 2 each, Refills 5, Tot. Refills 5, Maintenance, 10/09/23 16:05:00 EST, Aerosol, Route to Pharmacy Electronically, NCPDP_[id number], [facility], 183, cm, 10/09/23 15:14:00 EST, Height, 179.2,... Start Date: 10/09/23 Stop Date: 04/06/24 Status: Ordered All Day Allergy 10 mg oral tablet 1 tablet, By Mouth, Daily, # 90 tablet, 3 Refills, 10/09/23 16:05:00 EST, [facility], 183, cm, 10/09/23 15:14:00 EST, Height, 179.2, kg, 09/17/23 21:44:00 EST, Dry Weight Start Date: 10/09/23 Status: Ordered amLODIPine 10 mg oral tablet 1 tablet = 10 mg, By Mouth, Daily, # 90 tablet, 3 Refills, Maintenance, 10/09/23 16:05:00 EST, Tablet, [facility], Partial fill upon patient request if the prescription is for a schedule II opioid drug., 183, cm, 10/09/23 15:14:00 EST... Start Date: 10/09/23 Status: Ordered atorvastatin 10 mg oral tablet 1 tablet, By Mouth, Daily, # 90 tablet, 3 Refills, Maintenance, 10/09/23 16:05:00 EST, [facility], 183, cm, 10/09/23 15:14:00 EST, Height, 179.2, kg, 09/17/23 21:44:00 EST, Dry Weight Start Date: 10/09/23 Status: Ordered empagliflozin 25 mg oral tablet 1 tablet = 25 mg, By Mouth, Daily in AM, # 90 tablet, 3 Refills, Maintenance, 10/09/23 16:05:00 EST, Tablet, [facility], Partial fill upon patient request [...] 10/09/23 16:05:00 EST, Route to Pharmacy Electronically, [facility], Partial fill upon patientrequest if the prescription is for a schedule II op... Start Date: 10/09/23 Status: Ordered hydrochlorothiazide-lisinopril 25 mg-20 mg oral tablet 1 tablet, By Mouth, Daily, # 90 tablet, 3 Refills, Maintenance, 10/09/23 16:05:00 EST, Tablet, [facility], Partial fill upon patient request, 1 tablet By Mouth Daily, 183, cm, 10/09/23 15:14:00 EST, Height, 179.2, kg, 09/17/23 21:44:0... Start Date: 10/09/23 Status: Ordered Lantus Solostar Pen 100 units/mL subcutaneous solution See Instructions, INJECT 32 UNITS SUBCUTANEOUSLY ONCE DAILY AT BEDTIME, # 15 mL, 5 Refills, Maintenance, 10/09/23 16:05:00 EST, [facility], 183, cm, 10/09/23 15:14:00 EST, Height, 179.2, kg, 09/17/23 21:44:00 EST, Dry Weight Start Date: 10/09/23 Status: Ordered montelukast 10 mg oral tablet 10 mg, 1, tablet, By Mouth, Daily, # 90 tablet, Refills 3, Tot. Refills 3, Soft Stop, 10/09/23 16:05:00 EST, Route to Pharmacy Electronically, [facility], 183, cm, 10/09/23 15:14:00 EST, Height, 179.2, kg, 09/17/23 21:44:00 EST, Dry W... Start Date: 10/09/23 Stop Date: 10/03/24 Status: Ordered omeprazole 20 mg oral enteric coated capsule 1 capsule, By Mouth, Daily, # 90 capsule, 3 Refills, Maintenance, 10/09/23 16:05:00 EST, [facility], 183, cm, 10/09/23 15:14:00 EST, Height, 179.2, kg, 09/17/23 21:44:00 EST, Dry Weight Start Date: 10/09/23 Status: Ordered Ozempic 2 mg/3 mL (0.25 mg or 0.5 mg dose) subcutaneous solution = 0.25 mg, Subcutaneous Injection, Every week, rotate injection sites, # 3 mL, 0 Refills, Maintenance, 10/09/23 16:27:00 EST, Solution, [facility], Partial fill upon patient request if the prescription is for a schedule II opioid drug... Start Date: 10/09/23 Stop Date: 12/04/23 Status: Ordered Pen [place], 31 G x 5 mm BD Ultra [...] tablet, 0 Refills, Maintenance, 10/09/23 16:31:00 EST, [facility], Partial fill upon patient request if the prescri... Start Date: 10/09/23 Status: Ordered sildenafil 100 mg oral tablet 1 tablet = 100 mg, By Mouth, Daily, 1 hour before sexual activity, # 4 tablet, 0 Refills, Maintenance, 05/27/21 18:02:00 EDT, Tablet, [facility], Partial fill upon patient request ifthe prescription is for a schedule II opioid drug.,... Start Date: 05/27/21 Status: Ordered Vitamin D2 50,000 intl units (1.25 mg) oral capsule 1 capsule, By Mouth, Every week, # 13 capsule, 0 Refills, Maintenance, 10/09/23 16:05:00 EST, [facility], 183, cm, 10/09/23 15:14:00 [...] Confirmed Active Vitamin D deficiency Confirmed Active Vital Signs Most recent to oldest [Reference Range]: 1 Height 183 cm (11/07/23 5:47 PM) Weight 182 kg (11/07/23 5:47 PM) Oxygen Saturation [94-100 %] 99 % (11/07/23 5:47 PM) Pulse Rate [55-90 bpm] 93 bpm *H* (11/07/23 5:47 PM) Body Mass Index [18.5-24.99 kg/m2] 54.35 kg/m2 *>HHI* (11/07/23 5:47 PM) Blood Pressure [90-138/55-84 mm Hg] 132/ 81mm Hg (11/07/23 5:47 PM) Respiratory Rate [16-30 br/min] 16 br/mi n (11/07/23 5:47 PM) Temperature [96.8-100.4 DegF] 96.6 DegF *L* (11/07/23 5:47 PM) Mode of Delivery (Oxygen) Room air (11/07/23 5:47 PM) Blood pressure sites Arm, right (11/07/23 5:47 PM) Temperature Route Temporal (11/07/23 5:47 PM) Dry Weight 182 kg (11/07/23 5:47 PM) Weight Obtained Via Patient/family state d (11/07/23 5:47 PM) Dry Weight Obtained Via Patient/family s tated (11/07/23 5:47 PM) Social History Social History Type Response Tobacco Other: 20 packyear h x, quit 2006. Sex Note * Екатерина Mai [place]: PERFORM, SIGN, VERIFY Event Display: Patient Education/Instruction Authored Date: [id number] [facility] *[facility] Clinical Summary Name AMEE VEGA Age 53 Years 1970 PCP Soledad ADAME, Marques PCP Visit Date 11/07/2023 17:40:00 Additional Instructions: Scheduled Appointments?? Future Appointments ?*[place] [address]??[place],??[place],??[address] ?Phone:??--?Fax:??-- ?Appt. Date:??12/17/2023?1:00 PM ?Scheduled Provider:??Soledad ADAME, Marques Marie Follow-Up Instructions ?? Diagnosis Medications: Please continue your medications until treatment is completed or stopped by your provider. Discuss any questions related to medications with your provider. New Medications [facility] [address] [place] [id number], [phone] Polymyxin B-Trimethoprim Ophthalmic (polymyxin B-trimethoprim ophthalmic [address] u-1 mg/ml solution) 1 Drops Both eyes 4 times a day for 7 Days. Refills: 0. Next Dose: Medications to Continue with No Changes These medications were not printed or sent to your pharmacy Albuterol (albuterol 0.083% inhalation solution) 3 Milliliter Inhalation every 6 hours as needed for wheezing/shortness of breath for 90 Days. Refills: 3. Next Dose: Albuterol (albuterol CFC free 90 mcg/inh inhalation aerosol) 2 puff(s) Inhalation every 4 hours as needed as needed for wheezing for 30 Days. Refills: 5. Next Dose: Amlodipine (amLODIPine 10 mg oral tablet) 1 tab(s) Oral Daily. Refills: 3. Next Dose: Atorvastatin (atorvastatin 10 mg oral tablet) 1 tab(s) Oral Daily. Refills: 3. Next Dose: Cetirizine (All Day Allergy 10 mg oral tablet) 1 tab(s) Oral Daily. Refills: 3. Next Dose: Durable Medical Equipment (FreeStyle August 2 Monitor) Use to check blood glucose 4 times daily for diabetes. E11.9. Refills: 0. Next Dose: Durable Medical Equipment (FreeStyle August 2 Sensors) Use to check blood glucose 4 times daily for diabetes. E11.9. Refills: 5. Next Dose: Durable Medical Equipment (Pen [place], 31 G x 5 mm BD Ultra Fine III) use once daily as for Type 2Diabetes Mellitus. Refills: 3. Next Dose: empagliflozin (empagliflozin 25 mg oral tablet) 1 tab(s) Oral Daily in the morning. Refills: 3. Next Dose: Ergocalciferol (Vitamin D2 50,000 intl units (1.25 mg) oral capsule) 1 capsule Oral every week. Refills: 0. Next Dose: Fluticasone-Salmeterol (Advair Diskus 500 mcg-50 mcg inhalation powder) 1 puff(s) Inhalation twice a day. Refills: 5. Next Dose: Furosemide (furosemide 20 mg oral tablet) 1 tab(s) Oral Daily. Refills: 3. Next Dose: Hydrochlorothiazide-Lisinopril (hydrochlorothiazide-lisinopril 25 mg-20 mg oral tablet) 1 tab(s) Oral Daily. Refills: 3. Next Dose: Insulin Glargine (Lantus Solostar Pen 100 units/mL subcutaneous solution) INJECT 32 UNITS SUBCUTANEOUSLY ONCE DAILY AT BEDTIME. Refills: 5. Next Dose: Miscellaneous Rx (FREESTYLE LANCETS MISC) use to check blood sugar for diabetes 4x daily. E11.9. Refills: 3. Next Dose: Miscellaneous Rx (FREESTYLE LITE TEST STRP) use to check blood sugar for diabetes 4x daily. E11.9. Refills: 3. Next Dose: Montelukast (montelukast 10 mg oral tablet) 1 tab(s) Oral Daily for 90 Days. Refills: 3. Next Dose: Omeprazole (omeprazole 20 mg oral enteric coated capsule) 1 capsule Oral Daily. Refills: 3. Next Dose: PredniSONE (predniSONE 10 mg oral tablet) Day 1-4: 5 tabs By Mouth Daily Day 5-8: 3 tabs By Mouth Daily Day 9-10: 1 tab By Mouth Daily. Refills: 0. Next Dose: semaglutide (Ozempic 2 mg/3 mL (0.25 mg or 0.5 mg dose) subcutaneous solution) 0.25 Milligram Subcutaneous Injection every week for 8 week(s). rotate injection sites. Refills: 0. Next Dose: Sildenafil (sildenafil 100 mg oral tablet) 1 tab(s) Oral Daily. 1 hour before sexual activity. Refills: 0. Next Dose: Allergy Info:?? Other Food Allergy; shellfish Medications Given This Visit Future Orders ?No future orders Vital Signs Height 183 cm Weight 182 kg BMI 54.35 kg/m2 Blood Pressure 132 mm Hg/81 mm Hg Temperature 96.6 DegF Pulse Rate 93 bpm Respiratory Rate 16 br/min 02 Sat Mode of Delivery 99 %/Room air You can now view a summary of your hospital visit from the comfort of your home through a free online portal called [employer]. [employer] is a website that allows you to securely view your medical information including discharge summary, medications and follow-up visits. ??You can alsosend a secure electronic message to your doctor???s office to request appointments, renew medications or just ask a question. You can enroll at [email or web address] or register during your next office visit. Disclaimer:?? The information provided is of a general nature and is intended to be used in conjunction with the recommendations and advice of your health care practitioner. ??Every effort has been made to ensure that the information provided is accurate and complete at the time it is provided to you however, as your needs change, or, as new ??information becomes available, different or additional instructions may be required. If you have questions, please consult with your primary care provider or pharmacist, as appropriate. ??This information is not intended to serve as substitution for assessment and evaluation by a qualified health care provider. If you do not have a primary care provider, you may find a [facility] provider by calling [facility] [employer] Link at [phone]. [facility], in keeping with [facility] guidance, no longer requires face masks for staff, patientsor visitors in most situations. Similar to time spent indoors at other locations, there is the chance that you were exposed to respiratory viruses during your time with us (such as flu or COVID-19).? If you develop symptoms concerning for a viral respiratory infection, please seek testing (and treatment if indicated) from your medical provider or home test kit. For information about the plan of care including goals and instructions for your diagnosis, please see the patient education orders section of this document. Patient Education Materials?? The content of this educational material or handout may have been modified, supplemented, or adapted from its original content and format to support your individualized medical care. Additional Provider Instructions: Patient Care team information Care Team Personnel Name: Alicja Manzanares RN Position: [facility] RN Member Role: Primary Care Nurse Name: Sri Jacobo RN Position: [facility] RN Member Role: Primary Care Nurse Name: Marques Rowe NP Position: [facility] PCO Associate Professional Member Role: PCP Address: Address: [address] [place] [id number] Name: Lola Fox RN Position: [facility] RN Member Role: Primary Care Nurse Name: Malorie Salas RN Position: S RN Member Role: Primary Care Nurse Name: Shayla Frost RN Position: S RN Member Role: Primary Care Nurse Name: Sophia Crawford RN Position: [facility] Onco RN Member Role: Primary Care Nurse Care Team Related Persons Name: JOMAR VEGA Address: home [address] [place] [id number] Name: ASHLEIGH LAGOS Address: home [address] [place] [id number]
--- OUTSIDE RECORDS SUMMARY | 2024-02-15 09:59 | XMS_ITS | Continuity of Care Document ---
[facility] Address [address] [place] [address] [address] [place] [address]- Care Team Providers Care Shrimp Trawler Name Role Phone Soledad [place] CONSTABLE, Marques Primary Care Physician Encounter [facility] Date(s): 08/02/20 - 09/01/[address] [place] [address]- Attending Physician: Shivani Laboy Admitting Physician: Shivani [...] Vaccine (oldterm) 4 12/07/06 Given 1Result Comment: [id number] exp 03/09/2021 2Result Comment: [facility] [id number] 3Admin Note: vis date 03/11/2012 4Result Comment: [id number] Problem List Condition Effective Dates Status Health Status Inform ant Acid reflux(Confirmed) Active Asthma, moderate persistant(Confirmed) Active Hypercholesterolemia(Confirmed) Active HTN (hypertension)(Confirmed) Active Morbid Obesity(Confirmed) Active Prostatism(Confirmed) Active Seasonal allergic rhinitis(Confirmed) Active Sleep apnea(Confirmed) Active Chest tightness(Confirmed) Active Vitamin D deficiency(Confirmed) Active Social History Social History Type Response Tobacco Other: 20 packyear h x, quit 2006. Sex
== END 2024-02-12 14:56 | disposition home or self-care (01) ==
LOC: HO.HUSH 14:25
PROVIDERS: PCP Nurse Practitioner Family; Visit Provider Urology
DX: N40.1 Benign prostatic hyperplasia with lower urinary tract symptoms (principal); N13.8 Other obstructive and reflux uropathy; R31.0 Gross hematuria
CPT/HCPCS: 99213

== ENCOUNTER → 2024-02-12 14:25 | Outpatient (BNVA) | payer OTHER, SELFPAY | PROVIDERS: PCP Nurse Practitioner Family; Visit Provider Urology ==

== ENCOUNTER 2024-10-22 13:40 | Outpatient (AMB) | payer OTHER, SELFPAY ==
--- NOTE | 2024-10-22 13:40 | A.OFFVIS_ITS ---
Intake Visit Reasons: follow up/medication Intake Note: Pt presents as a telehealth visit for a follow up on medications. Allergies shellfish derived [SHELLFISH DERIVED] Allergy (Mild, Verified 10/22/24 13:40) [facility] Comments Details: Tyshawn VEGA is a very pleasant male. He is a patient of Dr. Rowe. He is seen for the following urologic conditions - lower urinary tract symptoms - recurring hematuria Six-month follow-up Telemedicine Evaluation 15 min Consultation DoxMaterial Mix Jackie Video Plan procedure Dutasteride renewed Terazosin renew Has tranexamic acid Lower Urinary Tract Symptoms: Continue with plan follow-up. Current visit is for further evaluation of, lower urinary tract symptoms, predominate obstructive symptoms. Current treatment includes medication, 5-AR. Prior treatments include 03/26 , procedure, TURP. Prostate Symptom Score Moderate (9-19), Bother 3. Symptoms include incomplete emptying, weak stream, nocturia (>2), and are progressing. Results from testing include cystoscopy Enlarged median lobe 04/26 renal/bladder us Yes PVR 50 Prior Prostate Score mild. Prostate volume 50+gm. Testing at next visit will include Prostate Symptom Score. Treatment plan continue with current medications [facility] Medical History Hematuria Asthma Dysuria Gross hematuria Bladder outlet obstruction Review of Systems Const All systems reviewed & are unremarkable except as noted in HPI and below Reports no additional complaints Resp Reports no additional complaints GI Reports no additional complaints Reports as per HPI Musc Reports no additional complaints Physical Exam Telemedicine evaluation Appropriate responses Regular breathing rate and rhythm HEENT Head: Yes normal to inspection Ears: hearing grossly normal bilaterally Eyes General: appearance normal, both eyes and all related structures Neck Neck: Yes normal visual inspection Chest Chest palpation & inspection: normal inspection of the chest Resp Effort & Inspection: normal respiratory effort and able to speak in complete sentences Telehealth Telehealth Telehealth Platform: Telephone Location of provider rendering services: practice address Location of patient: address on file Patient Identification confirmed using: Name, : Yes Telehealth method: voice only Patient verbally consented to treatment: Yes Patient verbally consented to billing insurance company: Yes Patient informed of any privacy concerns related to visit: Yes Assessment & Plan Assessment & Plan (1) BPH w urinary obs/LUTS: Code(s): N40.1 - Benign prostatic hyperplasia with lower urinary tract symptoms; N13.8 - Other obstructive and reflux uropathy Category: Medical Plan Risks, benefits and alternatives to therapy were discussed. These include but are not limited to infection, bleeding, damage to local organs and tissues, need for further interventions. Anesthetic risks regarding cardiac arrhythmia, blood clots, and potential mortality were discussed. The patient understands the typical recovery time and the outpatient nature of the procedure. After consideration of these risks the patient gives full informed consent and they wish to move ahead with the procedure. GreenLight laser prostate redo Medications: Refilled dutasteride 0.5 mg PO DAILY 90 caps 1RF N13.8 - Other obstructive and reflux uropathy, N40.1 - Benign prostatic hyperplasia with lower urinary tract symptoms terazosin 10 mg PO BEDTIME 90 days 90 caps 1RF Patient Instructions: This note is constructed using voice recognition software. While every effort has been made to ensure accuracy paint prepper errors may have been included. Imaging studies, laboratory and physical exam results were discussed and re viewed in detail. No major barriers to patient understanding were identified. An opportunity to ask questions regarding the treatment plan was provided. All questions were answered. The patient expressed understanding and agreement with the above treatment plan. The patient is aware they should contact our office by phone for worsening of their current condition or the appearance of new urologic symptoms. Compliance is encouraged with any medications and followup testing that is ordered. It is a privilege to participate in the urologic care of your patient. If you have any questions or concerns regarding treatment for the above conditions, or other urologic issues, please do not hesitate to contact me. The office telephone contact is [phone]. Sincerely, Dr Miguel Ángel Soriano MD, [facility] - Urology Compassionate Specialist Care for the Genitourinary System Coding Level of Care Code Tele Est Pt Level 3 (61806) Diagnoses BPH w urinary obs/LUTS N40.1; N13.8
--- OUTSIDE RECORDS SUMMARY | 2024-10-22 15:02 | XMS_ITS | Data Portability ---
Author Organization ROSANNA Sahu [employer] [facility] [address] Address [address] [place] [address] Assessment No assessment recorded. Plan of Treatment Reminders Order Date Submit Date Provider Last Modified By Organization Details Last Modified Time Details Appointments None record ed. Lab None record ed. Referral None record ed. Procedures None record ed. Surgeries None record ed. Imaging None record ed. Medication Orders None record ed. Patient TargetsNo targets recorded. Patient Instructions Encounter Date Encounter Id Patient Instructions Last Modified By Organization Details Last Modified Time 05/17/2023 [id number] On examination, Blood sugar was done using glocometer. The result was 495. Advised patient to seek higher level of care at local ER BUT PATIENT stated this was his baseline and refused to go. Went over risks and alternatives. Pt voiced understanding. Pt was not qualified for employment. He was redirected to his PCP for health management and final determination. Pt voiced understanding and agreed to plan. Left in stable condition. [email or web address] Not available 05/17/2023 16:58:35 Reason for Referral None Reported. Procedures Surgical History Date Name Laterality Status Provider Name and Address Organization Details Recorded Time 3 OC-UDS Send Out Template NON DOT completed JOSE ALFREDO LEWIS [place] - [facility] 05/17/2023 16:31:33 3 OC- Physical completed JOSE ALFREDO MARTE - [facility] 05/17/2023 15:35:42 Imaging Results None recorded. Procedure Notes None recorded. Medical Equipment None Reported. Medications Name Sig Start Date Stop Date Status Note LastModified by Organization Details LastModified Time freestyle lite test strips strp active Not Available Not Available Not Available freestyle lancets misc active Not Available Not Available Not Available prednisone 10 mg tablet active Not Available Not Available No t Available albuterol sulfate 2.5 mg/3 mL (0.083 %) solution for nebulization active Not Available Not Available Not Available cetirizine 10 mg tablet active Not Available Not Available No t Available atorvastatin 10 mg tablet active Not Available Not Available Not Available prednisone 20 mg tablet active Not Available Not Available No t Available ciprofloxacin 500 mg tablet TAKE 1 TABLET BY MOUTH TWICE DAILY FOR 7 DAYS active Not Available Not Available No t Available amlodipine 10 mg tablet active Not Available Not Available No t Available metformin 1,000 mg tablet active Not Available Not Available Not Available fluticasone 500 mcg-salmeterol 50 mcg/dose blistr powdr for inhalation active Not Available Not Availab le Not Available mometasone 50 mcg/actuation nasal spray active Not Available Not Available Not Available omeprazole 20 mg capsule,delaye d release active Not Available Not Available No t Available lisinopril 20 mg-hydrochloro thiazide 25 mg tablet active Not Available Not Available Not Available montelukast 10 mg tablet active Not Available Not Available No t Available lorazepam 1 mg tablet active Not Available Not Available Not Available albuterol sulfate HFA 90 mcg/actuation aerosol inhaler INHALE 2 PUFFS BY MOUTH EVERY 6 HOURS NEEDED FOR WHEEZING active Not Available Not Available No t Available Vitamin D2 1,250 mcg (50,000 unit) capsule active Not Available Not Available Not Available fluticasone propionate 50 mcg/actuation nasal spray,suspensi on active Not Available Not Available Not Available amoxicillin 875 mg-potassium clavulanate 125 mg tablet active Not Available Not Availabl e Not Available dutasteride 0.5 mg capsule active Not Available Not Availab le Not Available BD Ultra-Fine Mini Pen Needle 31 gauge x 3/16 active Not Available Not Availabl e Not Available Lantus Solostar U-100 Insulin 100 unit/mL (3 mL) subcutaneous pen active Not Available Not Available Not Available tranexamic acid 650 mg tablet active Not Available Not Available Not Available Jardiance 10 mg tablet active Not Available Not Available No t Available Jardiance 25 mg tablet active Not Available Not Available No t Available ProAir RespiClick 90 mcg/actuation breath activated active Not Available Not Available No t Available FreeStyle August 2 Sensor kit active Not Available Not Available Not Available FreeStyle August 2 Sunol active Not Available Not Availab le Not Available BinaxNOW COVID-19 Ag Self Test kit TEST DIRECTED TODAY active Not Available Not Available No t Available Vitals None Recorded Social History None recorded. Functional Status None recorded. Mental Status None recorded. Family History Nothing Reported. Medical History No medical history recorded. Past Encounters Encounter ID Performer Location Encounter Start Date Encounter Closed Date Diagnosis/Indication Diagnosis SNOMED-CT Code Diagnosis ICD10 Code Diagnosis Note [id number] [address] [facility] [place] [address] 03/13/2019 18:05:48 03/13/2019 19:37:27 [id number] [address] [facility] [place] [address] 10/01/2019 19:24:12 10/01/2019 20:52:14 [id number] [address] [facility] [place] [address] 05/26/2019 19:44:08 05/26/2019 20:36:58 [id number] [address] [facility] [place] [address] 07/30/2019 19:51:18 07/30/2019 20:00:25 [id number] [address] [facility] [place] [address] 01/19/2019 17:57:31 01/19/2019 18:53:53 [id number] ROSANNA BENITEZ [address] [facility] [place] [address] 05/17/2023 14:59:38 05/17/2023 16:59:04 History and physical examination, occupation [id number] Z02.1 Health Concerns Section Related Observation LastModified by Organization Detai ls LastModified Time None Recorded Concern Status LastModified by Organization Details LastModified Time None Recorded Advance Directives Directive None Recorded Payers Encounter Date Sequence Insurance Name Policy Number Policy Sanchez Covered Member ID Sanchez Member ID Guarantor Name 03/13/2019 2 [facility] [id number] Payam Witt [id number] Payam Witt 05/26/2019 2 [facility] [id number] Payam Witt [id number] Williamer Eduar 07/30/2019 2 [facility] [id number] 23 Payam Witt [id number] Payam Witt 10/01/2019 1 [employer]: ELIAS (PPO) [id number] Payam Witt [id number] Payam Witt 10/01/2019 2 [facility] [id number] Payam Eduar [id number] Raymundoelodia Eduar Notes Date Note Type Note Provider Name and Address Organization Details Recorded Time 05/17/2023 text/html Patient with h/o asthma and uncontrolled diabetes presents here for medical evaluation for employment history ROSANNA BENITEZ [address] [place], [address], [place] - [facility] 05/17/2023 16:58:52
== END 2024-10-22 13:59 | disposition home or self-care (01) ==
LOC: HO.HUSH 13:40
PROVIDERS: PCP Nurse Practitioner Family; Visit Provider Urology
DX: N40.1 Benign prostatic hyperplasia with lower urinary tract symptoms (principal); N13.8 Other obstructive and reflux uropathy
CPT/HCPCS: 98013

== ENCOUNTER → 2024-10-22 13:40 | Outpatient (BNVA) | payer OTHER, SELFPAY | PROVIDERS: PCP Nurse Practitioner Family; Visit Provider Urology ==